=== PATIENT | male | born 1965 | race Caucasian/White ===

== ENCOUNTER 2018-02-25 13:41 | Inpatient (IN) | payer OTHER ==
[2018-02-25] MEDS ORDERED: SODIUM CHLORIDE 0.9% 500 ML 500 ML IV STA (14:31)
[2018-02-25] MEDS ORDERED: ALBUTEROL NEBULIZED 2.5 MG/3 ML INHALATION STA (14:31)
[2018-02-25] MEDS ORDERED: methylPREDNISolone SOD SUCCI 125 MG/2 ML VIAL IV STA (14:31)
[2018-02-25] MEDS ORDERED: IPRATROPIUM 0.5 MG/2.5 ML NEBU INHALATION STA (14:31)
--- NOTE | 2018-02-25 14:38 | ED ---
SOB HPI - General Chief Complaint: Shortness of Breath Stated Complaint: nausea, vomiting Time Seen by Provider: 02/25/18 14:25 Source: patient Mode of arrival: ambulatory Limitations: physical limitation - History of Present Illness Initial Comments: 52-year-old male patient with past medical history significant for end-stage COPD presents to the emergency department today with complaints of vomiting and shortness of breath. Patient states that he started to feel worse yesterday. Patient states he has vomited up amounts of phlegm multiple times over the last couple of days. States that he feels very short of breath. He does wear 3 L of oxygen at home, states that he feels like he needs to be increased. States he did do 2 breathing treatments today and doesn't seem to have helped. Patient denies any chest pain with this. Denies any abdominal pain with this. Denies any constipation or diarrhea. Last bowel movement was yesterday morning. Patient states he is now feeling hungry and is requesting food. He denies any swelling or weakness to his extremities. Denies any fevers or chills. Patient denies any recent rash, back pain, numbness, tingling, dizziness , weakness, hematuria, dysuria, urinary urgency, urinary frequency, headache, visual changes, or any other complaints. - Related Data Home Medications Medication Instructions Recorded Confirmed Acetaminophen Tab [Tylenol Tab] 650 mg PO Q4H 02/25/18 02/25/18 Albuterol Inhaler [Ventolin Hfa 1 - 2 puff INHALATION RT-Q4H PRN 02/25/18 Inhaler] Ibuprofen [Motrin] 600 mg PO Q6HR PRN 02/25/18 02/25/18 Ipratropium Nebulized [Atrovent 0.5 mg INHALATION RT-Q6H 02/25/18 02/25/18 Nebulized 0.2 MG/ML] Lisinopril 20 mg PO DAILY 02/25/18 02/25/18 cloNIDine HCL [Catapres] 0.1 mg PO Q4H PRN 02/25/18 02/25/18 traZODone HCL 50 mg PO HS 02/25/18 02/25/18 Allergies Allergy/AdvReac Type Severity Reaction Status Date / Time naloxone [From Narcan] Allergy Anaphylaxis Verified 02/25/18 16:29 Review of Systems ROS Statement: Those systems with pertinent positive or pertinent negative responses have been documented in the HPI. ROS Other: All systems not noted in ROS Statement are negative. Past Medical History Past Medical History: Cancer, COPD Additional Past Surgical History / Comment(s): LUNG SX WHEN A KID FOR CANCER Past Psychological History: No Psychological Hx Reported Smoking Status: Former smoker Past Alcohol Use History: None Reported Past Drug Use History: None Reported, Methamphetamine General Exam Limitations: physical limitation General appearance: alert, in no apparent distress, other (This well-developed, thin appearing adult male patient who appears her than stated age. Vital signs upon presentation are temperature 98.2F, pulse 85, respirations 24, blood pressure 154/82, pulse ox 91% on 3 L of oxygen via nasal cannula.) Eye exam: Present: normal appearance, PERRL, EOMI. Absent: scleral icterus, conjunctival injection, periorbital swelling ENT exam: Present: normal exam, normal oropharynx, mucous membranes moist, TM's normal bilaterally Respiratory exam: Present: accessory muscle use, decreased breath sounds, other (Tachypnea). Absent: normal lung sounds bilaterally, respiratory distress, wheezes, rales, rhonchi, stridor Cardiovascular Exam: Present: regular rate, normal rhythm, normal heart sounds. Absent: systolic murmur, diastolic murmur, rubs, gallop, clicks GI/Abdominal exam: Present: soft, tenderness (Tenderness right upper quadrant abdomen), guarding, normal bowel sounds. Absent: distended, rebound, rigid Neurological exam: Present: alert, oriented X3, CN II-XII intact Psychiatric exam: Present: normal affect, normal mood Skin exam: Present: warm, dry, intact, normal color. Absent: rash Course Vital Signs 02/25/18 02/25/18 02/25/18 13:55 15:03 15:20 Temperature 98.2 F Pulse Rate 85 85 85 Respiratory 16 Rate Blood Pressure 154/82 O2 Sat by Pulse 91 L Oximetry 02/25/18 16:01 Temperature Pulse Rate 85 Respiratory Rate Blood Pressure O2 Sat by Pulse Oximetry Medical Decision Making - Medical Decision Making 52-year-old male patient presents the emergency department today with complaints of shortness of breath or vomiting. Physical examination did reveal decreased breath sounds. Patient is 91% on 3 L of oxygen, appeared short of breath with accessory muscle use. Labs reviewed and did reveal mildly elevated potassium, elevated CO2. Patient did have elevated BNP but no signs of gross heart failure on x-ray. No extremity edema. Patient was given continuous breathing treatments and IV steroids. He does report symptom improvement however still satting 89-93% on 4 L of oxygen. We will admit for continued bronchodilators and IV steroids. Patient has a nonstaff physician so we will admit to Dr. Peraza. - Lab Data Result diagrams: 02/25/18 15:20 02/25/18 15:20 Lab Results 02/25/18 02/25/18 02/25/18 Range/Units 15:20 15:20 15:20 WBC 8.1 (3.8-10.6) k/uL RBC 5.34 (4.30-5.90) m/uL Hgb 16.8 (13.0-17.5) gm/dL Hct 52.4 (39.0-53.0) % MCV 98.0 (80.0-100.0) fL MCH 31.4 (25.0-35.0) pg MCHC 32.0 (31.0-37.0) g/dL RDW 13.4 (11.5-15.5) % Plt Count 264 (150-450) k/uL Neutrophils % 74 % Lymphocytes % 16 % Monocytes % 7 % Eosinophils % 1 % Basophils % 0 % Neutrophils # 6.0 (1.3-7.7) k/uL Lymphocytes # 1.3 (1.0-4.8) k/uL Monocytes # 0.5 (0-1.0) k/uL Eosinophils # 0.1 (0-0.7) k/uL Basophils # 0.0 (0-0.2) k/uL Hypochromasia Slight PT (9.0-12.0) sec INR (<1.2) APTT (22.0-30.0) sec Sodium 139 (137-145) mmol/L Potassium 5.8 H (3.5-5.1) mmol/L Chloride 93 L (98-107) mmol/L Carbon Dioxide 39 H (22-30) mmol/L Anion Gap 7 mmol/L BUN 29 H (9-20) mg/dL Creatinine 0.88 (0.66-1.25) mg/dL Est GFR (CKD-EPI)AfAm >90 (>60 ml/min/1.73 sqM) Est GFR (CKD-EPI)NonAf >90 (>60 ml/min/1.73 sqM) Glucose 80 (74-99) mg/dL Calcium 9.5 (8.4-10.2) mg/dL Magnesium 2.1 (1.6-2.3) mg/dL Total Bilirubin 0.8 (0.2-1.3) mg/dL AST 34 (17-59) U/L ALT 23 (21-72) U/L Alkaline Phosphatase 99 (38-126) U/L Total Creatine Kinase 77 (55-170) U/L CK-MB (CK-2) 5.0 H (0.0-2.4) ng/mL CK-MB (CK-2) Rel Index 6.5 Troponin I 0.018 (0.000-0.034) ng/mL NT-Pro-B Natriuret Pep pg/mL Total Protein 7.7 (6.3-8.2) g/dL Albumin 4.1 (3.5-5.0) g/dL Amylase 42 (30-110) U/L Lipase 20 L (23-300) U/L 02/25/18 02/25/18 Range/Units 15:20 15:20 WBC (3.8-10.6) k/uL RBC (4.30-5.90) m/uL Hgb (13.0-17.5) gm/dL Hct (39.0-53.0) % MCV (80.0-100.0) fL MCH (25.0-35.0) pg MCHC (31.0-37.0) g/dL RDW (11.5-15.5) % Plt Count (150-450) k/uL Neutrophils % % Lymphocytes % % Monocytes % % Eosinophils % % Basophils % % Neutrophils # (1.3-7.7) k/uL Lymphocytes # (1.0-4.8) k/uL Monocytes # (0-1.0) k/uL Eosinophils # (0-0.7) k/uL Basophils # (0-0.2) k/uL Hypochromasia PT 10.4 (9.0-12.0) sec INR 1.0 (<1.2) APTT 27.4 (22.0-30.0) sec Sodium (137-145) mmol/L Potassium (3.5-5.1) mmol/L Chloride (98-107) mmol/L Carbon Dioxide (22-30) mmol/L Anion Gap mmol/L BUN (9-20) mg/dL Creatinine (0.66-1.25) mg/dL Est GFR (CKD-EPI)AfAm (>60 ml/min/1.73 sqM) Est GFR (CKD-EPI)NonAf (>60 ml/min/1.73 sqM) Glucose (74-99) mg/dL Calcium (8.4-10.2) mg/dL Magnesium (1.6-2.3) mg/dL Total Bilirubin (0.2-1.3) mg/dL AST (17-59) U/L ALT (21-72) U/L Alkaline Phosphatase (38-126) U/L Total Creatine Kinase (55-170) U/L CK-MB (CK-2) (0.0-2.4) ng/mL CK-MB (CK-2) Rel Index Troponin I (0.000-0.034) ng/mL NT-Pro-B Natriuret Pep 3750 pg/mL Total Protein (6.3-8.2) g/dL Albumin (3.5-5.0) g/dL Amylase (30-110) U/L Lipase (23-300) U/L - EKG Data -: EKG Interpreted by [facility] EKG Comments: EKG obtained at 1437 shows sinus rhythm with PACs, right axis deviation, and incomplete right bundle branch block. Ventricular rate is 89, WA interval 164, QR latter day 106, QT 370, QTC 450. No evidence of ST elevation or depression. - Radiology Data Radiology results: report reviewed, image reviewed 3 views of the abdomen are obtained. There is no sign of intestinal obstruction or pneumoperitoneum. Fecal pattern is normal. There are no pathologic calcifications over the kidneys. No sign of a mass. There is apparent elevated left diaphragm. Impression by Dr. Moreno shows nonacute abdomen. Two-view x-ray of the chest is obtained. Heart appears enlarged. His elevated left diaphragm. There are surgical clips in the left side of the chest. Is no gross heart failure. There is coarsening of the lung markings. There is slight blunting of the right costophrenic angle. Impression by Dr. Moreno shows pulmonary fibrosis and atelectasis. Elevated left diaphragm could relate paralysis her previous surgery and pulmonary resection. Clinical correlation needed. No gross heart failure. Disposition Clinical Impression: COPD exacerbation Disposition: ADMITTED IP TO THIS [facility] Condition: Serious Referrals: Nonstaff,Physician [Primary Care Provider] - 1-2 days Decision to Admit Reason: Admit from EC Decision Date: 02/25/18 Decision Time: 17:09
[2018-02-25 15:43] LABS: Basophils % (A) 0 %; Eosinophils # (A) 0.1 k/uL (0-0.7); Eosinophils % (A) 1 %; HCT 52.4 % (39.0-53.0); HGB 16.8 gm/dL (13.0-17.5); Hypochromasia Slight; Lymphocytes # (A) 1.3 k/uL (1.0-4.8); Lymphocytes % (A) 16 %; MCH 31.4 pg (25.0-35.0); Mean Platelet Volume 7.1; Monocytes # (A) 0.5 k/uL (0-1.0); Monocytes % (A) 7 %; Neutrophils % (A) 74 %; Platelet Count 264 k/uL (150-450); RBC 5.34 m/uL (4.30-5.90); RDW 13.4 % (11.5-15.5); WBC 8.1 k/uL (3.8-10.6)
[2018-02-25 15:53] LABS: Partial Thromboplastin Time 27.4 sec (22.0-30.0); Prothrombin Time 10.4 sec (9.0-12.0)
[2018-02-25 15:54] LABS: ALT 23 U/L (21-72); AST 34 U/L (17-59); Albumin 4.1 g/dL (3.5-5.0); Alkaline Phosphatase 99 U/L (38-126); Amylase 42 U/L (30-110); Anion Gap 7 mmol/L; Blood Urea Nitrogen 29 mg/dL (9-20); Calcium 9.5 mg/dL (8.4-10.2); Carbon Dioxide 39 mmol/L (22-30); Chloride 93 mmol/L (98-107); Glucose 80 mg/dL (74-99); Lipase 20 U/L (23-300); Magnesium 2.1 mg/dL (1.6-2.3); Potassium 5.8 mmol/L (3.5-5.1); Sodium 139 mmol/L (137-145); Total Bilirubin 0.8 mg/dL (0.2-1.3); Total Protein 7.7 g/dL (6.3-8.2)
[2018-02-25 16:18] LABS: Troponin I 0.018 ng/mL (0.000-0.034)
--- NOTE | 2018-02-25 16:53 | XR ---
EXAMINATION TYPE: XR KUB DATE OF EXAM: 02/25/2018 COMPARISON: NONE HISTORY: Pain TECHNIQUE: 3 views supine FINDINGS: There is no sign of intestinal obstruction or pneumoperitoneum. Fecal pattern is normal. Th ere are no pathologic calcifications over the kidneys. There is no sign of a mass. There is apparent elevated left diaphragm. IMPRESSION: Nonacute abdomen.
--- NOTE | 2018-02-25 16:55 | XR ---
EXAMINATION TYPE: XR chest 2V DATE OF EXAM: 02/25/2018 COMPARISON: NONE HISTORY: Cough and congestion TECHNIQUE: Frontal and lateral views of the chest are obtained. FINDINGS: Heart appears enlarged. There is elevated left diaphragm. There are surgical clips in the left side of the chest. There is no gross heart failure. There is coarsening of the lung markings. Th ere is slight blunting of right costophrenic angle. IMPRESSION: Pulmonary fibrosis and atelectasis. Elevated left diaphragm could relate to paralysis or previous surgery and pulmonary resection. Clinical correlation needed. No gross heart failure.
[2018-02-25 17:42] LABS: Appearance,Urine Clear (Clear); Bilirubin,Urine Negative (Negative); Blood,Urine Negative (Negative); Color,Urine Yellow; Glucose,Urine (UA) Negative (Negative); Ketones,Urine Negative (Negative); Leukocyte Esterase,Urine Negative (Negative); Nitrite,Urine Negative (Negative); PH, Urine 5.5 (5.0-8.0); Protein,Urine Trace (Negative); Specific Gravity,Urine 1.017 (1.001-1.035); Urobilinogen,Urine <2.0 mg/dL (<2.0)
[2018-02-25] MEDS: ACETAMINOPHEN TAB 325 MG TAB PO SCH ×2 (18:09→22:41)
[2018-02-25] MEDS: methylPREDNISolone SOD SUCCI 125 MG/2 ML VIAL IV SCH (18:11)
[2018-02-25] MEDS: IPRATROPIUM-ALBUTEROL 3 ML NEB INHALATION SCH (20:15)
[2018-02-25] MEDS: traZODone HCL 50 MG TAB PO SCH (22:43)
[2018-02-25] MEDS: BENZONATATE 100 MG CAP PO SCH (22:43)
[2018-02-26] MEDS: DEXTROSE 5% IN WATER 1,000 ML IV SCH ×3 (00:21→19:48)
[2018-02-26] MEDS: methylPREDNISolone SOD SUCCI 125 MG/2 ML VIAL IV SCH ×4 (00:23→17:01)
[2018-02-26] MEDS: ACETAMINOPHEN TAB 325 MG TAB PO SCH (03:06)
[2018-02-26 07:24] LABS: Blood Urea Nitrogen 30 mg/dL (9-20); Calcium 9.2 mg/dL (8.4-10.2); Chloride 94 mmol/L (98-107); Glucose 218 mg/dL (74-99); Potassium 5.4 mmol/L (3.5-5.1); Sodium 138 mmol/L (137-145)
[2018-02-26 07:30] LABS: Anion Gap 6 mmol/L; Carbon Dioxide 38 mmol/L (22-30)
[2018-02-26] MEDS: IPRATROPIUM-ALBUTEROL 3 ML NEB INHALATION SCH ×4 (08:45→19:32)
[2018-02-26] MEDS: BENZONATATE 100 MG CAP PO SCH ×3 (09:02→21:10)
[2018-02-26] MEDS: LISINOPRIL 20 MG TAB PO SCH (09:02)
[2018-02-26] MEDS ORDERED: METHADONE 5 MG TAB PO SCH (11:00)
[2018-02-26] MEDS ORDERED: METHADONE 5 MG TAB PO ONE (12:03)
[2018-02-26] MEDS ORDERED: METHADONE 10 MG TAB PO ONE (12:15)
--- NOTE | 2018-02-26 13:34 | HP ---
HISTORY AND PHYSICAL CHIEF COMPLAINT: Difficulty breathing. HISTORY OF PRESENT ILLNESS: This is the first admission for this 52-year-old white male from [place]. He was brought to the emergency room with shortness of breath. He was treated, but did not improve and was admitted for inpatient care. REVIEW OF SYSTEMS: He has had no neurologic problems, difficulty with vision or hearing, hemoptysis, chest pain, heart disease, hypertension, orthopnea, PND, nausea, vomiting, hematemesis, melena, hematochezia, colitis, diverticulosis, diverticulitis, hemorrhoids, jaundice, hepatitis, cirrhosis, hematuria, frequency, urgency, renal failure, diabetes, etc. Past medical history, family history and personal and social histories reveal that he used an albuterol inhaler. Patient is also on Motrin 600 mg q.i.d., clonidine 0.1 q.4 hours, lisinopril 20 mg daily and trazodone 50 mg at bedtime. He is allergic NALOXONE. Laboratory studies reveal that his CBC is normal. Potassium was slightly high at 5.8. BUN is 29 with a creatinine of 0.88. Cardiac enzymes are normal. Urine was clear. PHYSICAL EXAM: Temperature is 97.9, blood pressure 157/89 with a respiratory rate of 20 and a pulse of 84. GENERAL: He appeared to be well developed, well nourished, in no acute distress. Skin color is normal. Skin is warm, dry. Lymph nodes not enlarged. Head, ears, eyes, nose, mouth, and throat were normal and neck veins not distended. Thyroid not enlarged. Chest demonstrated increased AP diameter with poor breath sounds throughout with expiratory wheezing and a prolonged expiratory phase. There is scattered rales and rhonchi. Cardiac exam demonstrates sinus tachycardia. Abdomen is soft, nontender without visceromegaly or masses. Extremities are normal. Neurologically, he is intact. He is admitted to the hospital with diagnoses: 1. Exacerbation of chronic obstructive pulmonary disease. 2. History of substance abuse. 3. History of hypertension. 4. Possible history of Hodgkin disease by history. PLAN: 1. Bed rest. 2. IV fluids. 3. IV and inhaled steroids. 4. Maintain his methadone. MMODL / IJN: [id number] /
--- NOTE | 2018-02-26 15:40 | PN ---
PROGRESS NOTE CHIEF COMPLAINT: Exacerbation COPD. HISTORY OF PRESENT ILLNESS: This gentleman is doing a little bit better. Breathing has improved and he has less bronchospasm. REVIEW OF SYSTEMS: He has had no chest pain, shortness of breath, cough, etc. PHYSICAL EXAMINATION: Breath sounds are improved. He still has wheezing on inspiration and expiration with scattered rales and rhonchi. Cardiac exam is normal. IMPRESSION: 1. Exacerbation of chronic obstructive pulmonary disease. 2. History of hypertension. 3. History of opiate abuse. 4. Possible Hodgkin's disease. PLAN: 1. Refill his methadone. 2. Continue on current treatment. MMODL / IJN: [id number] /
[2018-02-26] MEDS: traZODone HCL 50 MG TAB PO SCH (21:10)
[2018-02-27] MEDS: methylPREDNISolone SOD SUCCI 125 MG/2 ML VIAL IV SCH ×5 (00:20→23:19)
[2018-02-27] MEDS: IPRATROPIUM-ALBUTEROL 3 ML NEB INHALATION PRN (04:23)
[2018-02-27] MEDS: DEXTROSE 5% IN WATER 1,000 ML IV SCH (04:26)
[2018-02-27] MEDS: ACETAMINOPHEN TAB 325 MG TAB PO PRN ×2 (04:38→15:17)
[2018-02-27 07:14] LABS: Basophils % (A) 0 %; Eosinophils % (A) 1 %; HCT 50.6 % (39.0-53.0); HGB 15.4 gm/dL (13.0-17.5); Hypochromasia Moderate; Lymphocytes # (A) 0.5 k/uL (1.0-4.8); Lymphocytes % (A) 9 %; MCH 30.6 pg (25.0-35.0); MCHC 30.5 g/dL (31.0-37.0); MCV 100.5 fL (80.0-100.0); Monocytes # (A) 0.5 k/uL (0-1.0); Monocytes % (A) 9 %; Neutrophils # (A) 4.7 k/uL (1.3-7.7); Neutrophils % (A) 79 %; Platelet Count 276 k/uL (150-450); RBC 5.04 m/uL (4.30-5.90); RDW 13.2 % (11.5-15.5); WBC 5.9 k/uL (3.8-10.6)
[2018-02-27 07:24] LABS: ALT 23 U/L (21-72); AST 20 U/L (17-59); Albumin 3.4 g/dL (3.5-5.0); Alkaline Phosphatase 87 U/L (38-126); Anion Gap 3 mmol/L; Blood Urea Nitrogen 27 mg/dL (9-20); Calcium 9.2 mg/dL (8.4-10.2); Carbon Dioxide 39 mmol/L (22-30); Chloride 100 mmol/L (98-107); Glucose 146 mg/dL (74-99); Potassium 5.5 mmol/L (3.5-5.1); Sodium 142 mmol/L (137-145); Total Bilirubin 0.3 mg/dL (0.2-1.3); Total Protein 6.5 g/dL (6.3-8.2)
[2018-02-27] MEDS: LISINOPRIL 20 MG TAB PO SCH (07:40)
[2018-02-27] MEDS: BENZONATATE 100 MG CAP PO SCH ×3 (07:40→21:01)
[2018-02-27] MEDS: METHADONE 10 MG TAB PO SCH (07:40)
[2018-02-27] MEDS: IPRATROPIUM-ALBUTEROL 3 ML NEB INHALATION SCH ×4 (08:40→20:28)
[2018-02-27] MEDS: cloNIDine HCL 0.1 MG TAB PO PRN ×2 (15:17→22:06)
--- NOTE | 2018-02-27 19:44 | PN ---
PROGRESS NOTE DATE OF SERVICE: 02/27/2018. CHIEF COMPLAINT: COPD. HISTORY OF PRESENT ILLNESS: This gentleman still quite congested, quite wheezy. He is able to move about the room, becomes quickly short, but becomes quickly short of breath. PHYSICAL EXAM: He has continued inspiratory and expiratory wheezing with slightly prolonged expiratory phase with rales. Cardiac exam is normal. IMPRESSION: Exacerbation of chronic obstructive pulmonary disease. PLAN: Continue on current program. He is anxious to be discharged tomorrow and will try to send him home on a Medrol Dosepak and he will go back to [place]. MMODL / IJN: [id number] /
[2018-02-27] MEDS: traZODone HCL 50 MG TAB PO SCH (21:01)
[2018-02-27] MEDS ORDERED: LISINOPRIL 20 MG TAB PO STA (23:52)
[2018-02-28] MEDS: IPRATROPIUM-ALBUTEROL 3 ML NEB INHALATION PRN ×4 (00:38→23:37)
[2018-02-28] MEDS: DEXTROSE 5% IN WATER 1,000 ML IV SCH ×4 (01:26→21:26)
[2018-02-28] MEDS: IPRATROPIUM-ALBUTEROL 3 ML NEB INHALATION SCH ×4 (07:45→15:59)
[2018-02-28] MEDS: LISINOPRIL 20 MG TAB PO SCH (08:05)
[2018-02-28] MEDS: BENZONATATE 100 MG CAP PO SCH ×2 (08:05→21:18)
[2018-02-28] MEDS: METHADONE 10 MG TAB PO SCH (08:05)
[2018-02-28] MEDS: cloNIDine HCL 0.1 MG TAB PO PRN ×2 (08:05→15:38)
[2018-02-28] MEDS: methylPREDNISolone SOD SUCCI 125 MG/2 ML VIAL IV SCH ×3 (09:28→21:23)
[2018-02-28] MEDS ORDERED: busPIRone HCl 5 MG TAB PO STA (10:49)
--- NOTE | 2018-02-28 13:25 | PN ---
PROGRESS NOTE CHIEF COMPLAINT: Exacerbation of chronic obstructive pulmonary disease. HISTORY OF PRESENT ILLNESS: This gentleman is actually doing worse. He is more short of breath and more congested. He is not running a fever. PHYSICAL EXAM: Breath sounds were terrible. He has bilateral wheezes, rales and rhonchi with prolonged expiratory phase. He is coughing up a lot of thick creamy sputum. IMPRESSION: Exacerbation of chronic obstructive pulmonary disease with pneumonitis. PLAN: Continue current program and see if he can be discharged relatively soon. He is anxious to get out of the hospital, but he is not responding well. MMODL / IJN: [id number] /
[2018-02-28] MEDS ORDERED: LEVOFLOXACIN 500 MG TAB PO SCH (15:30)
[2018-02-28] MEDS ORDERED: methylPREDNISolone SOD SUCCI 125 MG/2 ML VIAL IV STA (15:37)
[2018-02-28 15:46] LABS: ABG Base Excess 18.5 mmol/L; ABG Oxygen Saturation 89.3 % (94-97); ABG PH 7.37 (7.35-7.45); ABG TCO2 46 mmol/L (19-24)
--- NOTE | 2018-02-28 15:50 | XR ---
EXAMINATION TYPE: XR chest 1V portable DATE OF EXAM: 02/28/2018 COMPARISON: 02/25/2018 HISTORY: Short of breath TECHNIQUE: Single frontal view of the chest is obtained. FINDINGS: There is no heart failure. There is blunting of costophrenic angles consistent with some p leural scarring. There is linear density at the left lung base and slight elevated left diaphragm. Th ere are surgical clips in the left lower lobe. There are clips at the mediastinum. IMPRESSION: Previous surgery. Pleural diaphragmatic scarring. No acute lung disease. No change. No h eart failure seen.
[2018-02-28] MEDS ORDERED: BUDESONIDE 1 MG/2 ML NEBU INHALATION STA (15:59)
[2018-02-28] MEDS ORDERED: FORMOTEROL FUMARATE 20 MCG/2 ML NEBU INHALATION STA (16:04)
[2018-02-28 16:15] LABS: ABG HCO3 44 mmol/L (21-25); ABG PCO2 76 mmHg (35-45); ABG PO2 55 mmHg (83-108)
[2018-02-28] MEDS ORDERED: ALPRAZolam 0.5 MG TAB PO PRN (16:29)
[2018-02-28] MEDS ORDERED: ALPRAZolam 0.5 MG TAB PO STA (16:39)
[2018-02-28 17:32] LABS: ABG Base Excess 17.3 mmol/L; ABG Oxygen Saturation 70.5 % (94-97); ABG PH 7.26 (7.35-7.45); ABG TCO2 47 mmol/L (19-24)
[2018-02-28 17:33] LABS: Glucose,Whole Blood 108 mg/dL (75-99)
[2018-02-28 17:35] LABS: ABG HCO3 44 mmol/L (21-25); ABG PCO2 99 mmHg (35-45); ABG PO2 41 mmHg (83-108)
[2018-02-28] MEDS ORDERED: ACETAMINOPHEN IV (For NPO) 1,000 MG in EMPTY BAG 1 BAG IVPB ONE (17:38)
[2018-02-28] MEDS ORDERED: PROPOFOL 10 MG/ML 20 ML VIAL IV ONE (17:45)
[2018-02-28] MEDS ORDERED: MIDAZOLAM 1 MG/ML 5 ML VIAL ONE (17:45)
[2018-02-28] MEDS: PROPOFOL 1,000 MG in EMPTY BAG 1 BAG IV SCH (17:45)
[2018-02-28] MEDS ORDERED: Potassium Replacement Protocol 1 EACH MISC MISCELLANE PRN (17:47)
[2018-02-28] MEDS ORDERED: Magnesium Replacement Protocol 1 EACH MISC MISCELLANE PRN (17:47)
[2018-02-28] MEDS ORDERED: Phosphorus Replacement Protoco 1 EACH MISC MISCELLANE PRN (17:47)
[2018-02-28 17:54] LABS: Anion Gap 9 mmol/L; Blood Urea Nitrogen 22 mg/dL (9-20); Calcium 9.7 mg/dL (8.4-10.2); Carbon Dioxide 37 mmol/L (22-30); Chloride 95 mmol/L (98-107); Glucose 128 mg/dL (74-99); Magnesium 1.8 mg/dL (1.6-2.3); Potassium 4.9 mmol/L (3.5-5.1); Sodium 141 mmol/L (137-145)
[2018-02-28] MEDS ORDERED: SODIUM CHLORIDE 0.9% 1,000 ML IV ONE (18:00)
[2018-02-28 18:05] LABS: HGB 17.3 gm/dL (13.0-17.5); Hypochromasia Moderate; MCH 30.5 pg (25.0-35.0); MCHC 30.4 g/dL (31.0-37.0); MCV 100.1 fL (80.0-100.0); Platelet Count 247 k/uL (150-450); RBC 5.68 m/uL (4.30-5.90); RDW 13.4 % (11.5-15.5); WBC 11.6 k/uL (3.8-10.6)
[2018-02-28 18:12] LABS: HCT 56.9 % (39.0-53.0)
--- NOTE | 2018-02-28 18:36 | XR ---
EXAMINATION TYPE: XR chest 1V portable DATE OF EXAM: 02/28/2018 COMPARISON: Today HISTORY: Check tube placement TECHNIQUE: Single frontal view of the chest is obtained. FINDINGS: There is endotracheal tube with the tip 2.5 cm from the noemi. Nasogastric tube is in goo d position in the stomach. There is left lower lobe surgery with some scarring and atelectasis. Heart is enlarged. There is no heart failure. There are chest leads. No pneumothorax. IMPRESSION: Heart and lungs unchanged compared to earlier exam today.
[2018-02-28 19:29] LABS: Band Neutrophils % 5 %; Lymphocytes # (M) 1.16 k/uL (1.0-4.8); Metamyelocytes # (M) 0.12 k/uL (0); Metamyelocytes % 1 %; Monocytes # (M) 1.97 k/uL (0-1.0); Myelocytes # (M) 0.46 k/uL (0); Myelocytes % 4 %; Neutrophils % (M) 65 %; Nucleated Red Blood Cells 0 /100 WBC (0-0); Total Cells Counted 200
[2018-02-28] MEDS: BUDESONIDE 1 MG/2 ML NEBU INHALATION SCH (19:30)
[2018-02-28] MEDS: FORMOTEROL FUMARATE 20 MCG/2 ML NEBU INHALATION SCH (19:30)
[2018-02-28 19:52] LABS: ABG Base Excess 15.7 mmol/L; ABG PCO2 66 mmHg (35-45); ABG PO2 >400 mmHg (83-108); ABG TCO2 43 mmol/L (19-24)
[2018-02-28 19:55] LABS: ABG HCO3 41 mmol/L (21-25)
[2018-02-28] MEDS ORDERED: ACETAMINOPHEN IV (For NPO) 1,000 MG in EMPTY BAG 1 BAG IVPB PRN (20:42)
[2018-02-28] MEDS: CHLORHEXIDINE GLUCONATE 15 ML CUP MUCOUS MEM SCH (21:21)
[2018-02-28] MEDS: traZODone HCL 50 MG TAB PO SCH (21:53)
[2018-02-28] MEDS: SODIUM CHLORIDE 0.9% 1,000 ML IV SCH (21:54)
[2018-02-28 21:55] LABS: Appearance,Urine Clear (Clear); Bilirubin,Urine Negative (Negative); Blood,Urine Small (Negative); Color,Urine Yellow; Glucose,Urine (UA) Negative (Negative); Hyaline Casts,Urine 83 /lpf (0-2); Ketones,Urine Negative (Negative); Leukocyte Esterase,Urine Negative (Negative); Mucus,Urine Rare /hpf; Nitrite,Urine Negative (Negative); PH, Urine 6.5 (5.0-8.0); Protein,Urine 2+ (Negative); RBC,Urine 2 /hpf (0-5); Specific Gravity,Urine 1.015 (1.001-1.035); Squamous Epithelial Cell,Urine <1 /hpf (0-4); Urobilinogen,Urine <2.0 mg/dL (<2.0)
[2018-02-28] MEDS ORDERED: VANCOMYCIN IV PER PHARMACY 1 EACH MISC MISCELLANE PRN (23:29)
[2018-02-28 23:58] LABS: Glucose,Whole Blood 140 mg/dL (75-99)
[2018-03-01] MEDS: VANCOMYCIN 1,250 MG in SODIUM CHLORIDE 0.9% 250 ML IVPB SCH ×3 (00:18→17:23)
[2018-03-01] MEDS: HEPARIN SODIUM,PORCINE 5,000 UNIT/ML 1 ML VIAL SQ SCH ×3 (00:18→17:23)
[2018-03-01] MEDS: methylPREDNISolone SOD SUCCI 125 MG/2 ML VIAL IV SCH ×4 (00:18→18:46)
[2018-03-01] MEDS: PIPERACILLIN-TAZOBACTAM 3.375 GM in SODIUM CHLORIDE 0.9% 100 ML IVPB SCH ×3 (00:18→17:22)
[2018-03-01] MEDS: INSULIN ASPART 100 UNIT/ML 1 ML 10 ML VIAL SQ SCH ×4 (00:18→19:27)
[2018-03-01] MEDS: PROPOFOL 1,000 MG in EMPTY BAG 1 BAG IV SCH ×4 (00:22→18:48)
[2018-03-01 00:25] LABS: Glucose,Whole Blood 185 mg/dL (75-99)
[2018-03-01] MEDS: IPRATROPIUM-ALBUTEROL 3 ML NEB INHALATION PRN ×2 (03:32→23:49)
[2018-03-01 05:26] LABS: ABG Oxygen Saturation 97.9 % (94-97); ABG PCO2 55 mmHg (35-45); ABG PH 7.48 (7.35-7.45); ABG PO2 84 mmHg (83-108); ABG TCO2 43 mmol/L (19-24)
[2018-03-01 05:28] LABS: ABG HCO3 41 mmol/L (21-25)
[2018-03-01 05:39] LABS: Glucose,Whole Blood 108 mg/dL (75-99)
[2018-03-01 05:52] LABS: HCT 47.8 % (39.0-53.0); HGB 14.4 gm/dL (13.0-17.5); Hypochromasia Slight; MCH 29.8 pg (25.0-35.0); MCHC 30.2 g/dL (31.0-37.0); MCV 98.9 fL (80.0-100.0); Mean Platelet Volume 6.9; Platelet Count 243 k/uL (150-450); RBC 4.84 m/uL (4.30-5.90); RDW 13.5 % (11.5-15.5); WBC 7.5 k/uL (3.8-10.6)
[2018-03-01 06:06] LABS: Anion Gap 4 mmol/L; Blood Urea Nitrogen 24 mg/dL (9-20); Calcium 9.2 mg/dL (8.4-10.2); Carbon Dioxide 38 mmol/L (22-30); Chloride 100 mmol/L (98-107); Glucose 113 mg/dL (74-99); Magnesium 1.9 mg/dL (1.6-2.3); Phosphorus 2.2 mg/dL (2.5-4.5); Potassium 4.4 mmol/L (3.5-5.1); Sodium 142 mmol/L (137-145)
[2018-03-01 06:19] LABS: Band Neutrophils % 31 %; Lymphocytes # (M) 1.13 k/uL (1.0-4.8); Metamyelocytes # (M) 0.08 k/uL (0); Metamyelocytes % 1 %; Monocytes # (M) 0.75 k/uL (0-1.0); Neutrophils % (M) 44 %; Nucleated Red Blood Cells 0 /100 WBC (0-0); Total Cells Counted 200; Toxic Granulation Present
[2018-03-01] MEDS ORDERED: Magnesium Replacement Protocol 1 EACH MISC MISCELLANE PRN (06:39)
--- NOTE | 2018-03-01 06:40 | CONS ---
CONSULTATION DATE OF SERVICE: 02/28/2018. REASON FOR CONSULTATION: Pneumonia. HISTORY OF PRESENT ILLNESS: The patient is a 52-year-old male with a past medical history significant for end-stage COPD presenting to the ER at [facility] on 02/25/2018 in the afternoon with chief complaints of increasing shortness of breath. His symptoms has been getting worse over the last 2-3 days and significant worse yesterday come to the hospital. The patient with increasing shortness of breath on minimal exertion and even at rest. He also had associated cough which is [id number] in intensity and bringing up some yellowish sputum but no hemoptysis. The patient also complained of some pain on the left side of the chest, especially taking deep breaths and coughing. With these symptoms, the patient has been evaluated by the ER physician. The patient did have initial chest x-ray, which shows pulmonary fibrosis and atelectasis elevated left hemidiaphragm could be related to of previous surgery. The patient did not have any fever since the patient has been admitted to the hospital. White count was normal. He was treated with steroids and bronchodilator therapy and no antibiotics. I was asked to see the patient today for further recommendation regarding antibiotic therapy. The patient did went into respiratory distress and has to be intubated and transferred out to the ICU. REVIEW OF SYSTEMS: Positive points have been mentioned in HPI. The other systems have been negative. MEDICAL HISTORY: End-stage COPD, pneumonia. History of lung cancer. PAST SURGICAL HISTORY: Left lung lobectomy for the cancer. SOCIAL HISTORY: Remote history of smoking. No drinking or drug use. FAMILY HISTORY: No pertinent findings noticed. ALLERGIES: MEDICATION: Medications include the patient is currently on: Solu-Medrol, Tylenol, DuoNeb, Xanax, Pulmicort, Catapres, heparin, NovoLog, Zestril, Protonix. EXAMINATION: Blood pressure 124/83, pulse of 84, temperature 98. He is 91% on 40% FiO2. General description is a middle-aged male lying in bed in no distress. No tachypnea or accessory muscles of respiration use. HEENT: No pallor or scleral icterus. Oral mucosal membranes are dry. No pharyngeal erythema or thrush. Neck trachea central. No thyromegaly. Lungs unlabored breathing. Coarse breath sounds at the bases, bilateral wheeze. Heart S1, S2. Regular rate and rhythm. ABDOMEN: Soft, no tenderness. No guarding or rigidity. EXTREMITIES: No edema of the feet. Skin examination: No rash or mass palpable. Neurologically, awake, alert, and oriented times three. Mood and affect normal. LABS: Hemoglobin is 17.8, white count 11.6, BUN of 22, creatinine 0.55. Lactic acid 2.6. No cultures done during this admission. DIAGNOSTIC IMPRESSION AND PLAN: Patient admitted to the hospital with increasing shortness of breath. He did have a cough productive of grayish yellowish sputum with evidence of left lower lobe infiltrate, likely representing chronic obstructive pulmonary disease, in a patient with secondary pneumonia in a patient who does have a history of end-stage chronic obstructive pulmonary disease, previous history of lung cancer status post resection, will need to cover for the resistant gram-positive as well as gram-negative pathogen. PLAN: 1. Blood cultures times two STAT. 2. Sputum for Gram stain culture and sensitivity. 3. We will start the patient on vancomycin pharmacy to dose target of 15 and Zosyn 3.375 q.8 hours. 4. We will follow up on clinical condition and culture to further adjust medication if needed. Thank you for this consultation. We will follow this patient along with you. MMODL / IJN: [id number] /
[2018-03-01] MEDS: MAGNESIUM SULFATE-D5W PMX 1 GM in DEXTROSE/WATER 1 100ML.BAG IVPB SCH ×2 (06:46→08:12)
--- NOTE | 2018-03-01 07:04 | XR ---
EXAMINATION TYPE: XR chest 1V portable DATE OF EXAM: 03/01/2018 CLINICAL HISTORY: Difficulty breathing progress study. TECHNIQUE: Single AP portable semiupright view of the chest is obtained. COMPARISON: Chest x-ray from one day earlier and older studies. FINDINGS: An endotracheal tube and orogastric tube are stable in appearance. Consider advancing orog astric tube with side-port is below diaphragm. Overlying sternal wires and mediastinal clips extendin g along left heart border are redemonstrated. There is persistent elevated left hemidiaphragm. There is persistent small bilateral pleural effusion s and/or pleural thickening with associated left basilar atelectasis and/or infiltrate. Upper lungs r emain clear without pneumothorax. Cardiac silhouette size is stable and mildly enlarged. Osseous stru ctures are intact. IMPRESSION: Overall stable findings, mild cardiomegaly and chronic parenchymal changes with small bi lateral pleural effusions and/or pleural thickening with associated left basilar atelectasis and/or i nfiltrate all redemonstrated.
[2018-03-01] MEDS: FORMOTEROL FUMARATE 20 MCG/2 ML NEBU INHALATION SCH ×2 (07:08→20:01)
[2018-03-01] MEDS: IPRATROPIUM-ALBUTEROL 3 ML NEB INHALATION SCH ×4 (07:08→20:01)
[2018-03-01] MEDS: BUDESONIDE 1 MG/2 ML NEBU INHALATION SCH ×2 (07:08→20:01)
[2018-03-01] MEDS: CHLORHEXIDINE GLUCONATE 15 ML CUP MUCOUS MEM SCH ×2 (10:04→20:02)
[2018-03-01] MEDS: LISINOPRIL 20 MG TAB PO SCH (10:04)
[2018-03-01] MEDS: METHADONE 10 MG TAB PO SCH (10:05)
[2018-03-01] MEDS: PANTOPRAZOLE 40 MG/10 ML VIAL IV SCH (10:05)
--- NOTE | 2018-03-01 10:30 | P.CNPUL ---
History of Present Illness Consult date: 03/01/18 Requesting physician: Jer Peraza Reason for consult: dyspnea, COPD, other Chief complaint: Acute exacerbation of COPD, EtOH withdrawal History of present illness: This is a 52-year-old white male patient with past medical history for advanced COPD, with chronic hypoxic respiratory failure, EtOH abuse, past history of narcotic and methamphetamine abuse, currently on methadone, former smoker, lung cancer with the left lobectomy in childhood, and the details are not available to us at this time, was brought to the emergency department on per EMS, from the [facility] with complaints of increasing shortness of breath, vomiting. Recent had multiple episodes of vomiting over the 2 days prior to admission. No fever or chills, no chest pain , no weakness, dizziness, no urinary symptoms, no headaches, no abdominal pain. Admission chest x-ray showed elevated left hemidiaphragm related to previous pulmonary resection, evidence of heart failure, was questioning of the lung markings, slight blunting of the right costophrenic angle. Abdominal x-ray was negative. CBC was within normal limits on admission, chemistry showed sodium of 139, potassium is 5.8, chloride 93, CO2 is 39, BUN was 29 and creatinine was 0.8, LFTs were within normal limits, proBNP was elevated at 3750, troponin was 0.018, lipase was 20, and amylase was 42, urinalysis was negative. Influenza was not detected. Patient was started on breathing treatments, empiric antibiotics, he was admitted to regular medical surgical floor. On 02/28/2018 epidural response was called to the patient's room with concerns of worsening shortness of breath, blood gas was obtained, and showed pO2 of greater than 400 , pCO2 of 66, and pH of 7.40. His was done on FiO2 of 100%. Patient was quite tachypneic, and respiratory distress. His pulse ox was 76% on nasal cannula at 6 L. Patient was placed on BiPAP support, but shortly after with the rapid response team was called back to the room, is a patient was intolerant of BiPAP , he was severely anxious, he was requesting to be intubated, apparently patient had been intubated before. repeat chest was obtained, showed no acute lung disease, no change, no heart failure. Follow-up chest x-ray same day showed similar findings. In view of severe respiratory distress related to acute hypoxemic respiratory failure patient was intubated and placed on mechanical ventilator. Morning was seen the patient in the intensive care unit , he is sedated, he is on mechanical ventilator, current vent settings are assist-control mode of 22 breaths per minute, tidal volume of 450, FiO2 40% and PEEP of 5, morning blood gases were reviewed, and showed pO2 of 84, pCO2 55, and pH is 7.48. This morning's chest x-ray was reviewed with Dr. Calderon, and showed overall stable findings, mild cardiomegaly and small bilateral pleural effusions, left basilar atelectasis. Maintenance IV fluid is 0.9 normal saline at a rate of 75 ML per hour, Diprivan is at 65 mics per kilo per minute. ID service is following, Gram stain of the sputum showed many gram-negative cocci bacilli, and rare gram-positive cocci. Final cultures in progress. Afebrile, hemodynamically stable. Plasma lactic acid was elevated at 3.5, this morning is down to 2.1, patient was given IV fluids. Antibiotic coverage with Levaquin and vancomycin. Review of Systems All systems: negative Constitutional: Denies chills, Denies fever Eyes: denies blurred vision, denies pain Ears, nose, mouth and throat: Denies headache, Denies sore throat Cardiovascular: Denies chest pain, Denies shortness of breath Respiratory: Reports cough with sputum, Reports dyspnea, Reports home oxygen, Denies cough Gastrointestinal: Reports vomiting, Denies abdominal pain, Denies diarrhea, Denies nausea Musculoskeletal: Denies myalgias Integumentary: Denies pruritus, Denies rash Neurological: Denies numbness, Denies weakness Psychiatric: Denies anxiety, Denies depression Endocrine: Denies fatigue, Denies weight change Past Medical History Past Medical History: Cancer, COPD History of Any Multi-Drug Resistant Organisms: None Reported Additional Past Surgical History / Comment(s): LUNG SX WHEN A KID FOR CANCER Past Anesthesia/Blood Transfusion Reactions: No Reported Reaction Past Psychological History: No Psychological Hx Reported Smoking Status: Former smoker Past Alcohol Use History: None Reported Additional Past Alcohol Use History / Comment(s): start smoking at the age 11, stop smoking on Feb 062017 Past Drug Use History: Methamphetamine Additional Drug Use History / Comment(s): Patient has been a [facility] for the past 8 days Medications and Allergies Home Medications Medication Instructions Recorded Confirmed Type Acetaminophen Tab [Tylenol Tab] 650 mg PO Q4H 02/25/18 02/25/18 History Albuterol Inhaler [Ventolin Hfa 1 - 2 puff INHALATION RT-Q4H PRN 02/25/18 History Inhaler] Ibuprofen [Motrin] 600 mg PO Q6HR PRN 02/25/18 02/25/18 History Ipratropium Nebulized [Atrovent 0.5 mg INHALATION RT-Q6H 02/25/18 02/25/18 History Nebulized 0.2 MG/ML] Lisinopril 20 mg PO DAILY 02/25/18 02/25/18 History cloNIDine HCL [Catapres] 0.1 mg PO Q4H PRN 02/25/18 02/25/18 History traZODone HCL 50 mg PO HS 02/25/18 02/25/18 History Allergies Allergy/AdvReac Type Severity Reaction Status Date / Time naloxone [From Narcan] Allergy Anaphylaxis Verified 02/25/18 16:29 Physical Exam Vitals: Vital Signs Temp Pulse Resp BP Pulse Ox 03/01/18 08:00 98.2 F 61 22 128/93 94 L 03/01/18 07:53 66 03/01/18 07:30 61 22 144/100 97 03/01/18 07:26 60 03/01/18 07:25 60 03/01/18 07:13 60 03/01/18 07:00 58 L 22 134/93 95 03/01/18 06:30 62 22 131/95 95 03/01/18 06:00 60 18 138/105 95 03/01/18 05:30 60 18 149/101 96 03/01/18 05:00 60 22 131/95 81 L 03/01/18 04:30 72 22 121/83 96 03/01/18 04:00 96.9 F L 62 23 127/85 95 03/01/18 03:47 62 03/01/18 03:40 71 03/01/18 03:30 63 22 117/89 96 03/01/18 03:00 60 22 121/91 96 03/01/18 02:30 61 22 121/85 95 03/01/18 02:00 61 18 127/92 94 L 03/01/18 01:30 69 22 122/87 93 L 03/01/18 01:00 64 22 121/83 93 L 03/01/18 00:30 66 22 121/85 93 L 03/01/18 00:10 65 22 131/90 93 L 03/01/18 00:00 98.1 F 62 22 141/95 95 02/28/18 23:55 71 02/28/18 23:40 80 02/28/18 23:30 83 22 120/85 91 L 02/28/18 23:00 84 22 124/83 89 L 02/28/18 22:30 81 22 120/58 91 L 02/28/18 22:00 85 22 124/81 93 L 02/28/18 21:30 82 22 131/89 95 02/28/18 21:00 82 22 132/91 99 02/28/18 20:30 74 22 106/77 99 02/28/18 20:04 78 02/28/18 20:00 97.6 F 80 22 101/73 100 02/28/18 19:57 79 02/28/18 19:50 73 02/28/18 19:30 80 22 91/65 98 02/28/18 19:00 78 22 115/86 100 02/28/18 18:30 90 26 H 126/97 97 02/28/18 18:00 102 H 17 133/93 98 02/28/18 17:40 130 H 29 H 76 L 02/28/18 16:23 123 H 02/28/18 16:02 100 02/28/18 16:00 91 L 02/28/18 15:55 56 L 02/28/18 14:35 56 L 02/28/18 14:26 52 L 02/28/18 11:18 96 02/28/18 11:11 88 Intake and Output 02/28/18 03/01/18 03/01/18 22:59 06:59 14:59 Intake Total 1400.00 494.88 130.12 Output Total 526 1015 95 Balance 874.00 -520.12 35.12 Intake: IV 300 450 75 Normal Saline 300 Sodium Chloride 0.9% 1, 450 75 000 ml @ 75 mls/hr IV . [id number] [facility] Rx#:[id number] Intake, IV Titration 1100.00 44.88 55.12 Amount Propofol 1,000 mg In 100.00 44.88 55.12 Empty Bag 1 bag @ Titrate IV .Q0M [facility] Rx#: [id number] Sodium Chloride 0.9% 1, 1000 000 ml @ 999 mls/hr IV . Q1H1M [facility] Rx#:[id number] Output: Urine 525 1015 95 Stool 1 Other: Voiding Method Indwelling Catheter Indwelling Catheter Weight 75 kg GENERAL EXAM: Sedated, 52-year-old white male, intubated on mechanical ventilator comfortable in no apparent distress. HEAD: Normocephalic/atraumatic. EYES: Normal reaction of pupils, equal size. Conjunctiva pink, sclera white. NOSE: Clear with pink turbinates. THROAT: No erythema or exudates. NECK: No masses, no JVD, no thyroid enlargement, no adenopathy. CHEST: No chest wall deformity. Symmetrical expansion. LUNGS: Equal air entry with a few sand expiratory wheezes CVS: Regular rate and rhythm, normal S1 and S2, no gallops, no murmurs, no rubs ABDOMEN: Soft, nontender. No hepatosplenomegaly, normal bowel sounds, no guarding or rigidity. EXTREMITIES: No clubbing, no edema, no cyanosis, 2+ pulses and upper and lower extremities. MUSCULOSKELETAL: Muscle strength and tone normal. SPINE: No scoliosis or deformity SKIN: No rashes CENTRAL NERVOUS SYSTEM: Sedated. No focal deficits, tone is normal in all 4 extremities. Results - Laboratory Findings CBC and BMP: 03/01/18 05:30 03/01/18 05:30 ABG ABG pH 7.48 (7.35-7.45) H 03/01/18 05:24 ABG pCO2 55 mmHg (35-45) H 03/01/18 05:24 ABG pO2 84 mmHg (83-108) 03/01/18 05:24 ABG O2 Saturation 97.9 % (94-97) H 03/01/18 05:24 PT/INR, D-dimer PT 10.4 sec (9.0-12.0) 02/25/18 15:20 INR 1.0 (<1.2) 02/25/18 15:20 Abnormal lab findings: Abnormal Labs 02/25/18 02/25/18 02/25/18 15:20 15:20 17:25 WBC Hct MCV MCHC Neutrophils # (Manual) Lymphocytes # Monocytes # (Manual) Metamyelocytes # (Man) Myelocytes # (Manual) ABG pH ABG pCO2 ABG pO2 ABG HCO3 ABG Total CO2 ABG O2 Saturation Potassium 5.8 H Chloride 93 L Carbon Dioxide 39 H BUN 29 H Creatinine Glucose POC Glucose (mg/dL) Plasma Lactic Acid Refugio Phosphorus CK-MB (CK-2) 5.0 H Albumin Lipase 20 L Urine Protein Trace H Urine Blood Hyaline Casts Urine Mucus 02/26/18 02/27/18 02/27/18 06:21 06:45 06:45 WBC Hct MCV 100.5 H MCHC 30.5 L Neutrophils # (Manual) Lymphocytes # 0.5 L Monocytes # (Manual) Metamyelocytes # (Man) Myelocytes # (Manual) ABG pH ABG pCO2 ABG pO2 ABG HCO3 ABG Total CO2 ABG O2 Saturation Potassium 5.4 H 5.5 H Chloride 94 L Carbon Dioxide 38 H 39 H BUN 30 H 27 H Creatinine Glucose 218 H 146 H POC Glucose (mg/dL) Plasma Lactic Acid Refugio Phosphorus CK-MB (CK-2) Albumin 3.4 L Lipase Urine Protein Urine Blood Hyaline Casts Urine Mucus 02/28/18 02/28/18 02/28/18 07:22 16:08 17:21 WBC Hct MCV MCHC Neutrophils # (Manual) Lymphocytes # Monocytes # (Manual) Metamyelocytes # (Man) Myelocytes # (Manual) ABG pH ABG pCO2 76 H* ABG pO2 55 L* ABG HCO3 44 H* ABG Total CO2 46 H ABG O2 Saturation 89.3 L Potassium Chloride Carbon Dioxide BUN Creatinine Glucose POC Glucose (mg/dL) 108 H Plasma Lactic Acid Refugio Phosphorus CK-MB (CK-2) Albumin Lipase Urine Protein 2+ H Urine Blood Small H Hyaline Casts 83 H Urine Mucus Rare H 02/28/18 02/28/18 02/28/18 17:25 17:25 17:30 WBC 11.6 H Hct 56.9 H MCV 100.1 H MCHC 30.4 L Neutrophils # (Manual) 8.10 H Lymphocytes # Monocytes # (Manual) 1.97 H Metamyelocytes # (Man) 0.12 H Myelocytes # (Manual) 0.46 H ABG pH 7.26 L ABG pCO2 99 H* ABG pO2 41 L* ABG HCO3 44 H* ABG Total CO2 47 H ABG O2 Saturation 70.5 L Potassium Chloride 95 L Carbon Dioxide 37 H BUN 22 H Creatinine 0.55 L Glucose 128 H POC Glucose (mg/dL) Plasma Lactic Acid Refugio Phosphorus CK-MB (CK-2) Albumin Lipase Urine Protein Urine Blood Hyaline Casts Urine Mucus 02/28/18 02/28/18 02/28/18 19:50 20:04 23:46 WBC Hct MCV MCHC Neutrophils # (Manual) Lymphocytes # Monocytes # (Manual) Metamyelocytes # (Man) Myelocytes # (Manual) ABG pH ABG pCO2 66 H ABG pO2 >400 H ABG HCO3 41 H* ABG Total CO2 43 H ABG O2 Saturation 100.0 H Potassium Chloride Carbon Dioxide BUN Creatinine Glucose POC Glucose (mg/dL) 140 H Plasma Lactic Acid Refugio 2.6 H* Phosphorus CK-MB (CK-2) Albumin Lipase Urine Protein Urine Blood Hyaline Casts Urine Mucus 02/28/18 03/01/18 03/01/18 23:51 00:14 05:24 WBC Hct MCV MCHC Neutrophils # (Manual) Lymphocytes # Monocytes # (Manual) Metamyelocytes # (Man) Myelocytes # (Manual) ABG pH 7.48 H ABG pCO2 55 H ABG pO2 ABG HCO3 41 H* ABG Total CO2 43 H ABG O2 Saturation 97.9 H Potassium Chloride Carbon Dioxide BUN Creatinine Glucose POC Glucose (mg/dL) 185 H Plasma Lactic Acid Refugio 3.5 H* Phosphorus CK-MB (CK-2) Albumin Lipase Urine Protein Urine Blood Hyaline Casts Urine Mucus 03/01/18 03/01/18 03/01/18 05:27 05:30 05:30 WBC Hct MCV MCHC 30.2 L Neutrophils # (Manual) Lymphocytes # Monocytes # (Manual) Metamyelocytes # (Man) 0.08 H Myelocytes # (Manual) ABG pH ABG pCO2 ABG pO2 ABG HCO3 ABG Total CO2 ABG O2 Saturation Potassium Chloride Carbon Dioxide 38 H BUN 24 H Creatinine 0.62 L Glucose 113 H POC Glucose (mg/dL) 108 H Plasma Lactic Acid Refugio Phosphorus 2.2 L CK-MB (CK-2) Albumin Lipase Urine Protein Urine Blood Hyaline Casts Urine Mucus 03/01/18 09:07 WBC Hct MCV MCHC Neutrophils # (Manual) Lymphocytes # Monocytes # (Manual) Metamyelocytes # (Man) Myelocytes # (Manual) ABG pH ABG pCO2 ABG pO2 ABG HCO3 ABG Total CO2 ABG O2 Saturation Potassium Chloride Carbon Dioxide BUN Creatinine Glucose POC Glucose (mg/dL) Plasma Lactic Acid Refugio 2.1 H* Phosphorus CK-MB (CK-2) Albumin Lipase Urine Protein Urine Blood Hyaline Casts Urine Mucus - Diagnostic Findings Chest x-ray: report reviewed, image reviewed Additional studies: All chest x-rays have been reviewed by Dr. Calderon, EKG has been reviewed, results of the abdominal x-ray reviewed Assessment and Plan Plan: Assessment: #1. Acute on chronic hypoxemic respiratory failure secondary to acute exacerbation of COPD, patient failed BiPAP, and required intubation and placement on mechanical ventilator on 02/28/2018 #2. Chronic hypercapnic respiratory failure related to advanced COPD with chronic hypoxemic respiratory failure patient is on home oxygen at 3 L per nasal cannula #3. Former smoker #4. EtOH abuse, narcotic abuse currently on methadone, methamphetamine abuse, [facility] #5. Several episodes of vomiting prior to admission, may be related to withdrawal symptoms #6. History of left lung cancer back in childhood, with history of pulmonary resection, details are not available to us at this time #7. Lactic acidosis, improving Plan: Continue IV steroids, antibiotics per ID service recommendations, cultures have been collected and are pending at this time, patient is hemodynamically stable, lactic acid is improving, patient was given some IV fluids, cannula with maintenance IV fluid at 75 ML per hour, continue with nebulized bronchodilators , we will add Pulmicort and Perforomist. Chest x-ray has been reviewed with Dr. Calderon, showed volume loss in the left lower lobe, likely related to previous history of pulmonary resection. No acute processes noted. I performed a history & physical examination of the patient and discussed their management with my nurse practitioner, Fabiana Gan. I reviewed the nurse practitioner's note and agree with the documented findings and plan of care. Lung sounds are positive for diffuse wheezes throughout the lung cerda. The findings and the impression was discussed with the patient. I attest to the documentation by the nurse practitioner. Time with Patient: Greater than 30
[2018-03-01 12:03] LABS: Glucose,Whole Blood 120 mg/dL (75-99)
[2018-03-01] MEDS: CLEVIDIPINE BUTYRATE 25 MG in EMPTY BAG 1 BAG IV SCH (12:30)
[2018-03-01] MEDS: LEVOFLOXACIN 500MG-D5W PMX 500 MG in DEXTROSE/WATER 1 100ML.BAG IVPB SCH (12:38)
[2018-03-01] MEDS: SODIUM CHLORIDE 0.9% 1,000 ML IV SCH ×2 (14:03→18:49)
[2018-03-01 18:47] LABS: Glucose,Whole Blood 117 mg/dL (75-99)
[2018-03-01 20:30] LABS: Hemoglobin A1C 6.5 % (4.0-6.0)
--- NOTE | 2018-03-01 21:10 | PN ---
PROGRESS NOTE CHIEF COMPLAINT: Acute respiratory failure. HISTORY OF PRESENT ILLNESS: This gentleman apparently got into difficulty yesterday when the A team was called. He was then transferred to the intensive care unit where he eventually wound up being intubated at his request. At the present time he is stable. Laboratory studies reveal that his BUN is up slightly at 24. The creatinine 0.6. Otherwise labs are normal. PHYSICAL EXAM: Vital signs are normal. Color is good. Hydration is good. Head, ears, eyes, nose, mouth, and throat are normal except for being intubated. Breath sounds are heard bilaterally. Cardiac exam is normal. Abdomen is soft. IMPRESSION: 1. Acute respiratory failure. 2. Exacerbation of chronic obstructive pulmonary disease. PLAN: Continue to follow with intensive Medicine, pulmonology and Infectious Disease. MMODL / IJN: [id number] /
[2018-03-01] MEDS: traZODone HCL 50 MG TAB PO SCH (21:19)
[2018-03-02 00:01] LABS: Glucose,Whole Blood 124 mg/dL (75-99)
[2018-03-02] MEDS: INSULIN ASPART 100 UNIT/ML 1 ML 10 ML VIAL SQ SCH ×5 (00:16→23:24)
[2018-03-02] MEDS: PIPERACILLIN-TAZOBACTAM 3.375 GM in SODIUM CHLORIDE 0.9% 100 ML IVPB SCH ×4 (00:21→23:20)
[2018-03-02] MEDS: HEPARIN SODIUM,PORCINE 5,000 UNIT/ML 1 ML VIAL SQ SCH ×4 (00:21→23:20)
[2018-03-02] MEDS: methylPREDNISolone SOD SUCCI 125 MG/2 ML VIAL IV SCH ×5 (00:21→23:20)
[2018-03-02] MEDS: VANCOMYCIN 1,250 MG in SODIUM CHLORIDE 0.9% 250 ML IVPB SCH (00:21)
--- NOTE | 2018-03-02 01:35 | PN ---
PROGRESS NOTE DATE OF SERVICE: 03/01/2018. REASON FOR FOLLOWUP VISIT: Pneumonia. INTERVAL HISTORY: The patient is currently afebrile. The patient is hemodynamically stable. Not on any pressor support. The patient remains to be intubated. The FiO2 is currently 40%. Tolerating his tube feeds. I put him on Nuedexta. PHYSICAL EXAMINATION: Blood pressure is 113/63 with pulse of 74, temperature 98%, Co2 is 24, 40% FiO2. GENERAL DESCRIPTION: A middle-aged male lying in bed in no distress. RESPIRATORY SYSTEM: Unlabored breathing with decreased breath sounds in the bases. No wheeze. HEART: S1, S2. Regular rate and rhythm. ABDOMEN: Soft, no tenderness. EXTREMITIES: No edema of the feet. LABS: Hemoglobin is 14.4, white count 7.51 with a BUN of 24, creatinine 0.62. Sputum culture is currently pending. DIAGNOSTIC IMPRESSION AND PLAN: Patient with acute respiratory failure which is likely multifactorial with possible component of pneumonia. Patient is currently covered with vancomycin and Zosyn. Will continue while watching his clinical course closely and adjusting antibiotic further. Monitor clinical response and culture. Continue supportive care. MMODL / IJN: [id number] /
[2018-03-02] MEDS: PROPOFOL 1,000 MG in EMPTY BAG 1 BAG IV SCH ×7 (01:54→23:29)
[2018-03-02] MEDS: CLEVIDIPINE BUTYRATE 25 MG in EMPTY BAG 1 BAG IV SCH (03:15)
[2018-03-02] MEDS: IPRATROPIUM-ALBUTEROL 3 ML NEB INHALATION PRN (03:29)
[2018-03-02 04:59] LABS: Basophils # (A) 0.1 k/uL (0-0.2); Basophils % (A) 1 %; Eosinophils # (A) 0.1 k/uL (0-0.7); Eosinophils % (A) 1 %; HCT 42.8 % (39.0-53.0); HGB 13.3 gm/dL (13.0-17.5); Hypochromasia Moderate; Lymphocytes # (A) 0.5 k/uL (1.0-4.8); Lymphocytes % (A) 7 %; MCH 30.8 pg (25.0-35.0); MCHC 31.1 g/dL (31.0-37.0); MCV 98.9 fL (80.0-100.0); Monocytes # (A) 0.4 k/uL (0-1.0); Monocytes % (A) 6 %; Neutrophils # (A) 5.7 k/uL (1.3-7.7); Neutrophils % (A) 84 %; Platelet Count 215 k/uL (150-450); RBC 4.33 m/uL (4.30-5.90); RDW 13.7 % (11.5-15.5); WBC 6.8 k/uL (3.8-10.6)
[2018-03-02 05:02] LABS: ABG Base Excess 12.1 mmol/L; ABG HCO3 37 mmol/L (21-25); ABG Oxygen Saturation 98.6 % (94-97); ABG PCO2 61 mmHg (35-45); ABG PH 7.39 (7.35-7.45); ABG PO2 104 mmHg (83-108); ABG TCO2 39 mmol/L (19-24)
[2018-03-02 06:13] LABS: Anion Gap 4 mmol/L; Blood Urea Nitrogen 36 mg/dL (9-20); Calcium 8.5 mg/dL (8.4-10.2); Carbon Dioxide 34 mmol/L (22-30); Chloride 102 mmol/L (98-107); Glucose 180 mg/dL (74-99); Magnesium 2.2 mg/dL (1.6-2.3); Potassium 4.6 mmol/L (3.5-5.1); Sodium 140 mmol/L (137-145)
[2018-03-02 06:35] LABS: Glucose,Whole Blood 146 mg/dL (75-99)
[2018-03-02] MEDS ORDERED: VANCOMYCIN TROUGH DUE 1 EACH MISC MISCELLANE ONE (07:00)
--- NOTE | 2018-03-02 07:20 | PCN ---
PROCEDURE NOTE ARTERIAL LINE PLACEMENT: Indications: Hemodynamic monitoring. A time-out was completed verifying correct patient, procedure, site, positioning, and implant(s) or special equipment if applicable. Jae's test was performed to ensure adequate perfusion. The patient's left wrist was prepped and draped in sterile fashion. 1% Lidocaine was used to anesthetize the area. An 18G Arrow arterial line was introduced into the radial artery. The catheter was threaded over the guide wire and the needle was removed with appropriate pulsatile blood return. Blood loss was minimal. The catheter was then sutured in place to the skin and a sterile dressing applied. Perfusion to the extremity distal to the point of catheter insertion was checked and found to be adequate. Blood return was obtained, line was flushed, line was sutured in place. The patient tolerated the procedure well and there were no complications. MMLENNIE / JACOBYN: [id number] /
[2018-03-02] MEDS: IPRATROPIUM-ALBUTEROL 3 ML NEB INHALATION SCH ×4 (07:38→19:18)
[2018-03-02] MEDS: FORMOTEROL FUMARATE 20 MCG/2 ML NEBU INHALATION SCH ×2 (07:38→19:18)
[2018-03-02] MEDS: BUDESONIDE 1 MG/2 ML NEBU INHALATION SCH ×2 (07:38→19:18)
--- NOTE | 2018-03-02 07:59 | XR ---
EXAMINATION TYPE: XR chest 1V portable DATE OF EXAM: 03/02/2018 COMPARISON: Prior chest x-ray 03/01/2018 HISTORY: Intubated TECHNIQUE: Single frontal view of the chest is obtained. FINDINGS: Endotracheal tube is overlying appropriate position. NG tube shows the distal tip near the level of the cavoatrial junction. Patient is rotated and there are overlying cardiac leads. Postop c hange noted in the left hemithorax, there is persistent volume loss and bandlike areas of increased a ttenuation may represent atelectasis or scar. No evident pneumothorax or pleural effusion. Heart size is enlarged and stable, may be accentuated by technique, rotation. IMPRESSION: Findings are similar to prior exam. NG tube shows the side port within the esophagus as noted on prior exam. Postop changes and cardiomegaly.
[2018-03-02] MEDS: LISINOPRIL 20 MG TAB PO SCH (09:35)
[2018-03-02] MEDS: CHLORHEXIDINE GLUCONATE 15 ML CUP MUCOUS MEM SCH ×2 (09:35→20:31)
[2018-03-02] MEDS: METHADONE 10 MG TAB PO SCH (09:36)
[2018-03-02] MEDS: PANTOPRAZOLE 40 MG/10 ML VIAL IV SCH (09:37)
[2018-03-02] MEDS: LEVOFLOXACIN 500MG-D5W PMX 500 MG in DEXTROSE/WATER 1 100ML.BAG IVPB SCH (09:37)
--- NOTE | 2018-03-02 09:45 | P.PN ---
Subjective Progress Note Date: 03/02/18 Principal diagnosis: Acute exacerbation of chronic obstructive pulmonary disease requiring intubation mechanical ventilatory support, EtOH withdrawal. This is a 52-year-old white male patient with past medical history for advanced COPD, with chronic hypoxic respiratory failure, EtOH abuse, past history of narcotic and methamphetamine abuse, currently on methadone, former smoker, lung cancer with the left lobectomy in childhood, and the details are not available to us at this time, was brought to the emergency department on per EMS, from the [facility] with complaints of increasing shortness of breath, vomiting. Recent had multiple episodes of vomiting over the 2 days prior to admission. No fever or chills, no chest pain , no weakness, dizziness, no urinary symptoms, no headaches, no abdominal pain. Admission chest x-ray showed elevated left hemidiaphragm related to previous pulmonary resection, evidence of heart failure, was questioning of the lung markings, slight blunting of the right costophrenic angle. Abdominal x-ray was negative. CBC was within normal limits on admission, chemistry showed sodium of 139, potassium is 5.8, chloride 93, CO2 is 39, BUN was 29 and creatinine was 0.8, LFTs were within normal limits, proBNP was elevated at 3750, troponin was 0.018, lipase was 20, and amylase was 42, urinalysis was negative. Influenza was not detected. Patient was started on breathing treatments, empiric antibiotics, he was admitted to regular medical surgical floor. On 02/28/2018 epidural response was called to the patient's room with concerns of worsening shortness of breath, blood gas was obtained, and showed pO2 of greater than 400 , pCO2 of 66, and pH of 7.40. His was done on FiO2 of 100%. Patient was quite tachypneic, and respiratory distress. His pulse ox was 76% on nasal cannula at 6 L. Patient was placed on BiPAP support, but shortly after with the rapid response team was called back to the room, is a patient was intolerant of BiPAP , he was severely anxious, he was requesting to be intubated, apparently patient had been intubated before. repeat chest was obtained, showed no acute lung disease, no change, no heart failure. Follow-up chest x-ray same day showed similar findings. In view of severe respiratory distress related to acute hypoxemic respiratory failure patient was intubated and placed on mechanical ventilator. Morning was seen the patient in the intensive care unit , he is sedated, he is on mechanical ventilator, current vent settings are assist-control mode of 22 breaths per minute, tidal volume of 450, FiO2 40% and PEEP of 5, morning blood gases were reviewed, and showed pO2 of 84, pCO2 55, and pH is 7.48. This morning's chest x-ray was reviewed with Dr. Calderon, and showed overall stable findings, mild cardiomegaly and small bilateral pleural effusions, left basilar atelectasis. Maintenance IV fluid is 0.9 normal saline at a rate of 75 ML per hour, Diprivan is at 65 mics per kilo per minute. ID service is following, Gram stain of the sputum showed many gram-negative cocci bacilli, and rare gram-positive cocci. Final cultures in progress. Afebrile, hemodynamically stable. Plasma lactic acid was elevated at 3.5, this morning is down to 2.1, patient was given IV fluids. Antibiotic coverage with Levaquin and vancomycin. The patient is seen again today 03/02/2018 in follow-up in the intensive care unit. He remains intubated on mechanical ventilator settings of assist control of 18, tidal volume 400, FiO2 40% and a PEEP of 5. Morning blood gases reveal a pO2 of 104, pCO2 of 61 and a pH of 7.39. His airway resistance is still high at 15.5. He is sedated on to prevent at 70 mcg/kg/m. Cleviprex at 1 mg per hour. 0.9 normal saline at 75 ML's per hour. He has Nam HP at 20 ML's per hour with a goal of 35. Microbiology is negative thus far. White count 6.8. Hemoglobin 13.3. Bicarb 34. Creatinine 0.63. He did have some issues with bradycardia sinus bradycardia in the 40s however currently in the 50s and did not require initiation of dopamine. He remains on antibiotics in form of vancomycin and Zosyn. Chest x-ray continues to show postop changes in the left hemithorax with persistent 5 loss and bandlike area of increased attenuation. Stable compared to previous. Objective - Vital Signs Vital signs: Vital Signs Temp 98.6 F 03/02/18 08:00 Pulse 54 L 03/02/18 08:30 Resp 18 03/02/18 08:30 BP 117/81 03/02/18 07:00 Pulse Ox 95 03/02/18 08:30 Intake & Output 03/01/18 03/02/18 03/02/18 18:59 06:59 18:59 Intake Total 1620.12 1591.05 Output Total 850 520 Balance 770.12 1071.05 Weight 75 kg 75.9 kg Intake: IV 840 1361 Normal Saline Pressure 15 36 Bag Piperacillin-Tazobactam 3 100 .375 gm In Sodium Chloride 0.9% 100 ml @ 25 mls/hr IVPB Q8HR [facility] Rx# :[id number] Sodium Chloride 0.9% 1, 825 975 000 ml @ 75 mls/hr IV . [id number] [facility] Rx#:[id number] Vancomycin 1,250 mg In 250 Sodium Chloride 0.9% 250 ml @ 125 mls/hr IVPB Q8H [facility] Rx#:[id number] Intake, IV Titration 780.12 230.05 Amount Clevidipine Butyrate 25 30.05 mg In Empty Bag 1 bag @ 1 MG/HR 2 mls/hr IV .Q24H [facility] Rx#:[id number] Levofloxacin 500Mg-D5w 100 Pmx 500 mg In Dextrose/ Water 1 100ml.bag @ 100 mls/hr IVPB Q24H [facility] Rx#: [id number] Piperacillin-Tazobactam 3 175 .375 gm In Sodium Chloride 0.9% 100 ml @ 25 mls/hr IVPB Q8HR [facility] Rx# :[id number] Propofol 1,000 mg In 255.12 200 Empty Bag 1 bag @ Titrate IV .Q0M [facility] Rx#: [id number] Vancomycin 1,250 mg In 250 Sodium Chloride 0.9% 250 ml @ 125 mls/hr IVPB Q8H [facility] Rx#:[id number] Output: Urine 850 520 Other: Voiding Method Indwelling Catheter Indwelling Catheter Indwelling Catheter ABP, PAP, CO, CI - Last Documented Arterial Blood Pressure 153/81 - Exam GENERAL EXAM: Sedated, 52-year-old white male, intubated on mechanical ventilator comfortable in no apparent distress. HEAD: Normocephalic/atraumatic. EYES: Normal reaction of pupils, equal size. Conjunctiva pink, sclera white. NOSE: Clear with pink turbinates. THROAT: No erythema or exudates. NECK: No masses, no JVD, no thyroid enlargement, no adenopathy. CHEST: No chest wall deformity. Symmetrical expansion. LUNGS: Equal air entry with a few end expiratory wheezes scattered rhonchi. CVS: Regular rate and rhythm, normal S1 and S2, no gallops, no murmurs, no rubs ABDOMEN: Soft, nontender. No hepatosplenomegaly, normal bowel sounds, no guarding or rigidity. EXTREMITIES: No clubbing, no edema, no cyanosis, 2+ pulses and upper and lower extremities. MUSCULOSKELETAL: Muscle strength and tone normal. SPINE: No scoliosis or deformity SKIN: No rashes CENTRAL NERVOUS SYSTEM: Sedated. Tone is normal in all 4 extremities. - Labs CBC & Chem 7: 03/02/18 04:45 03/02/18 05:50 Labs: Abnormal Lab Results - Last 24 Hours (Table) 03/01/18 03/01/18 03/01/18 Range/Units 05:30 09:07 11:50 Lymphocytes # (1.0-4.8) k/uL ABG pCO2 (35-45) mmHg ABG HCO3 (21-25) mmol/L ABG Total CO2 (19-24) mmol/L ABG O2 Saturation (94-97) % Carbon Dioxide (22-30) mmol/L BUN (9-20) mg/dL Creatinine (0.66-1.25) mg/dL Glucose (74-99) mg/dL POC Glucose (mg/dL) 120 H (75-99) mg/dL Hemoglobin A1c 6.5 H (4.0-6.0) % Plasma Lactic Acid Refugio 2.1 H* (0.7-2.0) mmol/L 03/01/18 03/01/18 03/02/18 Range/Units 18:34 23:49 04:45 Lymphocytes # 0.5 L (1.0-4.8) k/uL ABG pCO2 (35-45) mmHg ABG HCO3 (21-25) mmol/L ABG Total CO2 (19-24) mmol/L ABG O2 Saturation (94-97) % Carbon Dioxide (22-30) mmol/L BUN (9-20) mg/dL Creatinine (0.66-1.25) mg/dL Glucose (74-99) mg/dL POC Glucose (mg/dL) 117 H 124 H (75-99) mg/dL Hemoglobin A1c (4.0-6.0) % Plasma Lactic Acid Refugio (0.7-2.0) mmol/L 03/02/18 03/02/18 03/02/18 Range/Units 04:56 05:50 06:23 Lymphocytes # (1.0-4.8) k/uL ABG pCO2 61 H (35-45) mmHg ABG HCO3 37 H (21-25) mmol/L ABG Total CO2 39 H (19-24) mmol/L ABG O2 Saturation 98.6 H (94-97) % Carbon Dioxide 34 H (22-30) mmol/L BUN 36 H (9-20) mg/dL Creatinine 0.63 L (0.66-1.25) mg/dL Glucose 180 H (74-99) mg/dL POC Glucose (mg/dL) 146 H (75-99) mg/dL Hemoglobin A1c (4.0-6.0) % Plasma Lactic Acid Refugio (0.7-2.0) mmol/L Microbiology - Last 24 Hours (Table) 02/28/18 23:51 Blood Culture - Preliminary Blood No Growth after 24 hours 03/01/18 13:53 Gram Stain - Preliminary Sputum Sputum Culture - Preliminary Assessment and Plan Assessment: Assessment: #1. Acute on chronic hypoxemic respiratory failure secondary to acute exacerbation of COPD, patient failed BiPAP, and required intubation and placement on mechanical ventilator on 02/28/2018 #2. Chronic hypercapnic respiratory failure related to advanced COPD with chronic hypoxemic respiratory failure patient is on home oxygen at 3 L per nasal cannula #3. Former smoker #4. EtOH abuse, narcotic abuse currently on methadone, methamphetamine abuse, [facility] #5. Several episodes of vomiting prior to admission, may be related to withdrawal symptoms #6. History of left lung cancer back in childhood, with history of pulmonary resection, details are not available to us at this time #7. Lactic acidosis, improving Plan: The patient was seen and evaluated by Dr. Calderon. Chest x-ray, ABGs and labs were reviewed. We'll continue with the current treatment plan for now. He remains on DuoNeb inhalations every 4 hours, Pulmicort and Perforomist every 12 hours, IV Solu-Medrol. Antibiotics in the form of vancomycin and Zosyn. Cultures negative thus far. We will continue to follow and make further recommendations based on his clinical status. We'll continue daily interruption of sedation and weaning parameters. Critical care time 38 minutes. I, the cosigning physician, performed a history & physical examination of the patient. Lungs sounds with few scattered rhonchi, end expiratory wheeze bilaterally. Maintaining good O2 saturations in the 90s on 40% FiO2 on mechanical ventilator. I discussed the assessment and plan of care with my nurse practitioner, Jolie Lee. I attest to the above note as dictated by her. Time with Patient: Greater than 30
[2018-03-02] MEDS: SODIUM CHLORIDE 0.9% 1,000 ML IV SCH (11:43)
[2018-03-02] MEDS ORDERED: VANCOMYCIN 1,250 MG in SODIUM CHLORIDE 0.9% 250 ML IVPB SCH (12:00)
[2018-03-02 12:16] LABS: Glucose,Whole Blood 143 mg/dL (75-99)
[2018-03-02 18:11] LABS: Glucose,Whole Blood 144 mg/dL (75-99)
[2018-03-02] MEDS: traZODone HCL 50 MG TAB PO SCH (21:50)
[2018-03-02 23:34] LABS: Glucose,Whole Blood 162 mg/dL (75-99)
[2018-03-03] MEDS: IPRATROPIUM-ALBUTEROL 3 ML NEB INHALATION SCH ×6 (00:21→19:38)
[2018-03-03] MEDS: PROPOFOL 1,000 MG in EMPTY BAG 1 BAG IV SCH ×7 (01:20→22:24)
[2018-03-03 04:33] LABS: ABG Base Excess 1.2 mmol/L; ABG HCO3 27 mmol/L (21-25); ABG Oxygen Saturation 96.2 % (94-97); ABG PCO2 53 mmHg (35-45); ABG PH 7.32 (7.35-7.45); ABG PO2 85 mmHg (83-108); ABG TCO2 29 mmol/L (19-24)
[2018-03-03] MEDS: DOPamine DRIP 800 MG in DEXTROSE/WATER 1 500ML.BAG IV SCH ×2 (04:35→04:36)
[2018-03-03] MEDS: SODIUM CHLORIDE 0.9% 1,000 ML IV SCH ×2 (04:36→16:40)
[2018-03-03 05:09] LABS: Anion Gap 2 mmol/L; Blood Urea Nitrogen 43 mg/dL (9-20); Calcium 8.3 mg/dL (8.4-10.2); Carbon Dioxide 34 mmol/L (22-30); Chloride 104 mmol/L (98-107); Glucose 140 mg/dL (74-99); Magnesium 2.1 mg/dL (1.6-2.3); Phosphorus 4.3 mg/dL (2.5-4.5); Potassium 4.9 mmol/L (3.5-5.1); Sodium 140 mmol/L (137-145)
[2018-03-03 05:44] LABS: HGB 13.6 gm/dL (13.0-17.5); Hypochromasia Moderate; MCH 28.7 pg (25.0-35.0); MCV 99.2 fL (80.0-100.0); Platelet Count 279 k/uL (150-450); RBC 4.73 m/uL (4.30-5.90); RDW 13.9 % (11.5-15.5); WBC 12.2 k/uL (3.8-10.6)
[2018-03-03] MEDS: methylPREDNISolone SOD SUCCI 125 MG/2 ML VIAL IV SCH ×4 (05:54→23:39)
[2018-03-03] MEDS: INSULIN ASPART 100 UNIT/ML 1 ML 10 ML VIAL SQ SCH ×4 (05:57→23:38)
[2018-03-03 06:07] LABS: Glucose,Whole Blood 161 mg/dL (75-99)
--- NOTE | 2018-03-03 06:46 | XR ---
EXAMINATION TYPE: XR chest 1V portable DATE OF EXAM: 03/03/2018 CLINICAL HISTORY: Difficulty breathing progress study. TECHNIQUE: Single AP portable semiupright view of the chest is obtained. COMPARISON: Chest x-ray from one day earlier and older studies. FINDINGS: An endotracheal tube and orogastric tube are redemonstrated. Orogastric tube has been adva nced in the interval now coiled in stomach. Sternal wires and mediastinal clips extending along left heart border are redemonstrated. There is pe rsistent small to tiny right pleural effusion. Cardiac silhouette size is stable and mildly enlarged with persistent elevated left hemidiaphragm and small left pleural effusion with associated left basi lar atelectasis and/or infiltrate. Upper lungs remain clear without pneumothorax. Osseous structures are intact. IMPRESSION: Interval advancement of orogastric tube. There is persistent mild cardiomegaly with eleva esthela left hemidiaphragm and small left greater than right pleural effusions with associated left basil ar atelectasis and/or infiltrate all redemonstrated.
--- NOTE | 2018-03-03 07:01 | PN ---
PROGRESS NOTE DATE OF SERVICE: 03/02/2018 REASON FOR FOLLOWUP: Pneumonia. INTERVAL HISTORY: The patient is currently afebrile. He is hemodynamically stable. The patient remains to be intubated on the vent. Still has significant amount of purulent secretions of the ET per the RN. Has been tolerating his tube feeds. No diarrhea. PHYSICAL EXAMINATION: On examination, blood pressure 125/84, pulse of 58, temperature 98.5. He is 94% on 40% FiO2. General description is a middle-aged male lying in bed in no distress. RESPIRATORY SYSTEM: Unlabored breathing with decreased breath sounds at the bases. No wheeze. HEART: S1, S2. Regular rate and rhythm. ABDOMEN: Soft, no tenderness. LABS: BUN of 36, creatinine 0.63. Sputum currently showing Haemophilus influenzae. DIAGNOSTIC IMPRESSION AND PLAN: Patient with acute respiratory failure which is likely multifactorial, possible component of pneumonia. Sputum is currently showing Haemophilus influenzae. Patient's Zosyn will be continued, discontinue the vancomycin and await for sensitivity to finalize. Continue with supportive care. MMODL / IJN: [id number] /
[2018-03-03] MEDS: BUDESONIDE 1 MG/2 ML NEBU INHALATION SCH ×2 (07:30→19:38)
[2018-03-03] MEDS: FORMOTEROL FUMARATE 20 MCG/2 ML NEBU INHALATION SCH ×2 (07:30→19:38)
[2018-03-03] MEDS: PIPERACILLIN-TAZOBACTAM 3.375 GM in SODIUM CHLORIDE 0.9% 100 ML IVPB SCH ×3 (07:54→23:38)
[2018-03-03] MEDS: HEPARIN SODIUM,PORCINE 5,000 UNIT/ML 1 ML VIAL SQ SCH ×3 (07:54→23:38)
[2018-03-03] MEDS: LISINOPRIL 20 MG TAB PO SCH (07:55)
[2018-03-03] MEDS: METHADONE 10 MG TAB PO SCH (07:55)
[2018-03-03] MEDS: PANTOPRAZOLE 40 MG/10 ML VIAL IV SCH (08:04)
[2018-03-03] MEDS: CHLORHEXIDINE GLUCONATE 15 ML CUP MUCOUS MEM SCH ×2 (08:04→20:34)
[2018-03-03 08:10] LABS: Band Neutrophils % 4 %; Lymphocytes # (M) 1.83 k/uL (1.0-4.8); Metamyelocytes # (M) 0.37 k/uL (0); Metamyelocytes % 3 %; Monocytes # (M) 0.98 k/uL (0-1.0); Myelocytes # (M) 0.12 k/uL (0); Myelocytes % 1 %; Neutrophils % (M) 70 %; Nucleated Red Blood Cells 0 /100 WBC (0-0); Total Cells Counted 200
[2018-03-03 08:11] LABS: Toxic Granulation Present
--- NOTE | 2018-03-03 09:18 | P.PN ---
Subjective Progress Note Date: 03/03/18 Principal diagnosis: Acute exacerbation of chronic obstructive pulmonary disease requiring intubation, and mechanical ventilatory support, EtOH withdrawal This is a 52-year-old white male patient with past medical history for advanced COPD, with chronic hypoxic respiratory failure, EtOH abuse, past history of narcotic and methamphetamine abuse, currently on methadone, former smoker, lung cancer with the left lobectomy in childhood, and the details are not available to us at this time, was brought to the emergency department on 02/25/2018 per EMS, [facility] with complaints of increasing shortness of breath, vomiting. Recent had multiple episodes of vomiting over the 2 days prior to admission. No fever or chills, no chest pain, no weakness, dizziness, no urinary symptoms, no headaches, no abdominal pain. Admission chest x-ray showed elevated left hemidiaphragm related to previous pulmonary resection, evidence of heart failure, was questioning of the lung markings, slight blunting of the right costophrenic angle. Abdominal x-ray was negative. CBC was within normal limits on admission, chemistry showed sodium of 139, potassium is 5.8, chloride 93, CO2 is 39, BUN was 29 and creatinine was 0.8, LFTs were within normal limits, proBNP was elevated at 3750, troponin was 0.018 , lipase was 20, and amylase was 42, urinalysis was negative. Influenza was not detected. Patient was started on breathing treatments, empiric antibiotics , he was admitted to regular medical surgical floor. On 02/28/2018 epidural response was called to the patient's room with concerns of worsening shortness of breath, blood gas was obtained, and showed pO2 of greater than 400, pCO2 of 66, and pH of 7.40. His was done on FiO2 of 100%. Patient was quite tachypneic , and respiratory distress. His pulse ox was 76% on nasal cannula at 6 L. Patient was placed on BiPAP support, but shortly after with the rapid response team was called back to the room, is a patient was intolerant of BiPAP, he was severely anxious, he was requesting to be intubated, apparently patient had been intubated before. repeat chest was obtained, showed no acute lung disease, no change, no heart failure. Follow-up chest x-ray same day showed similar findings. In view of severe respiratory distress related to acute hypoxemic respiratory failure patient was intubated and placed on mechanical ventilator. Morning was seen the patient in the intensive care unit, he is sedated, he is on mechanical ventilator, current vent settings are assist-control mode of 22 breaths per minute, tidal volume of 450, FiO2 40% and PEEP of 5, morning blood gases were reviewed, and showed pO2 of 84, pCO2 55, and pH is 7.48. This morning's chest x-ray was reviewed with Dr. Calderon, and showed overall stable findings, mild cardiomegaly and small bilateral pleural effusions, left basilar atelectasis. Maintenance IV fluid is 0.9 normal saline at a rate of 75 ML per hour, Diprivan is at 65 mics per kilo per minute. ID service is following, Gram stain of the sputum showed many gram-negative cocci bacilli, and rare gram- positive cocci. Final cultures in progress. Afebrile, hemodynamically stable. Plasma lactic acid was elevated at 3.5, this morning is down to 2.1, patient was given IV fluids. Antibiotic coverage with Levaquin and vancomycin. The patient is seen again today 03/02/2018 in follow-up in the intensive care unit. He remains intubated on mechanical ventilator settings of assist control of 18, tidal volume 400, FiO2 40% and a PEEP of 5. Morning blood gases reveal a pO2 of 104, pCO2 of 61 and a pH of 7.39. His airway resistance is still high at 15.5. He is sedated on to prevent at 70 mcg/kg/m. Cleviprex at 1 mg per hour. 0.9 normal saline at 75 ML's per hour. He has Nam HP at 20 ML's per hour with a goal of 35. Microbiology is negative thus far. White count 6.8. Hemoglobin 13.3. Bicarb 34. Creatinine 0.63. He did have some issues with bradycardia sinus bradycardia in the 40s however currently in the 50s and did not require initiation of dopamine. He remains on antibiotics in form of vancomycin and Zosyn. Chest x-ray continues to show postop changes in the left hemithorax with persistent 5 loss and bandlike area of increased attenuation. Stable compared to previous. On 03/03/2018 patient seen in follow-up in the intensive care unit, he remains intubated, on mechanical ventilator, currently on assist-control mode with a rate of 18, tidal volume of 400, FiO2 40% and PEEP of 5. This morning his blood gases showed pO2 of 85, pCO2 53, and pH of 7.32. Maintenance IV fluids include 0.9 at a rate of 75 ML per hour, to prevent at 70 mics per kilo per minute. No other drips, nutritional support in the form of vital high protein at a rate of 35 with a goal of 35. Today's chest x-ray was reviewed by Dr. Calderon showed persistent mild cardiomegaly with elevated left hemidiaphragm and small left greater than right pleural effusions with associated left basilar atelectasis and/or infiltrate. Patient has been afebrile, hemodynamically stable. Airway pressure was 37, and plateau pressure was 19, calculated airway resistance was 15.5, which is 3 times the normal limit. Lung sounds positive for diffuse wheezes, and there is still copious amount of hernandez-colored thick secretions being suctioned from the endotracheal tube. Urine culture was positive for Haemophilus influenza culture was negative. Antibiotic coverage includes Levaquin and Zosyn. ID service is following, patient is on nebulized bronchodilators, and IV steroids. History patient had a sedation holiday, and became extremely agitated, had to be re-sedated. Early this morning patient was having some issues with bradycardia, currently sinus rhythm with a rate of 61 BPM, dopamine was ordered however patient did not require the drip after all. Objective - Vital Signs Vital signs: Vital Signs Temp 98.4 F 03/03/18 08:00 Pulse 56 L 03/03/18 08:12 Resp 18 03/03/18 08:00 BP 141/98 03/03/18 08:00 Pulse Ox 96 03/03/18 08:00 Intake & Output 03/02/18 03/03/18 03/03/18 18:59 06:59 18:59 Intake Total 2200.937 1903.308 392.043 Output Total 555 715 215 Balance 6618.785 7660.308 177.043 Weight 75.9 kg 79.6 kg Intake: IV 1383 961 181 Normal Saline Pressure 33 36 6 Bag Piperacillin-Tazobactam 3 275 25 25 .375 gm In Sodium Chloride 0.9% 100 ml @ 25 mls/hr IVPB Q8HR [facility] Rx# :[id number] Sodium Chloride 0.9% 1, 825 900 150 000 ml @ 75 mls/hr IV . [id number] [facility] Rx#:[id number] Vancomycin 1,250 mg In 250 Sodium Chloride 0.9% 250 ml @ 125 mls/hr IVPB Q8H [facility] Rx#:[id number] Intake, IV Titration 372.937 257.308 111.043 Amount Clevidipine Butyrate 25 14.500 3.8 mg In Empty Bag 1 bag @ 1 MG/HR 2 mls/hr IV .Q24H [facility] Rx#:[id number] Propofol 1,000 mg In 358.437 253.508 111.043 Empty Bag 1 bag @ Titrate IV .Q0M [facility] Rx#: [id number] Tube Feeding 355 595 70 Other 90 90 30 Output: Urine 555 715 215 Other: Voiding Method Indwelling Catheter Indwelling Catheter Indwelling Catheter ABP, PAP, CO, CI - Last Documented Arterial Blood Pressure 154/88 - Exam GENERAL EXAM: Sedated, 52-year-old white male, intubated on mechanical ventilator comfortable in no apparent distress. HEAD: Normocephalic/atraumatic. EYES: Normal reaction of pupils, equal size. Conjunctiva pink, sclera white. NOSE: Clear with pink turbinates. THROAT: No erythema or exudates. NECK: No masses, no JVD, no thyroid enlargement, no adenopathy. CHEST: No chest wall deformity. Symmetrical expansion. LUNGS: Equal air entry with a few end expiratory wheezes scattered rhonchi. CVS: Regular rate and rhythm, normal S1 and S2, no gallops, no murmurs, no rubs ABDOMEN: Soft, nontender. No hepatosplenomegaly, normal bowel sounds, no guarding or rigidity. EXTREMITIES: No clubbing, no edema, no cyanosis, 2+ pulses and upper and lower extremities. MUSCULOSKELETAL: Muscle strength and tone normal. SPINE: No scoliosis or deformity SKIN: No rashes CENTRAL NERVOUS SYSTEM: Sedated. Tone is normal in all 4 extremities. - Labs CBC & Chem 7: 03/03/18 04:38 03/03/18 04:38 Labs: Abnormal Lab Results - Last 24 Hours (Table) 03/02/18 03/02/18 03/02/18 Range/Units 12:04 17:59 23:23 WBC (3.8-10.6) k/uL MCHC (31.0-37.0) g/dL Neutrophils # (Manual) (1.3-7.7) k/uL Metamyelocytes # (Man) (0) k/uL Myelocytes # (Manual) (0) k/uL ABG pH (7.35-7.45) ABG pCO2 (35-45) mmHg ABG HCO3 (21-25) mmol/L ABG Total CO2 (19-24) mmol/L Carbon Dioxide (22-30) mmol/L BUN (9-20) mg/dL Glucose (74-99) mg/dL POC Glucose (mg/dL) 143 H 144 H 162 H (75-99) mg/dL Calcium (8.4-10.2) mg/dL 03/03/18 03/03/18 03/03/18 Range/Units 04:28 04:38 04:38 WBC 12.2 H (3.8-10.6) k/uL MCHC 29.0 L (31.0-37.0) g/dL Neutrophils # (Manual) 9.00 H (1.3-7.7) k/uL Metamyelocytes # (Man) 0.37 H (0) k/uL Myelocytes # (Manual) 0.12 H (0) k/uL ABG pH 7.32 L (7.35-7.45) ABG pCO2 53 H (35-45) mmHg ABG HCO3 27 H (21-25) mmol/L ABG Total CO2 29 H (19-24) mmol/L Carbon Dioxide 34 H (22-30) mmol/L BUN 43 H (9-20) mg/dL Glucose 140 H (74-99) mg/dL POC Glucose (mg/dL) (75-99) mg/dL Calcium 8.3 L (8.4-10.2) mg/dL 03/03/18 Range/Units 05:56 WBC (3.8-10.6) k/uL MCHC (31.0-37.0) g/dL Neutrophils # (Manual) (1.3-7.7) k/uL Metamyelocytes # (Man) (0) k/uL Myelocytes # (Manual) (0) k/uL ABG pH (7.35-7.45) ABG pCO2 (35-45) mmHg ABG HCO3 (21-25) mmol/L ABG Total CO2 (19-24) mmol/L Carbon Dioxide (22-30) mmol/L BUN (9-20) mg/dL Glucose (74-99) mg/dL POC Glucose (mg/dL) 161 H (75-99) mg/dL Calcium (8.4-10.2) mg/dL Microbiology - Last 24 Hours (Table) 02/28/18 23:51 Blood Culture - Preliminary Blood No Growth after 48 hours 02/28/18 15:44 Gram Stain - Final Sputum Sputum Culture - Final Haemophilus influenzae Assessment and Plan Plan: Assessment: #1. Acute on chronic hypoxemic respiratory failure secondary to acute exacerbation of COPD, and possible Haemophilus influenza tracheobronchitis or Haemophilus influenza pneumonia in the left lower lobe. Required intubation and placement on mechanical ventilator on 02/28/2018. #2. Chronic hypercapnic respiratory failure related to advanced COPD with chronic hypoxemic respiratory failure patient is on home oxygen at 3 L per nasal cannula #3. Former smoker #4. EtOH abuse, narcotic abuse currently on methadone, methamphetamine abuse, patient is from [facility] facility #5. Several episodes of vomiting prior to admission, may be related to withdrawal symptoms #6. History of left lung cancer back in childhood reportedly related to history of Hodgkin's lymphoma according to the mother, with history of pulmonary resection #7. Lactic acidosis, improving Plan: We'll give the patient sedation holiday today. Patient is calm and cooperative we'll proceed with continues breathing trials. Today's chest x-ray was reviewed by Dr. Calderon, the possibility of Haemophilus influenza pneumonia in the left lower lobe cannot completely be excluded, ID service is following, patient is on combination of Levaquin and Zosyn. Remains bronchospastic on today's exam, copious amounts of thick hernandez colored secretions. Blood gases were reviewed, chest x-ray was reviewed by Dr. Calderon, today's chest x-ray shows persistent cardiomegaly with elevated left hemidiaphragm and left greater than right pleural effusions with left basilar atelectasis and/or infiltrate. I performed a history & physical examination of the patient and discussed their management with my nurse practitioner, Fabiana Gan. I reviewed the nurse practitioner's note and agree with the documented findings and plan of care. Lung sounds are positive for diffuse wheezes throughout the lung cerda. The findings and the impression was discussed with the patient. I attest to the documentation by the nurse practitioner. Time with Patient: Greater than 30
[2018-03-03] MEDS: LEVOFLOXACIN 500MG-D5W PMX 500 MG in DEXTROSE/WATER 1 100ML.BAG IVPB SCH (10:04)
[2018-03-03 12:13] LABS: Glucose,Whole Blood 139 mg/dL (75-99)
[2018-03-03] MEDS: CLEVIDIPINE BUTYRATE 25 MG in EMPTY BAG 1 BAG IV SCH (13:36)
--- NOTE | 2018-03-03 17:37 | PN ---
PROGRESS NOTE DATE OF SERVICE: 03/02/2018. CHIEF COMPLAINT: Pneumonitis, COPD and respiratory failure. HISTORY OF PRESENT ILLNESS: This gentleman remains on a ventilator. At the present time, his vital signs are normal. EXAM: CHEST: Clear. Cardiac exam is normal. IMPRESSION: 1. Pneumonitis. 2. Respiratory failure. 3. Exacerbation of chronic obstructive pulmonary disease. PLAN: No change in program from my perspective. MMODL / IJN: [id number] /
--- NOTE | 2018-03-03 18:10 | PN ---
PROGRESS NOTE DATE OF SERVICE: 03/03/2018 CHIEF COMPLAINT: Respiratory failure, pneumonitis, COPD. HISTORY OF PRESENT ILLNESS: This gentleman's condition is fairly stable, but he is still on the ventilator. PHYSICAL EXAMINATION: Breath sounds are heard on both sides. His vital signs are normal. Cardiac exam is normal. IMPRESSION: 1. Respiratory failure. 2. Pneumonitis. 3. Exacerbation of chronic obstructive pulmonary disease. PLAN: Continue on ventilator support and follow with Pulmonology. MMODL / IJN: [id number] /
[2018-03-03 18:20] LABS: Glucose,Whole Blood 139 mg/dL (75-99)
[2018-03-03] MEDS: traZODone HCL 50 MG TAB PO SCH (20:35)
--- NOTE | 2018-03-03 22:27 | PN ---
PROGRESS NOTE DATE OF SERVICE: 03/03/2018 REASON FOR FOLLOWUP: Haemophilus influenzae pneumonia. INTERVAL HISTORY: The patient is currently afebrile. The patient remains intubated on the vent. He is hemodynamically stable, though, not requiring any pressor support. FiO2 is stable has tube feeds and no diarrhea. PHYSICAL EXAMINATION: Blood pressure 142/77 with a pulse of 61, temperature 98.3. He is 98% on 40% FiO2. General description is a middle-aged male lying in bed in no distress. RESPIRATORY SYSTEM: Unlabored breathing with decreased intensity of breath sounds. No wheeze. HEART: S1, S2. Regular rate and rhythm. ABDOMEN: Soft. No tenderness. EXTREMITIES: No edema of the feet. LABS: BUN of 43, creatinine 0.74. Hemoglobin is 13.6, white count 12.2. Sputum with Haemophilus influenzae. DIAGNOSTIC IMPRESSION AND PLAN: Patient with Haemophilus influenzae pneumonia in a patient with acute respiratory failure, currently on the vent. He did have an x-ray which is mostly showing mild cardiomegaly with elevated left hemidiaphragm with left basilar atelectasis. Patient is currently covered with Zosyn and Levaquin; to continue for now, watching his kidney function, while watching his clinical course closely. Continue with supportive care. MMODL / IJN: [id number] /
[2018-03-03 23:30] LABS: Glucose,Whole Blood 170 mg/dL (75-99)
[2018-03-04] MEDS: DOPamine DRIP 800 MG in DEXTROSE/WATER 1 500ML.BAG IV SCH (00:24)
[2018-03-04] MEDS: IPRATROPIUM-ALBUTEROL 3 ML NEB INHALATION SCH ×7 (00:37→23:20)
[2018-03-04] MEDS: PROPOFOL 1,000 MG in EMPTY BAG 1 BAG IV SCH ×7 (02:23→22:15)
[2018-03-04] MEDS: SODIUM CHLORIDE 0.9% 1,000 ML IV SCH ×2 (05:10→17:38)
[2018-03-04 05:17] LABS: ABG Base Excess 11.1 mmol/L; ABG HCO3 37 mmol/L (21-25); ABG Oxygen Saturation 95.5 % (94-97); ABG PCO2 70 mmHg (35-45); ABG PH 7.33 (7.35-7.45); ABG PO2 78 mmHg (83-108); ABG TCO2 39 mmol/L (19-24)
[2018-03-04 05:36] LABS: HCT 49.3 % (39.0-53.0); HGB 14.6 gm/dL (13.0-17.5); Hypochromasia Marked; MCH 29.7 pg (25.0-35.0); MCHC 29.7 g/dL (31.0-37.0); MCV 99.8 fL (80.0-100.0); Mean Platelet Volume 7.1; Platelet Count 203 k/uL (150-450); RBC 4.94 m/uL (4.30-5.90); RDW 13.8 % (11.5-15.5); WBC 15.1 k/uL (3.8-10.6)
[2018-03-04 05:47] LABS: Glucose,Whole Blood 185 mg/dL (75-99)
[2018-03-04 05:59] LABS: Anion Gap 1 mmol/L; Blood Urea Nitrogen 48 mg/dL (9-20); Calcium 8.3 mg/dL (8.4-10.2); Carbon Dioxide 34 mmol/L (22-30); Chloride 105 mmol/L (98-107); Glucose 212 mg/dL (74-99); Magnesium 2.1 mg/dL (1.6-2.3); Phosphorus 3.9 mg/dL (2.5-4.5); Potassium 5.3 mmol/L (3.5-5.1); Sodium 140 mmol/L (137-145)
[2018-03-04] MEDS: methylPREDNISolone SOD SUCCI 125 MG/2 ML VIAL IV SCH ×3 (06:09→17:37)
[2018-03-04] MEDS: INSULIN ASPART 100 UNIT/ML 1 ML 10 ML VIAL SQ SCH ×3 (06:09→17:37)
[2018-03-04 06:29] LABS: Band Neutrophils % 16 %; Lymphocytes # (M) 1.51 k/uL (1.0-4.8); Metamyelocytes # (M) 1.81 k/uL (0); Metamyelocytes % 12 %; Monocytes # (M) 0.15 k/uL (0-1.0); Myelocytes # (M) 0.76 k/uL (0); Myelocytes % 5 %; Neutrophils % (M) 56 %; Nucleated Red Blood Cells 0 /100 WBC (0-0); Total Cells Counted 200
[2018-03-04 06:30] LABS: Toxic Granulation Present
[2018-03-04] MEDS: CLEVIDIPINE BUTYRATE 25 MG in EMPTY BAG 1 BAG IV SCH ×3 (06:31→09:07)
--- NOTE | 2018-03-04 07:21 | XR ---
EXAMINATION TYPE: XR chest 1V portable DATE OF EXAM: 03/04/2018 COMPARISON: 03/03/2018 HISTORY: SOB, Follow Up FINDINGS: Indwelling tubes and catheters are unchanged. No change in bibasilar opacities. Stable appearance of the cardio-mediastinal structures at this time. Pleural effusion unchanged. IMPRESSION: 1. Stable portable chest. Clinical correlation and follow up until resolution is recommended.
[2018-03-04] MEDS: FORMOTEROL FUMARATE 20 MCG/2 ML NEBU INHALATION SCH ×2 (08:10→20:09)
[2018-03-04] MEDS: BUDESONIDE 1 MG/2 ML NEBU INHALATION SCH ×2 (08:10→19:59)
[2018-03-04] MEDS: HEPARIN SODIUM,PORCINE 5,000 UNIT/ML 1 ML VIAL SQ SCH ×2 (08:55→16:12)
[2018-03-04] MEDS: CHLORHEXIDINE GLUCONATE 15 ML CUP MUCOUS MEM SCH ×2 (08:56→22:14)
[2018-03-04] MEDS: LISINOPRIL 20 MG TAB PO SCH (08:56)
[2018-03-04] MEDS: METHADONE 10 MG TAB PO SCH (08:56)
[2018-03-04] MEDS: PIPERACILLIN-TAZOBACTAM 3.375 GM in SODIUM CHLORIDE 0.9% 100 ML IVPB SCH ×2 (08:56→16:12)
[2018-03-04] MEDS: PANTOPRAZOLE 40 MG/10 ML VIAL IV SCH (08:57)
[2018-03-04] MEDS: LEVOFLOXACIN 500MG-D5W PMX 500 MG in DEXTROSE/WATER 1 100ML.BAG IVPB SCH (09:00)
--- NOTE | 2018-03-04 09:58 | P.PN ---
Subjective Progress Note Date: 03/04/18 Principal diagnosis: Acute exacerbation of chronic obstructive pulmonary disease requiring intubation, and mechanical ventilatory support, EtOH withdrawal This is a 52-year-old white male patient with past medical history for advanced COPD, with chronic hypoxic respiratory failure, EtOH abuse, past history of narcotic and methamphetamine abuse, currently on methadone, former smoker, lung cancer with the left lobectomy in childhood, and the details are not available to us at this time, was brought to the emergency department on 02/25/2018 per EMS, from the [facility] with complaints of increasing shortness of breath, vomiting. Recent had multiple episodes of vomiting over the 2 days prior to admission. No fever or chills, no chest pain, no weakness, dizziness, no urinary symptoms, no headaches, no abdominal pain. Admission chest x-ray showed elevated left hemidiaphragm related to previous pulmonary resection, evidence of heart failure, was questioning of the lung markings, slight blunting of the right costophrenic angle. Abdominal x-ray was negative. CBC was within normal limits on admission, chemistry showed sodium of 139, potassium is 5.8, chloride 93, CO2 is 39, BUN was 29 and creatinine was 0.8, LFTs were within normal limits, proBNP was elevated at 3750, troponin was 0.018 , lipase was 20, and amylase was 42, urinalysis was negative. Influenza was not detected. Patient was started on breathing treatments, empiric antibiotics , he was admitted to regular medical surgical floor. On 02/28/2018 epidural response was called to the patient's room with concerns of worsening shortness of breath, blood gas was obtained, and showed pO2 of greater than 400, pCO2 of 66, and pH of 7.40. His was done on FiO2 of 100%. Patient was quite tachypneic , and respiratory distress. His pulse ox was 76% on nasal cannula at 6 L. Patient was placed on BiPAP support, but shortly after with the rapid response team was called back to the room, is a patient was intolerant of BiPAP, he was severely anxious, he was requesting to be intubated, apparently patient had been intubated before. repeat chest was obtained, showed no acute lung disease, no change, no heart failure. Follow-up chest x-ray same day showed similar findings. In view of severe respiratory distress related to acute hypoxemic respiratory failure patient was intubated and placed on mechanical ventilator. Morning was seen the patient in the intensive care unit, he is sedated, he is on mechanical ventilator, current vent settings are assist-control mode of 22 breaths per minute, tidal volume of 450, FiO2 40% and PEEP of 5, morning blood gases were reviewed, and showed pO2 of 84, pCO2 55, and pH is 7.48. This morning's chest x-ray was reviewed with Dr. Calderon, and showed overall stable findings, mild cardiomegaly and small bilateral pleural effusions, left basilar atelectasis. Maintenance IV fluid is 0.9 normal saline at a rate of 75 ML per hour, Diprivan is at 65 mics per kilo per minute. ID service is following, Gram stain of the sputum showed many gram-negative cocci bacilli, and rare gram- positive cocci. Final cultures in progress. Afebrile, hemodynamically stable. Plasma lactic acid was elevated at 3.5, this morning is down to 2.1, patient was given IV fluids. Antibiotic coverage with Levaquin and vancomycin. The patient is seen again today 03/02/2018 in follow-up in the intensive care unit. He remains intubated on mechanical ventilator settings of assist control of 18, tidal volume 400, FiO2 40% and a PEEP of 5. Morning blood gases reveal a pO2 of 104, pCO2 of 61 and a pH of 7.39. His airway resistance is still high at 15.5. He is sedated on to prevent at 70 mcg/kg/m. Cleviprex at 1 mg per hour. 0.9 normal saline at 75 ML's per hour. He has Nam HP at 20 ML's per hour with a goal of 35. Microbiology is negative thus far. White count 6.8. Hemoglobin 13.3. Bicarb 34. Creatinine 0.63. He did have some issues with bradycardia sinus bradycardia in the 40s however currently in the 50s and did not require initiation of dopamine. He remains on antibiotics in form of vancomycin and Zosyn. Chest x-ray continues to show postop changes in the left hemithorax with persistent 5 loss and bandlike area of increased attenuation. Stable compared to previous. On 03/03/2018 patient seen in follow-up in the intensive care unit, he remains intubated, on mechanical ventilator, currently on assist-control mode with a rate of 18, tidal volume of 400, FiO2 40% and PEEP of 5. This morning his blood gases showed pO2 of 85, pCO2 53, and pH of 7.32. Maintenance IV fluids include 0.9 at a rate of 75 ML per hour, to prevent at 70 mics per kilo per minute. No other drips, nutritional support in the form of vital high protein at a rate of 35 with a goal of 35. Today's chest x-ray was reviewed by Dr. Calderon showed persistent mild cardiomegaly with elevated left hemidiaphragm and small left greater than right pleural effusions with associated left basilar atelectasis and/or infiltrate. Patient has been afebrile, hemodynamically stable. Airway pressure was 37, and plateau pressure was 19, calculated airway resistance was 15.5, which is 3 times the normal limit. Lung sounds positive for diffuse wheezes, and there is still copious amount of hernandez-colored thick secretions being suctioned from the endotracheal tube. Urine culture was positive for Haemophilus influenza culture was negative. Antibiotic coverage includes Levaquin and Zosyn. ID service is following, patient is on nebulized bronchodilators, and IV steroids. History patient had a sedation holiday, and became extremely agitated, had to be re-sedated. Early this morning patient was having some issues with bradycardia, currently sinus rhythm with a rate of 61 BPM, dopamine was ordered however patient did not require the drip after all. On 03/04/2018 patient seen in follow-up in the intensive care unit. Patient is currently off, and patient is quite agitated, not following commands, tachypneic , using accessory muscles of breathing, we'll place the patient back on sedation , no spontaneous breathing trials. Lung sounds are less bronchospastic, some scattered rhonchi, patient still having copious secretions suctioned from his ET tube, thick hernandez colored. Repeat sputum culture was positive for Haemophilus influenza A. Antibiotic coverage clues Levaquin and Zosyn. Current vent settings are assist-control mode with a rate of 18, 400, 40% and PEEP of 5, this morning his blood gases showed pO2 of 78, pCO2 of 70, and pH of 7.33. IV fluids 0.9 normal saline at a rate of 75 ML per hour, Cleviprex currently at 8 mg per hour, Diprivan at 75 mics per kilo per minute, nutritional support with vital high protein tube feedings at a rate of 50 with goal of 50. Peak airway pressure is 40, and peak plateau pressure is 18. We'll continue with medical treatment for COPD, patient is not ready for spontaneous breathing trials, his labs have been reviewed, showed WBC of 15.1, hemoglobin of 14.6, sodium is 140, potassium is 5.3, CO2 is 34, B1 is 40 and creatinine 0.65. Objective - Vital Signs Vital signs: Vital Signs Temp 98.3 F 03/04/18 04:00 Pulse 68 03/04/18 08:31 Resp 18 03/04/18 07:00 BP 141/85 03/04/18 07:00 Pulse Ox 95 03/04/18 07:00 Intake & Output 03/03/18 03/04/18 03/04/18 18:59 06:59 18:59 Intake Total 2114.000 2133.003 251.267 Output Total 792 855 45 Balance 3739.664 5606.003 206.267 Weight 81.5 kg Intake: IV 1239 958 78 Normal Saline Pressure 39 33 3 Bag Piperacillin-Tazobactam 3 225 100 .375 gm In Sodium Chloride 0.9% 100 ml @ 25 mls/hr IVPB Q8HR [facility] Rx# :[id number] Sodium Chloride 0.9% 1, 975 825 75 000 ml @ 75 mls/hr IV . [id number] [facility] Rx#:[id number] Intake, IV Titration 400.000 385.003 123.267 Amount Clevidipine Butyrate 25 0.3 23.267 mg In Empty Bag 1 bag @ 1 MG/HR 2 mls/hr IV .Q24H [facility] Rx#:[id number] Levofloxacin 500Mg-D5w 100 Pmx 500 mg In Dextrose/ Water 1 100ml.bag @ 100 mls/hr IVPB Q24H [facility] Rx#: [id number] Propofol 1,000 mg In 300.000 384.703 100 Empty Bag 1 bag @ Titrate IV .Q0M [facility] Rx#: [id number] Tube Feeding 415 700 50 Other 60 90 Output: Urine 792 855 45 Other: Voiding Method Indwelling Catheter Indwelling Catheter ABP, PAP, CO, CI - Last Documented Arterial Blood Pressure 146/77 - Exam GENERAL EXAM: Sedated, 52-year-old white male, intubated on mechanical ventilator currently agitated, sedation is on hold not following command HEAD: Normocephalic/atraumatic. EYES: Normal reaction of pupils, equal size. Conjunctiva pink, sclera white. NOSE: Clear with pink turbinates. THROAT: No erythema or exudates. NECK: No masses, no JVD, no thyroid enlargement, no adenopathy. CHEST: No chest wall deformity. Symmetrical expansion. LUNGS: Equal air entry with a few end expiratory wheezes scattered rhonchi. CVS: Regular rate and rhythm, normal S1 and S2, no gallops, no murmurs, no rubs ABDOMEN: Soft, nontender. No hepatosplenomegaly, normal bowel sounds, no guarding or rigidity. EXTREMITIES: No clubbing, no edema, no cyanosis, 2+ pulses and upper and lower extremities. MUSCULOSKELETAL: Muscle strength and tone normal. SPINE: No scoliosis or deformity SKIN: No rashes CENTRAL NERVOUS SYSTEM: Sedated. Tone is normal in all 4 extremities. - Labs CBC & Chem 7: 03/04/18 05:03 03/04/18 05:03 Labs: Abnormal Lab Results - Last 24 Hours (Table) 03/03/18 03/03/18 03/03/18 Range/Units 12:00 18:09 23:19 WBC (3.8-10.6) k/uL MCHC (31.0-37.0) g/dL Neutrophils # (Manual) (1.3-7.7) k/uL Metamyelocytes # (Man) (0) k/uL Myelocytes # (Manual) (0) k/uL ABG pH (7.35-7.45) ABG pCO2 (35-45) mmHg ABG pO2 (83-108) mmHg ABG HCO3 (21-25) mmol/L ABG Total CO2 (19-24) mmol/L Potassium (3.5-5.1) mmol/L Carbon Dioxide (22-30) mmol/L BUN (9-20) mg/dL Creatinine (0.66-1.25) mg/dL Glucose (74-99) mg/dL POC Glucose (mg/dL) 139 H 139 H 170 H (75-99) mg/dL Calcium (8.4-10.2) mg/dL 03/04/18 03/04/18 03/04/18 Range/Units 05:03 05:03 05:12 WBC 15.1 H (3.8-10.6) k/uL MCHC 29.7 L (31.0-37.0) g/dL Neutrophils # (Manual) 10.80 H (1.3-7.7) k/uL Metamyelocytes # (Man) 1.81 H (0) k/uL Myelocytes # (Manual) 0.76 H (0) k/uL ABG pH 7.33 L (7.35-7.45) ABG pCO2 70 H (35-45) mmHg ABG pO2 78 L (83-108) mmHg ABG HCO3 37 H (21-25) mmol/L ABG Total CO2 39 H (19-24) mmol/L Potassium 5.3 H (3.5-5.1) mmol/L Carbon Dioxide 34 H (22-30) mmol/L BUN 48 H (9-20) mg/dL Creatinine 0.65 L (0.66-1.25) mg/dL Glucose 212 H (74-99) mg/dL POC Glucose (mg/dL) (75-99) mg/dL Calcium 8.3 L (8.4-10.2) mg/dL 03/04/18 Range/Units 05:36 WBC (3.8-10.6) k/uL MCHC (31.0-37.0) g/dL Neutrophils # (Manual) (1.3-7.7) k/uL Metamyelocytes # (Man) (0) k/uL Myelocytes # (Manual) (0) k/uL ABG pH (7.35-7.45) ABG pCO2 (35-45) mmHg ABG pO2 (83-108) mmHg ABG HCO3 (21-25) mmol/L ABG Total CO2 (19-24) mmol/L Potassium (3.5-5.1) mmol/L Carbon Dioxide (22-30) mmol/L BUN (9-20) mg/dL Creatinine (0.66-1.25) mg/dL Glucose (74-99) mg/dL POC Glucose (mg/dL) 185 H (75-99) mg/dL Calcium (8.4-10.2) mg/dL Microbiology - Last 24 Hours (Table) 02/28/18 23:51 Blood Culture - Preliminary Blood No Growth after 72 hours 03/01/18 13:53 Gram Stain - Final Sputum Sputum Culture - Final Haemophilus influenzae Assessment and Plan Plan: Assessment: #1. Acute on chronic hypoxemic respiratory failure secondary to acute exacerbation of COPD, and possible Haemophilus influenza tracheobronchitis or Haemophilus influenza pneumonia in the left lower lobe. Required intubation and placement on mechanical ventilator on 02/28/2018. #2. Chronic hypercapnic respiratory failure related to advanced COPD with chronic hypoxemic respiratory failure patient is on home oxygen at 3 L per nasal cannula #3. Former smoker #4. EtOH abuse, narcotic abuse currently on methadone, methamphetamine abuse, patient is from [facility] facility #5. Several episodes of vomiting prior to admission, may be related to withdrawal symptoms #6. History of left lung cancer back in childhood reportedly related to history of Hodgkin's lymphoma according to the mother, with history of pulmonary resection #7. Lactic acidosis, improving Plan: Today's chest x-ray has been reviewed by Dr. Calderon, and showed stable chest, no change in bibasilar opacities. Continue with IV steroids, current antibiotic coverage, nebulized bronchodilators. Patient was unable to tolerate sedation holiday, became quite agitated, had to be placed back on sedation, not ready for spontaneous breathing trials. Continue nutritional support, tinea ventilator support at current vent settings. Daily chest x-rays and labs, continue to follow. I performed a history & physical examination of the patient and discussed their management with my nurse practitioner, Fabiana Gan. I reviewed the nurse practitioner's note and agree with the documented findings and plan of care. Lung sounds are positive for diffuse wheezes throughout the lung cerda. The findings and the impression was discussed with the patient. I attest to the documentation by the nurse practitioner. Time with Patient: Greater than 30
[2018-03-04 11:51] LABS: Glucose,Whole Blood 155 mg/dL (75-99)
[2018-03-04 16:17] LABS: Glucose,Whole Blood 166 mg/dL (75-99)
[2018-03-04 17:47] LABS: Glucose,Whole Blood 143 mg/dL (75-99)
--- NOTE | 2018-03-04 18:50 | PN ---
PROGRESS NOTE DATE OF SERVICE: 03/04/2018 CHIEF COMPLAINT: Respiratory failure. HISTORY OF PRESENT ILLNESS: This gentleman continues to require ventilator support. An effort was being made to reduce his sedation, but he became very agitated. PHYSICAL EXAMINATION: Vital signs are normal. Breath sounds are heard bilaterally and the balance of the exam is unremarkable. IMPRESSION: 1. Acute respiratory failure. 2. Exacerbation of chronic obstructive pulmonary disease. 3. Pneumonitis. PLAN: Continue to follow with Pulmonology. There is talk that he may require a trach if he continues to require ventilation. MMODL / IJN: [id number] /
--- NOTE | 2018-03-04 21:59 | PN ---
PROGRESS NOTE DATE OF SERVICE: 03/04/2018. REASON FOR FOLLOWUP: Haemophilus influenzae pneumonia. INTERVAL HISTORY: The patient is currently afebrile. He is hemodynamically stable, not requiring any pressor support. FiO2 remains stable. However, the patient did not tolerate his breathing trials per the RN. Tolerating his tube feed. No diarrhea. PHYSICAL EXAMINATION: Blood pressure 137/94, pulse of 62, temperature 98. He is 95% on 40% FiO2. General description is a middle-aged male lying in bed in no distress. RESPIRATORY SYSTEM: Unlabored breathing with decreased intensity of breath sounds. No wheeze. HEART: S1, S2. Regular rate and rhythm. ABDOMEN: Soft. No tenderness. EXTREMITIES: No edema of the feet. LABS: Hemoglobin 14.6, white count 15.1, BUN of 48, creatinine 0.65. DIAGNOSTIC IMPRESSION AND PLAN: Patient with Haemophilus influenzae pneumonia in a patient who did have acute respiratory failure which is likely multifactorial. The patient is currently covered with Zosyn and Levaquin. That will continue for now while waiting for his condition to stabilize. Continue with supportive care. MMODL / IJN: [id number] /
[2018-03-04] MEDS: traZODone HCL 50 MG TAB PO SCH (22:14)
[2018-03-05] MEDS: methylPREDNISolone SOD SUCCI 125 MG/2 ML VIAL IV SCH ×5 (00:01→23:55)
[2018-03-05] MEDS: INSULIN ASPART 100 UNIT/ML 1 ML 10 ML VIAL SQ SCH ×5 (00:01→23:56)
[2018-03-05] MEDS: PIPERACILLIN-TAZOBACTAM 3.375 GM in SODIUM CHLORIDE 0.9% 100 ML IVPB SCH ×2 (00:03→07:15)
[2018-03-05 00:06] LABS: Glucose,Whole Blood 140 mg/dL (75-99)
[2018-03-05] MEDS: PROPOFOL 1,000 MG in EMPTY BAG 1 BAG IV SCH ×6 (00:16→20:37)
[2018-03-05] MEDS: IPRATROPIUM-ALBUTEROL 3 ML NEB INHALATION SCH ×6 (03:20→23:19)
[2018-03-05] MEDS: DOPamine DRIP 800 MG in DEXTROSE/WATER 1 500ML.BAG IV SCH (04:25)
[2018-03-05 05:42] LABS: Anion Gap 4 mmol/L; Blood Urea Nitrogen 50 mg/dL (9-20); Calcium 8.2 mg/dL (8.4-10.2); Carbon Dioxide 33 mmol/L (22-30); Chloride 104 mmol/L (98-107); Glucose 215 mg/dL (74-99); Magnesium 2.1 mg/dL (1.6-2.3); Phosphorus 3.5 mg/dL (2.5-4.5); Potassium 5.4 mmol/L (3.5-5.1); Sodium 141 mmol/L (137-145)
[2018-03-05 05:44] LABS: ABG Base Excess 11.1 mmol/L; ABG HCO3 37 mmol/L (21-25); ABG Oxygen Saturation 93.9 % (94-97); ABG PCO2 66 mmHg (35-45); ABG PH 7.35 (7.35-7.45); ABG PO2 71 mmHg (83-108); ABG TCO2 39 mmol/L (19-24)
[2018-03-05 05:46] LABS: HGB 14.5 gm/dL (13.0-17.5); Hypochromasia Moderate; MCH 30.5 pg (25.0-35.0); MCHC 30.8 g/dL (31.0-37.0); MCV 99.3 fL (80.0-100.0); Mean Platelet Volume 7.3; Platelet Count 184 k/uL (150-450); RBC 4.73 m/uL (4.30-5.90); RDW 13.9 % (11.5-15.5); WBC 15.9 k/uL (3.8-10.6)
[2018-03-05 06:06] LABS: Glucose,Whole Blood 178 mg/dL (75-99)
[2018-03-05 06:22] LABS: Glucose,Whole Blood 174 mg/dL (75-99)
[2018-03-05 07:16] LABS: Band Neutrophils % 13 %; Lymphocytes # (M) 2.07 k/uL (1.0-4.8); Metamyelocytes % 5 %; Monocytes # (M) 0.16 k/uL (0-1.0); Myelocytes # (M) 0.48 k/uL (0); Myelocytes % 3 %; Neutrophils % (M) 66 %; Nucleated Red Blood Cells 0 /100 WBC (0-0); Total Cells Counted 200
[2018-03-05 07:18] LABS: Large Platelets Present
[2018-03-05 07:19] LABS: Anisocytosis (M) Present; Poikilocytosis (M) Present
[2018-03-05] MEDS: FORMOTEROL FUMARATE 20 MCG/2 ML NEBU INHALATION SCH ×2 (07:41→19:31)
[2018-03-05] MEDS: BUDESONIDE 1 MG/2 ML NEBU INHALATION SCH ×2 (07:41→19:31)
[2018-03-05] MEDS: METHADONE 10 MG TAB PO SCH (09:02)
[2018-03-05] MEDS: CHLORHEXIDINE GLUCONATE 15 ML CUP MUCOUS MEM SCH ×2 (09:04→20:38)
[2018-03-05] MEDS: HEPARIN SODIUM,PORCINE 5,000 UNIT/ML 1 ML VIAL SQ SCH ×4 (09:04→23:41)
[2018-03-05] MEDS: LISINOPRIL 20 MG TAB PO SCH (09:04)
[2018-03-05] MEDS: SODIUM CHLORIDE 0.9% 1,000 ML IV SCH ×2 (09:14→15:49)
[2018-03-05] MEDS: PANTOPRAZOLE 40 MG/10 ML VIAL IV SCH (09:14)
--- NOTE | 2018-03-05 09:37 | P.PN ---
Subjective Progress Note Date: 03/05/18 Principal diagnosis: Acute exacerbation of chronic obstructive pulmonary disease requiring intubation, and mechanical ventilatory support, EtOH withdrawal This is a 52-year-old white male patient with past medical history for advanced COPD, with chronic hypoxic respiratory failure, EtOH abuse, past history of narcotic and methamphetamine abuse, currently on methadone, former smoker, lung cancer with the left lobectomy in childhood, and the details are not available to us at this time, was brought to the emergency department on 02/25/2018 per EMS, from the [facility] with complaints of increasing shortness of breath, vomiting. Recent had multiple episodes of vomiting over the 2 days prior to admission. No fever or chills, no chest pain, no weakness, dizziness, no urinary symptoms, no headaches, no abdominal pain. Admission chest x-ray showed elevated left hemidiaphragm related to previous pulmonary resection, evidence of heart failure, was questioning of the lung markings, slight blunting of the right costophrenic angle. Abdominal x-ray was negative. CBC was within normal limits on admission, chemistry showed sodium of 139, potassium is 5.8, chloride 93, CO2 is 39, BUN was 29 and creatinine was 0.8, LFTs were within normal limits, proBNP was elevated at 3750, troponin was 0.018 , lipase was 20, and amylase was 42, urinalysis was negative. Influenza was not detected. Patient was started on breathing treatments, empiric antibiotics , he was admitted to regular medical surgical floor. On 02/28/2018 epidural response was called to the patient's room with concerns of worsening shortness of breath, blood gas was obtained, and showed pO2 of greater than 400, pCO2 of 66, and pH of 7.40. His was done on FiO2 of 100%. Patient was quite tachypneic , and respiratory distress. His pulse ox was 76% on nasal cannula at 6 L. Patient was placed on BiPAP support, but shortly after with the rapid response team was called back to the room, is a patient was intolerant of BiPAP, he was severely anxious, he was requesting to be intubated, apparently patient had been intubated before. repeat chest was obtained, showed no acute lung disease, no change, no heart failure. Follow-up chest x-ray same day showed similar findings. In view of severe respiratory distress related to acute hypoxemic respiratory failure patient was intubated and placed on mechanical ventilator. Morning was seen the patient in the intensive care unit, he is sedated, he is on mechanical ventilator, current vent settings are assist-control mode of 22 breaths per minute, tidal volume of 450, FiO2 40% and PEEP of 5, morning blood gases were reviewed, and showed pO2 of 84, pCO2 55, and pH is 7.48. This morning's chest x-ray was reviewed with Dr. Calderon, and showed overall stable findings, mild cardiomegaly and small bilateral pleural effusions, left basilar atelectasis. Maintenance IV fluid is 0.9 normal saline at a rate of 75 ML per hour, Diprivan is at 65 mics per kilo per minute. ID service is following, Gram stain of the sputum showed many gram-negative cocci bacilli, and rare gram- positive cocci. Final cultures in progress. Afebrile, hemodynamically stable. Plasma lactic acid was elevated at 3.5, this morning is down to 2.1, patient was given IV fluids. Antibiotic coverage with Levaquin and vancomycin. The patient is seen again today 03/02/2018 in follow-up in the intensive care unit. He remains intubated on mechanical ventilator settings of assist control of 18, tidal volume 400, FiO2 40% and a PEEP of 5. Morning blood gases reveal a pO2 of 104, pCO2 of 61 and a pH of 7.39. His airway resistance is still high at 15.5. He is sedated on to prevent at 70 mcg/kg/m. Cleviprex at 1 mg per hour. 0.9 normal saline at 75 ML's per hour. He has Nam HP at 20 ML's per hour with a goal of 35. Microbiology is negative thus far. White count 6.8. Hemoglobin 13.3. Bicarb 34. Creatinine 0.63. He did have some issues with bradycardia sinus bradycardia in the 40s however currently in the 50s and did not require initiation of dopamine. He remains on antibiotics in form of vancomycin and Zosyn. Chest x-ray continues to show postop changes in the left hemithorax with persistent 5 loss and bandlike area of increased attenuation. Stable compared to previous. On 03/03/2018 patient seen in follow-up in the intensive care unit, he remains intubated, on mechanical ventilator, currently on assist-control mode with a rate of 18, tidal volume of 400, FiO2 40% and PEEP of 5. This morning his blood gases showed pO2 of 85, pCO2 53, and pH of 7.32. Maintenance IV fluids include 0.9 at a rate of 75 ML per hour, to prevent at 70 mics per kilo per minute. No other drips, nutritional support in the form of vital high protein at a rate of 35 with a goal of 35. Today's chest x-ray was reviewed by Dr. Calderon showed persistent mild cardiomegaly with elevated left hemidiaphragm and small left greater than right pleural effusions with associated left basilar atelectasis and/or infiltrate. Patient has been afebrile, hemodynamically stable. Airway pressure was 37, and plateau pressure was 19, calculated airway resistance was 15.5, which is 3 times the normal limit. Lung sounds positive for diffuse wheezes, and there is still copious amount of hernandez-colored thick secretions being suctioned from the endotracheal tube. Urine culture was positive for Haemophilus influenza culture was negative. Antibiotic coverage includes Levaquin and Zosyn. ID service is following, patient is on nebulized bronchodilators, and IV steroids. History patient had a sedation holiday, and became extremely agitated, had to be re-sedated. Early this morning patient was having some issues with bradycardia, currently sinus rhythm with a rate of 61 BPM, dopamine was ordered however patient did not require the drip after all. On 03/04/2018 patient seen in follow-up in the intensive care unit. Patient is currently off, and patient is quite agitated, not following commands, tachypneic , using accessory muscles of breathing, we'll place the patient back on sedation , no spontaneous breathing trials. Lung sounds are less bronchospastic, some scattered rhonchi, patient still having copious secretions suctioned from his ET tube, thick hernandez colored. Repeat sputum culture was positive for Haemophilus influenza A. Antibiotic coverage clues Levaquin and Zosyn. Current vent settings are assist-control mode with a rate of 18, 400, 40% and PEEP of 5, this morning his blood gases showed pO2 of 78, pCO2 of 70, and pH of 7.33. IV fluids 0.9 normal saline at a rate of 75 ML per hour, Cleviprex currently at 8 mg per hour, Diprivan at 75 mics per kilo per minute, nutritional support with vital high protein tube feedings at a rate of 50 with goal of 50. Peak airway pressure is 40, and peak plateau pressure is 18. We'll continue with medical treatment for COPD, patient is not ready for spontaneous breathing trials, his labs have been reviewed, showed WBC of 15.1, hemoglobin of 14.6, sodium is 140, potassium is 5.3, CO2 is 34, B1 is 40 and creatinine 0.65. On 03/05/2018 patient seen in follow-up in the intensive care unit, remains intubated, on mechanical ventilator, current vent settings are assist-control mode with a rate of 18, tidal vital 400, FiO2 40% and PEEP of 5, this morning's blood gases showed pO2 of 70, pCO2 of 66, and pH of 7.35. This shows a chronic hypercapnic respiratory failure, these satisfactory blood gases, today's chest x -ray has been reviewed with Dr. Guzmán, and showed stable portable chest, no change in bibasilar opacities. No fever or chills, hemodynamically patient is stable, current IV fluids appointment normal saline at a rate of 75 ML per hour , Diprivan and is at 75 mics per kilo per minute, nutritional support in the form of vital high protein at 50 with a goal of 50. Patient's calculated airway resistance was 15, slightly improved. Current antibiotic coverage with Levaquin and Zosyn, and sputum cultures are positive for Haemophilus influenzae ID service is following. Lung sounds are positive for only a few scattered wheezes, improved from previous exams. Labs have been reviewed. WBC is 15.9, hemoglobin is 14.5, sodium is 141, potassium is 5.4, chloride is 104, CO2 is 33 , B1 is 15 creatinine 0.61. History patient had another sedation holiday, became extremely agitated, tachypneic, tachycardic, and was placed back on assist control and was sedation. Objective - Vital Signs Vital signs: Vital Signs Temp 98.8 F 03/04/18 16:00 Pulse 72 03/05/18 08:02 Resp 19 03/05/18 07:00 BP 116/71 03/05/18 04:30 Pulse Ox 94 L 03/05/18 07:00 Intake & Output 03/04/18 03/05/18 03/05/18 18:59 06:59 18:59 Intake Total 2786.265 1740.704 178 Output Total 745 830 75 Balance 2041.265 910.704 103 Weight 84.8 kg Intake: IV 1311 958 78 Levofloxacin 500Mg-D5w 100 Pmx 500 mg In Dextrose/ Water 1 100ml.bag @ 100 mls/hr IVPB Q24H [facility] Rx#: [id number] Normal Saline Pressure 36 33 3 Bag Piperacillin-Tazobactam 3 200 100 .375 gm In Sodium Chloride 0.9% 100 ml @ 25 mls/hr IVPB Q8HR [facility] Rx# :[id number] Sodium Chloride 0.9% 1, 975 825 75 000 ml @ 75 mls/hr IV . [id number] [facility] Rx#:[id number] Intake, IV Titration 440.265 262.704 100 Amount Clevidipine Butyrate 25 31.000 mg In Empty Bag 1 bag @ 1 MG/HR 2 mls/hr IV .Q24H [facility] Rx#:[id number] Propofol 1,000 mg In 409.265 262.704 100 Empty Bag 1 bag @ Titrate IV .Q0M [facility] Rx#: [id number] Tube Feeding 940 400 Other 95 120 Output: Urine 745 830 75 Other: Voiding Method Indwelling Catheter Indwelling Catheter ABP, PAP, CO, CI - Last Documented Arterial Blood Pressure 131/67 - Exam GENERAL EXAM: Sedated, 52-year-old white male, intubated on mechanical ventilator currently agitated, sedation is on hold not following command HEAD: Normocephalic/atraumatic. EYES: Normal reaction of pupils, equal size. Conjunctiva pink, sclera white. NOSE: Clear with pink turbinates. THROAT: No erythema or exudates. NECK: No masses, no JVD, no thyroid enlargement, no adenopathy. CHEST: No chest wall deformity. Symmetrical expansion. LUNGS: Equal air entry with a few end expiratory wheezes scattered rhonchi. CVS: Regular rate and rhythm, normal S1 and S2, no gallops, no murmurs, no rubs ABDOMEN: Soft, nontender. No hepatosplenomegaly, normal bowel sounds, no guarding or rigidity. EXTREMITIES: No clubbing, no edema, no cyanosis, 2+ pulses and upper and lower extremities. MUSCULOSKELETAL: Muscle strength and tone normal. SPINE: No scoliosis or deformity SKIN: No rashes CENTRAL NERVOUS SYSTEM: Sedated. Tone is normal in all 4 extremities. - Labs CBC & Chem 7: 03/05/18 04:45 03/05/18 04:45 Labs: Abnormal Lab Results - Last 24 Hours (Table) 03/04/18 03/04/18 03/04/18 Range/Units 11:40 16:06 17:36 WBC (3.8-10.6) k/uL MCHC (31.0-37.0) g/dL Neutrophils # (Manual) (1.3-7.7) k/uL Metamyelocytes # (Man) (0) k/uL Myelocytes # (Manual) (0) k/uL ABG pCO2 (35-45) mmHg ABG pO2 (83-108) mmHg ABG HCO3 (21-25) mmol/L ABG Total CO2 (19-24) mmol/L ABG O2 Saturation (94-97) % Potassium (3.5-5.1) mmol/L Carbon Dioxide (22-30) mmol/L BUN (9-20) mg/dL Creatinine (0.66-1.25) mg/dL Glucose (74-99) mg/dL POC Glucose (mg/dL) 155 H 166 H 143 H (75-99) mg/dL Calcium (8.4-10.2) mg/dL 03/04/18 03/05/18 03/05/18 Range/Units 23:54 04:45 04:45 WBC 15.9 H (3.8-10.6) k/uL MCHC 30.8 L (31.0-37.0) g/dL Neutrophils # (Manual) 12.50 H (1.3-7.7) k/uL Metamyelocytes # (Man) 0.80 H (0) k/uL Myelocytes # (Manual) 0.48 H (0) k/uL ABG pCO2 (35-45) mmHg ABG pO2 (83-108) mmHg ABG HCO3 (21-25) mmol/L ABG Total CO2 (19-24) mmol/L ABG O2 Saturation (94-97) % Potassium 5.4 H (3.5-5.1) mmol/L Carbon Dioxide 33 H (22-30) mmol/L BUN 50 H (9-20) mg/dL Creatinine 0.61 L (0.66-1.25) mg/dL Glucose 215 H (74-99) mg/dL POC Glucose (mg/dL) 140 H (75-99) mg/dL Calcium 8.2 L (8.4-10.2) mg/dL 03/05/18 03/05/18 03/05/18 Range/Units 05:20 05:55 06:11 WBC (3.8-10.6) k/uL MCHC (31.0-37.0) g/dL Neutrophils # (Manual) (1.3-7.7) k/uL Metamyelocytes # (Man) (0) k/uL Myelocytes # (Manual) (0) k/uL ABG pCO2 66 H (35-45) mmHg ABG pO2 71 L (83-108) mmHg ABG HCO3 37 H (21-25) mmol/L ABG Total CO2 39 H (19-24) mmol/L ABG O2 Saturation 93.9 L (94-97) % Potassium (3.5-5.1) mmol/L Carbon Dioxide (22-30) mmol/L BUN (9-20) mg/dL Creatinine (0.66-1.25) mg/dL Glucose (74-99) mg/dL POC Glucose (mg/dL) 178 H 174 H (75-99) mg/dL Calcium (8.4-10.2) mg/dL Microbiology - Last 24 Hours (Table) 02/28/18 23:51 Blood Culture - Preliminary Blood No Growth after 96 hours Assessment and Plan Plan: Assessment: #1. Acute on chronic hypoxemic respiratory failure secondary to acute exacerbation of COPD, and possible Haemophilus influenza tracheobronchitis or Haemophilus influenza pneumonia in the left lower lobe. Required intubation and placement on mechanical ventilator on 02/28/2018. #2. Chronic hypercapnic respiratory failure related to advanced COPD with chronic hypoxemic respiratory failure patient is on home oxygen at 3 L per nasal cannula #3. Former smoker #4. EtOH abuse, narcotic abuse currently on methadone, methamphetamine abuse, [facility]5. Several episodes of vomiting prior to admission, may be related to withdrawal symptoms #6. History of left lung cancer back in childhood reportedly related to history of Hodgkin's lymphoma according to the mother, with history of pulmonary resection #7. Lactic acidosis, improving Plan: Today's chest x-ray has been reviewed by Dr. Calderon, shows stable findings, stable appearance of bibasilar infiltrates, patient is afebrile, hemodynamically stable, current antibiotic coverage with Levaquin and Zosyn, sputum culture positive for Haemophilus influenza, we will discontinue the Zosyn continue with the Levaquin. We'll attempt another sedation holiday, patient has not been tolerating sedation holidays very well. There is a possibility patient may need tracheostomy and PEG tube placement. We will put in a consult for interventional radiology for PICC line placement today. Continue nutritional support, continue bronchodilators, IV steroids, and Pulmicort, Perforomist, continue to follow. Critical Care time is over 30 minutes I performed a history & physical examination of the patient and discussed their management with my nurse practitioner, Fabiana Gan. I reviewed the nurse practitioner's note and agree with the documented findings and plan of care. Lung sounds are positive for diffuse wheezes throughout the lung cerda. The findings and the impression was discussed with the patient. I attest to the documentation by the nurse practitioner. Time with Patient: Greater than 30
--- NOTE | 2018-03-05 09:51 | XR ---
EXAMINATION TYPE: XR chest 1V portable DATE OF EXAM: 03/05/2018 COMPARISON: 03/04/2018 INDICATION: Tube placement difficulty breathing TECHNIQUE: Single frontal view of the chest is obtained. FINDINGS: The heart size is enlarged. Surgical sutures are evident. There is elevation of the left diaphragm. The pulmonary vasculature is normal. There is increased opacification adjacent to the left diaphragm. Endotracheal tube is present with the tip above the noemi. Nasogastric tube transverses the thorax w ith tip in left upper quadrant of the abdomen. IMPRESSION: 1. Postsurgical changes with elevation left diaphragm. Some adjacent atelectasis and/or infiltrate ma y be present. 2. Lines and catheters discussed above.
[2018-03-05] MEDS: LEVOFLOXACIN 500MG-D5W PMX 500 MG in DEXTROSE/WATER 1 100ML.BAG IVPB SCH (10:43)
[2018-03-05] MEDS ORDERED: LIDOCAINE 2% (PF) 20 MG/ML 2 ML AMP SQ ONE (10:59)
--- NOTE | 2018-03-05 11:39 | XR ---
EXAMINATION TYPE: XR chest 1V portable DATE OF EXAM: 03/05/2018 COMPARISON: Prior chest x-ray same dated earlier time HISTORY: Status post PICC line placement TECHNIQUE: frontal view of the chest is obtained on 2 images. FINDINGS: There is been interval placement of a left-sided PICC line, distal tip is overlying the valencia perior vena cava. No pneumothorax or significant interval change. The entire left hemithorax not incl uded on exam. IMPRESSION: No evident complication status post PICC line placement.
[2018-03-05 11:41] LABS: Glucose,Whole Blood 100 mg/dL (75-99)
[2018-03-05 18:06] LABS: Glucose,Whole Blood 128 mg/dL (75-99)
[2018-03-05] MEDS: traZODone HCL 50 MG TAB PO SCH (20:38)
[2018-03-05] MEDS: cloNIDine HCL 0.1 MG TAB PO PRN (20:51)
--- NOTE | 2018-03-05 22:48 | PN ---
PROGRESS NOTE DATE OF SERVICE: 03/05/2018. REASON FOR FOLLOWUP: Haemophilus influenzae pneumoniae. INTERVAL HISTORY: The patient is currently afebrile. He is hemodynamically stable. He remains to be intubated on the vent. Unfortunately, not doing well with weaning parameters. Tolerating his tube feeds. No diarrhea. PHYSICAL EXAMINATION: Blood pressure 123/62 with a pulse of 80, temperature of 98. He is 95% on 40% FiO2. GENERAL DESCRIPTION: A middle-aged male lying in bed in no distress. RESPIRATORY SYSTEM: Unlabored breathing. Clear to auscultation anteriorly. HEART: S1, S2. Regular rate and rhythm. ABDOMEN: Soft, no tenderness. EXTREMITIES: No edema of the feet. LABS: Hemoglobin 14.5, white count 15.9, BUN of 15, creatinine 0.61. DIAGNOSTIC IMPRESSION/PLAN: Patient with acute respiratory failure which is likely multifactorial. Patient did have a component of Haemophilus influenza pneumoniae. Zosyn has been discontinued. He is currently on Levaquin to continue for now to finish extended course of therapy. Continue supportive care. MMODL / IJN: [id number] /
[2018-03-05 23:56] LABS: Glucose,Whole Blood 172 mg/dL (75-99)
[2018-03-06] MEDS: PROPOFOL 1,000 MG in EMPTY BAG 1 BAG IV SCH ×7 (00:05→23:49)
[2018-03-06] MEDS: IPRATROPIUM-ALBUTEROL 3 ML NEB INHALATION SCH ×6 (03:29→23:16)
[2018-03-06 05:25] LABS: ABG Base Excess 13.6 mmol/L; ABG HCO3 38 mmol/L (21-25); ABG Oxygen Saturation 95.5 % (94-97); ABG PCO2 62 mmHg (35-45); ABG PO2 74 mmHg (83-108); ABG TCO2 40 mmol/L (19-24)
[2018-03-06 05:50] LABS: HCT 45.5 % (39.0-53.0); HGB 14.2 gm/dL (13.0-17.5); Hypochromasia Slight; MCH 30.5 pg (25.0-35.0); MCHC 31.1 g/dL (31.0-37.0); MCV 97.9 fL (80.0-100.0); Mean Platelet Volume 7.5; Platelet Count 197 k/uL (150-450); RBC 4.65 m/uL (4.30-5.90); WBC 15.5 k/uL (3.8-10.6)
[2018-03-06 06:06] LABS: Glucose,Whole Blood 143 mg/dL (75-99)
[2018-03-06] MEDS: DOPamine DRIP 800 MG in DEXTROSE/WATER 1 500ML.BAG IV SCH (06:06)
[2018-03-06] MEDS: INSULIN ASPART 100 UNIT/ML 1 ML 10 ML VIAL SQ SCH ×4 (06:14→23:45)
[2018-03-06] MEDS: methylPREDNISolone SOD SUCCI 125 MG/2 ML VIAL IV SCH ×4 (06:14→23:26)
[2018-03-06 06:40] LABS: Potassium 5.4 mmol/L (3.5-5.1)
[2018-03-06 06:41] LABS: Anion Gap -2 mmol/L; Blood Urea Nitrogen 48 mg/dL (9-20); Calcium 8.4 mg/dL (8.4-10.2); Carbon Dioxide 39 mmol/L (22-30); Chloride 103 mmol/L (98-107); Glucose 164 mg/dL (74-99); Magnesium 2.2 mg/dL (1.6-2.3); Phosphorus 3.9 mg/dL (2.5-4.5); Sodium 140 mmol/L (137-145)
[2018-03-06] MEDS: BUDESONIDE 1 MG/2 ML NEBU INHALATION SCH ×2 (07:29→19:01)
[2018-03-06] MEDS: FORMOTEROL FUMARATE 20 MCG/2 ML NEBU INHALATION SCH ×2 (07:29→19:01)
[2018-03-06] MEDS: LISINOPRIL 20 MG TAB PO SCH (09:13)
[2018-03-06] MEDS: METHADONE 10 MG TAB PO SCH (09:13)
[2018-03-06] MEDS: CHLORHEXIDINE GLUCONATE 15 ML CUP MUCOUS MEM SCH ×2 (09:13→21:28)
[2018-03-06] MEDS: PANTOPRAZOLE 40 MG/10 ML VIAL IV SCH (09:13)
[2018-03-06] MEDS: HEPARIN SODIUM,PORCINE 5,000 UNIT/ML 1 ML VIAL SQ SCH ×3 (09:13→23:26)
[2018-03-06] MEDS: LEVOFLOXACIN 500MG-D5W PMX 500 MG in DEXTROSE/WATER 1 100ML.BAG IVPB SCH (10:29)
--- NOTE | 2018-03-06 10:37 | PN ---
PROGRESS NOTE This is a 52-year-old male with a history of acute on chronic hypoxemic respiratory failure secondary to chronic obstructive pulmonary disease exacerbation complicated by H influenzae tracheobronchitis or pneumonia left lower lobe. The patient remains on the ventilator. The patient was intubated on 02/28/2018. His settings include the volume assist-control mode rate of 18, tidal volume 400, FiO2 of 40%, PEEP of 5. Blood gases show a PaO2 of 74, a PaCO2 of 62, and pH 7.4. The patient is receiving saline IV at 75 mL an hour, Diprivan at 75 mcg/kg per minute, and Vital high-protein with a goal of 22 mL an hour running currently at that goal rate. His peak to plateau airways difference is 12 cm of water. His calculated airways resistance is 10.3 cm water per L per 2nd. That is about twice normal. His sputum was positive for H influenzae. He is on appropriate antibiotics. In addition, he has a history of chronic hypercapnic respiratory failure secondary to advanced COPD with need for home oxygen therapy, previous heavy tobacco use, alcohol abuse and narcotic abuse currently on methadone. Several episodes of vomiting requiring admission, probably related to withdrawal and history of left lung cancer, which turned out to be Hodgkin's lymphoma. The patient had a left lower lobe resection. The patient also came in with a lactic acidosis, which is improved. Currently stable on the ventilator. We have given him sedation holidays the last couple days. He becomes very agitated. He needs to be re-sedated. He may be headed towards a tracheostomy. Currently, temperature 98.8, heart rate 66, respiratory rate 15, blood pressure 168/80, saturations are mid 90s. Appears in no acute distress. Currently sedated. He has got an orally placed endotracheal tube and NG tube. PHYSICAL EXAMINATION: HEENT: Grossly unremarkable. Mucous membranes are moist. NECK: Supple. Full range of motion. No adenopathy, thyromegaly or neck vein distention. Cardiovascular examination reveals regular rhythm and rate. Heart rate in mid 70s. S1, S2 normal. No murmur. LUNGS: Some coarse inspiratory and expiratory rhonchi. Some expiratory wheezes are appreciated. Breath sounds equal bilaterally. ABDOMEN: Soft. Bowel sounds are heard. Extremities are intact. No cyanosis, clubbing, or edema. Skin without rash. Neurologic examination could not be properly assessed. LAB DATA: Minus a blood gas which is already been mentioned includes a white count of 15.5 with a normal hemoglobin, hematocrit and platelet count. Sodium 140, potassium 5.4, chloride is 103, CO2 of 39. BUN and creatinine were 48 and 0.61. Microbiologic studies were positive for sputum showing Haemophilus influenzae, both on the and on the . Medications are reviewed. ASSESSMENT: 1. Acute on chronic hypoxemic respiratory failure secondary to chronic obstructive pulmonary disease exacerbation, complicated by Haemophilus influenzae tracheobronchitis and bronchopneumonia left lower lobe. 2. Respiratory failure requiring intubation and mechanical ventilation beginning on February 28, 2018, with failure to wean. 3. Chronic hypercapnic respiratory failure secondary to advanced chronic obstructive pulmonary disease. 4. Chronic oxygen therapy. 5. Previous heavy tobacco use. 6. History of alcohol abuse. 7. History of narcotic abuse and methamphetamine abuse, currently on methadone. 8. History of Hodgkin lymphoma involving the left lung with previous resection. 9. Lactic acidosis, improved. PLAN: We will again give the patient a sedation holiday. We will see how he does. Hopefully he had a does well and we can start moving toward weaning and extubation. He has a significant decline in his airways resistance. Previously on admission, the airways resistance was 18.5 cm water per L per second. About half of that, now at 10.3 cm water per L per second. This is suggestive that his bronchospasm is significantly improved with bronchodilators and steroids. The patient will continue with nourishment. He is on good antibiotics. Medications are reviewed. Labs are reviewed. Critical care time 30 minutes. MMRAYRAYL / JACOBYN: [id number] /
--- NOTE | 2018-03-06 10:46 | XR ---
EXAMINATION TYPE: XR chest 1V portable DATE OF EXAM: 03/06/2018 COMPARISON: 03/05/2018 INDICATION: Tube placement TECHNIQUE: Single frontal view of the chest is obtained. FINDINGS: The heart size is enlarged. Adjacent surgical suture remains present.. The pulmonary vasculature is normal. Left lower lobe infiltrate and/or effusion may be present, stable. Endotracheal tube tip remains above the noemi. Nasogastric tube transverses the thorax. Tip is in t he left upper quadrant curled back on itself. There is elevation left diaphragm. PICC line on the lef t has its tip in the proximal right atrium. IMPRESSION: 1. Lines and catheters discussed above. 2. Elevation left diaphragm. Small left pleural effusion is not excluded.
[2018-03-06] MEDS: cloNIDine HCL 0.1 MG TAB PO PRN (11:47)
[2018-03-06] MEDS: SODIUM CHLORIDE 0.9% 1,000 ML IV SCH ×2 (12:03→23:32)
[2018-03-06 12:10] LABS: Glucose,Whole Blood 141 mg/dL (75-99)
[2018-03-06] MEDS: CLEVIDIPINE BUTYRATE 25 MG in EMPTY BAG 1 BAG IV SCH ×2 (13:12→23:25)
--- NOTE | 2018-03-06 15:01 | PN ---
PROGRESS NOTE DATE OF SERVICE: 03/05/2018 CHIEF COMPLAINT: Respiratory failure, pneumonitis and COPD. HISTORY OF PRESENT ILLNESS: There has been little change in this gentleman's status. He continues on a ventilator. When efforts were made not to wean him, he became very agitated. PHYSICAL EXAM: Vital signs are normal. Hydration is good. Breath sounds are heard on both sides. Cardiac exam is normal. IMPRESSION: 1. Respiratory failure. 2. Chronic obstructive pulmonary disease. PLAN: Continue to follow with pulmonology. MMODL / IJN: [id number] /
--- NOTE | 2018-03-06 16:13 | PN ---
PROGRESS NOTE DATE OF SERVICE: 03/06/2018. CHIEF COMPLAINT: Pneumonitis, respiratory failure, COPD and ventilator dependency. HISTORY OF PRESENT ILLNESS: The patient continues on the ventilator and there has been no significant change. PHYSICAL EXAM: Clinically he is stable. VITAL SIGNS: Normal. Breath sounds are heard on both sides. The cardiac exam is normal. Abdomen is soft. IMPRESSION: 1. Pneumonitis. 2. Respiratory failure. 3. Chronic obstructive pulmonary disease. PLAN: Continue to follow with intensive medicine. MMODL / IJN: [id number] /
[2018-03-06 17:56] LABS: Glucose,Whole Blood 140 mg/dL (75-99)
[2018-03-06] MEDS: traZODone HCL 50 MG TAB PO SCH (21:28)
[2018-03-06 23:48] LABS: Glucose,Whole Blood 190 mg/dL (75-99)
[2018-03-07 00:13] LABS: Glucose,Whole Blood 163 mg/dL (75-99)
[2018-03-07] MEDS: IPRATROPIUM-ALBUTEROL 3 ML NEB INHALATION SCH ×5 (03:00→19:29)
[2018-03-07] MEDS: PROPOFOL 1,000 MG in EMPTY BAG 1 BAG IV SCH ×2 (03:25→07:07)
[2018-03-07] MEDS: DOPamine DRIP 800 MG in DEXTROSE/WATER 1 500ML.BAG IV SCH (04:03)
[2018-03-07 05:21] LABS: ABG Base Excess 13.2 mmol/L; ABG HCO3 38 mmol/L (21-25); ABG PCO2 60 mmHg (35-45); ABG PH 7.41 (7.35-7.45); ABG PO2 80 mmHg (83-108); ABG TCO2 40 mmol/L (19-24)
[2018-03-07] MEDS: methylPREDNISolone SOD SUCCI 125 MG/2 ML VIAL IV SCH ×3 (05:29→18:44)
[2018-03-07] MEDS: INSULIN ASPART 100 UNIT/ML 1 ML 10 ML VIAL SQ SCH ×3 (05:30→18:42)
[2018-03-07 05:33] LABS: Glucose,Whole Blood 151 mg/dL (75-99)
[2018-03-07 05:49] LABS: HCT 43.9 % (39.0-53.0); HGB 13.9 gm/dL (13.0-17.5); MCH 30.5 pg (25.0-35.0); MCHC 31.8 g/dL (31.0-37.0); Mean Platelet Volume 7.4; Platelet Count 176 k/uL (150-450); RBC 4.58 m/uL (4.30-5.90); RDW 13.8 % (11.5-15.5); WBC 10.9 k/uL (3.8-10.6)
[2018-03-07 06:02] LABS: Anion Gap 0 mmol/L; Blood Urea Nitrogen 46 mg/dL (9-20); Calcium 8.4 mg/dL (8.4-10.2); Carbon Dioxide 37 mmol/L (22-30); Chloride 101 mmol/L (98-107); Glucose 167 mg/dL (74-99); Magnesium 2.3 mg/dL (1.6-2.3); Phosphorus 4.1 mg/dL (2.5-4.5); Potassium 5.1 mmol/L (3.5-5.1); Sodium 138 mmol/L (137-145)
[2018-03-07 06:18] LABS: Glucose,Whole Blood 187 mg/dL (75-99)
[2018-03-07] MEDS: BUDESONIDE 1 MG/2 ML NEBU INHALATION SCH ×2 (07:12→19:29)
[2018-03-07] MEDS: FORMOTEROL FUMARATE 20 MCG/2 ML NEBU INHALATION SCH ×2 (07:13→19:29)
[2018-03-07] MEDS: CHLORHEXIDINE GLUCONATE 15 ML CUP MUCOUS MEM SCH (08:00)
[2018-03-07] MEDS: PANTOPRAZOLE 40 MG/10 ML VIAL IV SCH (08:00)
[2018-03-07] MEDS: LISINOPRIL 20 MG TAB PO SCH (08:01)
[2018-03-07] MEDS: METHADONE 10 MG TAB PO SCH (08:01)
[2018-03-07] MEDS: HEPARIN SODIUM,PORCINE 5,000 UNIT/ML 1 ML VIAL SQ SCH ×2 (08:01→16:12)
--- NOTE | 2018-03-07 09:00 | XR ---
EXAMINATION TYPE: XR chest 1V portable DATE OF EXAM: 03/07/2018 COMPARISON: 03/06/2018 HISTORY: SOB, Follow Up FINDINGS: Indwelling tubes and catheters are unchanged. No change in bibasilar opacities. Stable appearance of the cardio-mediastinal structures at this time. Pleural effusion unchanged. IMPRESSION: 1. Stable portable chest. Clinical correlation and follow up until resolution is recommended.
[2018-03-07] MEDS: LEVOFLOXACIN 500MG-D5W PMX 500 MG in DEXTROSE/WATER 1 100ML.BAG IVPB SCH (09:08)
[2018-03-07 12:07] LABS: Glucose,Whole Blood 123 mg/dL (75-99)
--- NOTE | 2018-03-07 12:36 | PN ---
PROGRESS NOTE This is a 52-year-old male with acute on chronic hypoxemic respiratory failure. He was found to have H influenzae tracheobronchitis or bronchopneumonia left lower lobe. The patient remains on the mechanical ventilator. He is on the volume assist-control mode rate of 18, tidal volume 400, FiO2 of 40%, PEEP of 5. His blood gases show a PO2 of 80, pCO2 of 60 and a pH which is 7.41. The propofol is currently off. He is getting a daily interruption of sedation. The patient's saline IV is 0.9 at 75 mL an hour. He is getting Cleviprex at 2 mg an hour and Vital high-protein at 22 with a goal of 22 mL an hour. Sputum samples are positive for H influenzae x2. Chest x-ray is stable. It shows some consolidation and/or infiltrate in the left lower lobe. His peak airway pressure is down. His peak to plateau difference is much improved. Current vital signs are reviewed. Temperature is 98.8, heart rate 68, respiratory rate 22, blood pressure 147/95, mean 112, saturations are 96% on 40% FiO2 and 5 of PEEP. Appears in no acute distress. A bit agitated. Weaning parameters were excellent by the way. HEENT examination is grossly unremarkable. There is an orally placed endotracheal tube and NG tube. Neck is supple. Cardiovascular examination reveals regular rhythm rate. S1, S2 normal. Heart rate 68. Lungs reveal a few scattered rhonchi. No wheezes or crackles. Abdomen is soft. Bowel sounds are heard. Extremities are intact. No cyanosis, clubbing, or edema. Skin without rash. Neurologic examination is difficult to assess given the fact that the patient is sedated. Microbiology shows the H influenzae x2 on the and 28 of February. It is in the sputum. LABS: Reviewed. White count 10.9, hemoglobin 13.9, hematocrit 43.9, and platelet count 176,000. Sodium and potassium normal. Chloride 101, CO2 of 37. His BUN and creatinine were 46 and 0.52. Medications are reviewed. They are appropriate. ASSESSMENT: 1. Acute on chronic hypoxemic respiratory failure secondary to chronic obstructive pulmonary disease exacerbation complicated by Haemophilus influenzae tracheobronchitis and/or bronchopneumonia, left lower lobe. 2. Respiratory failure requiring intubation and mechanical ventilation beginning on February 28, 2018, with failure to wean. 3. Chronic hypercapnic respiratory failure secondary to advanced chronic obstructive pulmonary disease. 4. Chronic oxygen therapy for chronic hypoxemia. 5. Previous heavy tobacco use. 6. History of alcohol abuse. 7. History of narcotic abuse and methamphetamine abuse, currently on methadone. 8. History of Hodgkin's lymphoma involving the left lung with previous resection. 9. Lactic acidosis, resolved. PLAN: 03/07/2018. The patient will again be given a sedation holiday. We will put the patient on PSV 5, CPAP of 5, get some weaning parameters and check a cuff leak. If everything seems okay, we will attempt to extubate the patient. Additional suggestions and recommendations are made. He is on appropriate antibiotics. Medications have been reviewed. Labs are reviewed. X-ray stable. We will continue to follow. Prognosis is guarded. Critical care time is 33 minutes. JESSIE / KAL: [id number] /
[2018-03-07] MEDS: SODIUM CHLORIDE 0.9% 1,000 ML IV SCH (16:09)
[2018-03-07] MEDS: CLEVIDIPINE BUTYRATE 25 MG in EMPTY BAG 1 BAG IV SCH ×2 (16:09→20:32)
--- NOTE | 2018-03-07 16:32 | PN ---
PROGRESS NOTE CHIEF COMPLAINT: Respiratory failure, pneumonitis. HISTORY OF PRESENT ILLNESS: Three has been no significant change in this gentleman's status at this time. PHYSICAL EXAM: Breath sounds are heard on both sides and the cardiac exam is normal. Blood pressure is normal. IMPRESSION: 1. Respiratory failure. 2. Chronic obstructive pulmonary disease. 3. Pneumonitis. PLAN: Continue following with pulmonology. MMLENNIE / JACOBYN: [id number] /
[2018-03-07 18:03] LABS: Glucose,Whole Blood 114 mg/dL (75-99)
[2018-03-07] MEDS: traZODone HCL 50 MG TAB PO SCH (20:33)
[2018-03-08 00:09] LABS: Glucose,Whole Blood 116 mg/dL (75-99)
[2018-03-08] MEDS: IPRATROPIUM-ALBUTEROL 3 ML NEB INHALATION SCH ×7 (00:32→23:32)
[2018-03-08] MEDS: INSULIN ASPART 100 UNIT/ML 1 ML 10 ML VIAL SQ SCH ×5 (00:38→21:26)
[2018-03-08] MEDS: methylPREDNISolone SOD SUCCI 125 MG/2 ML VIAL IV SCH ×4 (01:05→17:09)
[2018-03-08] MEDS: HEPARIN SODIUM,PORCINE 5,000 UNIT/ML 1 ML VIAL SQ SCH ×3 (01:05→15:07)
[2018-03-08] MEDS: SODIUM CHLORIDE 0.9% 1,000 ML IV SCH ×2 (01:07→15:14)
[2018-03-08] MEDS: DOPamine DRIP 800 MG in DEXTROSE/WATER 1 500ML.BAG IV SCH (05:01)
[2018-03-08] MEDS: CLEVIDIPINE BUTYRATE 25 MG in EMPTY BAG 1 BAG IV SCH ×3 (05:18→17:07)
[2018-03-08 05:20] LABS: Glucose,Whole Blood 137 mg/dL (75-99)
[2018-03-08 05:35] LABS: HCT 50.8 % (39.0-53.0); HGB 16.1 gm/dL (13.0-17.5); MCH 29.6 pg (25.0-35.0); MCHC 31.8 g/dL (31.0-37.0); MCV 93.3 fL (80.0-100.0); Mean Platelet Volume 7.3; Platelet Count 205 k/uL (150-450); RBC 5.44 m/uL (4.30-5.90); RDW 13.9 % (11.5-15.5); WBC 12.3 k/uL (3.8-10.6)
[2018-03-08 06:22] LABS: Anion Gap 5 mmol/L; Blood Urea Nitrogen 37 mg/dL (9-20); Calcium 8.8 mg/dL (8.4-10.2); Carbon Dioxide 35 mmol/L (22-30); Chloride 99 mmol/L (98-107); Glucose 140 mg/dL (74-99); Magnesium 2.3 mg/dL (1.6-2.3); Phosphorus 3.5 mg/dL (2.5-4.5); Potassium 4.8 mmol/L (3.5-5.1); Sodium 139 mmol/L (137-145)
[2018-03-08] MEDS: BUDESONIDE 1 MG/2 ML NEBU INHALATION SCH ×2 (06:59→19:38)
[2018-03-08] MEDS: FORMOTEROL FUMARATE 20 MCG/2 ML NEBU INHALATION SCH ×2 (06:59→19:38)
--- NOTE | 2018-03-08 07:17 | XR ---
EXAMINATION TYPE: XR chest 1V portable DATE OF EXAM: 03/08/2018 COMPARISON: 03/07/2018 HISTORY: ARDS. Shortness of breath. Follow-up exam. TECHNIQUE: Single frontal view of the chest is obtained. FINDINGS: There remains elevation of the left hemidiaphragm and postoperative changes of the chest. Enteric and endotracheal tubes have been removed in the interim. Scattered linear right-sided opaciti es are favored to represent atelectasis. Healed right lateral midlung rib fracture is identified. Reji cified granulomas of the hilum are better visualized on the prior exam. Airspace disease at the left costophrenic angle is also favored to represent atelectasis. Cardia mediastinal silhouette is partial ly obscured but appears upper limits of normal. Left-sided PICC is unchanged. No new consolidation or pneumothorax. IMPRESSION: Trace right pleural effusion and linear scattered opacities favored to represent bilater al subsegmental atelectasis with persistent left hemidiaphragm elevation, postsurgical change of the chest and unchanged positioning of the left PICC.
[2018-03-08] MEDS: LISINOPRIL 20 MG TAB PO SCH (09:52)
[2018-03-08] MEDS: LEVOFLOXACIN 500MG-D5W PMX 500 MG in DEXTROSE/WATER 1 100ML.BAG IVPB SCH (09:53)
[2018-03-08] MEDS: PANTOPRAZOLE 40 MG/10 ML VIAL IV SCH (09:53)
[2018-03-08] MEDS: METHADONE 10 MG TAB PO SCH (09:53)
[2018-03-08] MEDS: cloNIDine HCL 0.1 MG TAB PO SCH (11:29)
[2018-03-08 11:58] LABS: Glucose,Whole Blood 131 mg/dL (75-99)
--- NOTE | 2018-03-08 13:12 | P.PN ---
Subjective Progress Note Date: 03/08/18 Principal diagnosis: Acute on chronic hypoxic respiratory failure secondary to COPD exacerbation and Haemophilus influenza pneumonia involving the left lower lobe. This is a 52-year-old white male patient with past medical history for advanced COPD, with chronic hypoxic respiratory failure, EtOH abuse, past history of narcotic and methamphetamine abuse, currently on methadone, former smoker, lung cancer with the left lobectomy in childhood, and the details are not available to us at this time, was brought to the emergency department on 02/25/2018 per EMS, from the [facility] facility with complaints of increasing shortness of breath, vomiting. Recent had multiple episodes of vomiting over the 2 days prior to admission. No fever or chills, no chest pain, no weakness, dizziness, no urinary symptoms, no headaches, no abdominal pain. Admission chest x-ray showed elevated left hemidiaphragm related to previous pulmonary resection, evidence of heart failure, was questioning of the lung markings, slight blunting of the right costophrenic angle. Abdominal x-ray was negative. CBC was within normal limits on admission, chemistry showed sodium of 139, potassium is 5.8, chloride 93, CO2 is 39, BUN was 29 and creatinine was 0.8, LFTs were within normal limits, proBNP was elevated at 3750, troponin was 0.018 , lipase was 20, and amylase was 42, urinalysis was negative. Influenza was not detected. Patient was started on breathing treatments, empiric antibiotics , he was admitted to regular medical surgical floor. On 02/28/2018 epidural response was called to the patient's room with concerns of worsening shortness of breath, blood gas was obtained, and showed pO2 of greater than 400, pCO2 of 66, and pH of 7.40. His was done on FiO2 of 100%. Patient was quite tachypneic , and respiratory distress. His pulse ox was 76% on nasal cannula at 6 L. Patient was placed on BiPAP support, but shortly after with the rapid response team was called back to the room, is a patient was intolerant of BiPAP, he was severely anxious, he was requesting to be intubated, apparently patient had been intubated before. repeat chest was obtained, showed no acute lung disease, no change, no heart failure. Follow-up chest x-ray same day showed similar findings. In view of severe respiratory distress related to acute hypoxemic respiratory failure patient was intubated and placed on mechanical ventilator. Morning was seen the patient in the intensive care unit, he is sedated, he is on mechanical ventilator, current vent settings are assist-control mode of 22 breaths per minute, tidal volume of 450, FiO2 40% and PEEP of 5, morning blood gases were reviewed, and showed pO2 of 84, pCO2 55, and pH is 7.48. This morning's chest x-ray was reviewed with Dr. Calderon, and showed overall stable findings, mild cardiomegaly and small bilateral pleural effusions, left basilar atelectasis. Maintenance IV fluid is 0.9 normal saline at a rate of 75 ML per hour, Diprivan is at 65 mics per kilo per minute. ID service is following, Gram stain of the sputum showed many gram-negative cocci bacilli, and rare gram- positive cocci. Final cultures in progress. Afebrile, hemodynamically stable. Plasma lactic acid was elevated at 3.5, this morning is down to 2.1, patient was given IV fluids. Antibiotic coverage with Levaquin and vancomycin. The patient is seen again today 03/02/2018 in follow-up in the intensive care unit. He remains intubated on mechanical ventilator settings of assist control of 18, tidal volume 400, FiO2 40% and a PEEP of 5. Morning blood gases reveal a pO2 of 104, pCO2 of 61 and a pH of 7.39. His airway resistance is still high at 15.5. He is sedated on to prevent at 70 mcg/kg/m. Cleviprex at 1 mg per hour. 0.9 normal saline at 75 ML's per hour. He has Nam HP at 20 ML's per hour with a goal of 35. Microbiology is negative thus far. White count 6.8. Hemoglobin 13.3. Bicarb 34. Creatinine 0.63. He did have some issues with bradycardia sinus bradycardia in the 40s however currently in the 50s and did not require initiation of dopamine. He remains on antibiotics in form of vancomycin and Zosyn. Chest x-ray continues to show postop changes in the left hemithorax with persistent 5 loss and bandlike area of increased attenuation. Stable compared to previous. On 03/03/2018 patient seen in follow-up in the intensive care unit, he remains intubated, on mechanical ventilator, currently on assist-control mode with a rate of 18, tidal volume of 400, FiO2 40% and PEEP of 5. This morning his blood gases showed pO2 of 85, pCO2 53, and pH of 7.32. Maintenance IV fluids include 0.9 at a rate of 75 ML per hour, to prevent at 70 mics per kilo per minute. No other drips, nutritional support in the form of vital high protein at a rate of 35 with a goal of 35. Today's chest x-ray was reviewed by Dr. Calderon showed persistent mild cardiomegaly with elevated left hemidiaphragm and small left greater than right pleural effusions with associated left basilar atelectasis and/or infiltrate. Patient has been afebrile, hemodynamically stable. Airway pressure was 37, and plateau pressure was 19, calculated airway resistance was 15.5, which is 3 times the normal limit. Lung sounds positive for diffuse wheezes, and there is still copious amount of hernandez-colored thick secretions being suctioned from the endotracheal tube. Urine culture was positive for Haemophilus influenza culture was negative. Antibiotic coverage includes Levaquin and Zosyn. ID service is following, patient is on nebulized bronchodilators, and IV steroids. History patient had a sedation holiday, and became extremely agitated, had to be re-sedated. Early this morning patient was having some issues with bradycardia, currently sinus rhythm with a rate of 61 BPM, dopamine was ordered however patient did not require the drip after all. On 03/04/2018 patient seen in follow-up in the intensive care unit. Patient is currently off, and patient is quite agitated, not following commands, tachypneic , using accessory muscles of breathing, we'll place the patient back on sedation , no spontaneous breathing trials. Lung sounds are less bronchospastic, some scattered rhonchi, patient still having copious secretions suctioned from his ET tube, thick hernandez colored. Repeat sputum culture was positive for Haemophilus influenza A. Antibiotic coverage clues Levaquin and Zosyn. Current vent settings are assist-control mode with a rate of 18, 400, 40% and PEEP of 5, this morning his blood gases showed pO2 of 78, pCO2 of 70, and pH of 7.33. IV fluids 0.9 normal saline at a rate of 75 ML per hour, Cleviprex currently at 8 mg per hour, Diprivan at 75 mics per kilo per minute, nutritional support with vital high protein tube feedings at a rate of 50 with goal of 50. Peak airway pressure is 40, and peak plateau pressure is 18. We'll continue with medical treatment for COPD, patient is not ready for spontaneous breathing trials, his labs have been reviewed, showed WBC of 15.1, hemoglobin of 14.6, sodium is 140, potassium is 5.3, CO2 is 34, B1 is 40 and creatinine 0.65. On 03/05/2018 patient seen in follow-up in the intensive care unit, remains intubated, on mechanical ventilator, current vent settings are assist-control mode with a rate of 18, tidal vital 400, FiO2 40% and PEEP of 5, this morning's blood gases showed pO2 of 70, pCO2 of 66, and pH of 7.35. This shows a chronic hypercapnic respiratory failure, these satisfactory blood gases, today's chest x -ray has been reviewed with Dr. Guzmán, and showed stable portable chest, no change in bibasilar opacities. No fever or chills, hemodynamically patient is stable, current IV fluids appointment normal saline at a rate of 75 ML per hour , Diprivan and is at 75 mics per kilo per minute, nutritional support in the form of vital high protein at 50 with a goal of 50. Patient's calculated airway resistance was 15, slightly improved. Current antibiotic coverage with Levaquin and Zosyn, and sputum cultures are positive for Haemophilus influenzae ID service is following. Lung sounds are positive for only a few scattered wheezes, improved from previous exams. Labs have been reviewed. WBC is 15.9, hemoglobin is 14.5, sodium is 141, potassium is 5.4, chloride is 104, CO2 is 33 , B1 is 15 creatinine 0.61. History patient had another sedation holiday, became extremely agitated, tachypneic, tachycardic, and was placed back on assist control and was sedation. Patient was reevaluated today on 03/08/2018, remains in the ICU, on nasal cannula, tolerated extubation well. Presently asymptomatic, no cough no wheezing, no shortness of breath. Patient was actually extubated yesterday. And he seems to be tolerating the extubation well. His labs were reviewed including normal basic metabolic profile, normal CBC. Chest x-ray was reviewed , there is a trace of right pleural effusion, and there is bilateral subsegmental atelectasis with a left hemidiaphragm elevation/chronic. Objective - Vital Signs Vital signs: Vital Signs Temp 99.1 F 03/08/18 12:00 Pulse 96 03/08/18 12:00 Resp 15 03/08/18 12:00 BP 135/82 03/08/18 12:00 Pulse Ox 94 L 03/08/18 12:00 Intake & Output 03/07/18 03/08/18 03/08/18 18:59 06:59 18:59 Intake Total 1182.394 976.3 772.567 Output Total 2230 3286 1375 Balance -1047.606 -2309.7 -602.433 Weight 84.4 kg 84.4 kg Intake: IV 1003 900 475 Levofloxacin 500Mg-D5w 100 100 Pmx 500 mg In Dextrose/ Water 1 100ml.bag @ 100 mls/hr IVPB Q24H BILLIE Rx#: [id number] Normal Saline Pressure 3 Bag Sodium Chloride 0.9% 1, 900 900 375 000 ml @ 75 mls/hr IV . [id number] BILLIE Rx#:[id number] Intake, IV Titration 85.394 76.3 57.567 Amount Clevidipine Butyrate 25 31.333 76.3 57.567 mg In Empty Bag 1 bag @ 1 MG/HR 2 mls/hr IV .Q24H BILLIE Rx#:[id number] Propofol 1,000 mg In 54.061 0 Empty Bag 1 bag @ Titrate IV .Q0M BILLIE Rx#: [id number] Oral 240 Tube Feeding 44 Other 50 Output: Urine 2230 3285 1375 Stool 1 Other: Voiding Method Indwelling Catheter Indwelling Catheter Indwelling Catheter # Voids 3 # Bowel Movements 1 1 1 ABP, PAP, CO, CI - Last Documented Arterial Blood Pressure 155/76 - Exam GENERAL EXAM: Sedated, 52-year-old white male, on nasal cannula, in no distress. HEAD: Normocephalic/atraumatic. EYES: Normal reaction of pupils, equal size. Conjunctiva pink, sclera white. NOSE: Clear with pink turbinates. THROAT: No erythema or exudates. NECK: No masses, no JVD, no thyroid enlargement, no adenopathy. CHEST: No chest wall deformity. Symmetrical expansion. LUNGS: Equal air entry with a few end expiratory wheezes scattered rhonchi. CVS: Regular rate and rhythm, normal S1 and S2, no gallops, no murmurs, no rubs ABDOMEN: Soft, nontender. No hepatosplenomegaly, normal bowel sounds, no guarding or rigidity. EXTREMITIES: No clubbing, no edema, no cyanosis, 2+ pulses and upper and lower extremities. MUSCULOSKELETAL: Muscle strength and tone normal. SPINE: No scoliosis or deformity SKIN: No rashes CENTRAL NERVOUS SYSTEM: Alert and oriented 3, no gross focal deficits. - Labs CBC & Chem 7: 03/08/18 05:15 03/08/18 05:15 Labs: Abnormal Lab Results - Last 24 Hours (Table) 03/07/18 03/07/18 03/08/18 Range/Units 17:52 23:57 05:09 WBC (3.8-10.6) k/uL Carbon Dioxide (22-30) mmol/L BUN (9-20) mg/dL Creatinine (0.66-1.25) mg/dL Glucose (74-99) mg/dL POC Glucose (mg/dL) 114 H 116 H 137 H (75-99) mg/dL 03/08/18 03/08/18 03/08/18 Range/Units 05:15 05:15 11:47 WBC 12.3 H (3.8-10.6) k/uL Carbon Dioxide 35 H (22-30) mmol/L BUN 37 H (9-20) mg/dL Creatinine 0.52 L (0.66-1.25) mg/dL Glucose 140 H (74-99) mg/dL POC Glucose (mg/dL) 131 H (75-99) mg/dL Assessment and Plan Assessment: #1. Acute on chronic hypoxemic respiratory failure secondary to acute exacerbation of COPD, and possible Haemophilus influenza tracheobronchitis or Haemophilus influenza pneumonia in the left lower lobe. Required intubation and placement on mechanical ventilator on 02/28/2018. Patient was extubated on , and so far seems to be tolerating the extubation well. #2. Chronic hypercapnic respiratory failure related to advanced COPD with chronic hypoxemic respiratory failure patient is on home oxygen at 3 L per nasal cannula #3. Former smoker #4. EtOH abuse, narcotic abuse currently on methadone, methamphetamine abuse, [facility]. Several episodes of vomiting prior to admission, may be related to withdrawal symptoms #6. History of left lung cancer back in childhood reportedly related to history of Hodgkin's lymphoma according to the mother, with history of pulmonary resection #7. Lactic acidosis, resolved. #8 history of Hodgkin's lymphoma Recommendation: Continue present course of bronchodilators, antibiotics, steroids, continue to monitor in the ICU for the next 24 hours, may consider transfer to a regular medical floor in the next 24 hours. All his meds bronchodilators, all his pain meds were reviewed and address. Long-term prognosis remains definitely poor and guarded. Not quite ready for discharge planning. We'll continue to follow Time with Patient: Less than 30
[2018-03-08] MEDS ORDERED: amLODIPine 5 MG TAB PO PRN (14:57)
[2018-03-08] MEDS ORDERED: amLODIPine 5 MG TAB PO STA (14:57)
[2018-03-08] MEDS: cloNIDine HCL 0.1 MG TAB PO PRN ×2 (17:14→21:24)
[2018-03-08 17:16] LABS: Glucose,Whole Blood 123 mg/dL (75-99)
[2018-03-08 20:55] LABS: Glucose,Whole Blood 155 mg/dL (75-99)
[2018-03-08] MEDS: traZODone HCL 50 MG TAB PO SCH (21:24)
[2018-03-09] MEDS: methylPREDNISolone SOD SUCCI 125 MG/2 ML VIAL IV SCH ×4 (00:20→18:10)
[2018-03-09] MEDS: HEPARIN SODIUM,PORCINE 5,000 UNIT/ML 1 ML VIAL SQ SCH ×3 (00:20→15:28)
[2018-03-09] MEDS: IPRATROPIUM-ALBUTEROL 3 ML NEB INHALATION SCH ×6 (03:39→22:57)
[2018-03-09 04:45] LABS: HCT 45.5 % (39.0-53.0); HGB 14.8 gm/dL (13.0-17.5); MCH 30.4 pg (25.0-35.0); MCHC 32.5 g/dL (31.0-37.0); MCV 93.4 fL (80.0-100.0); Mean Platelet Volume 7.8; Platelet Count 169 k/uL (150-450); RBC 4.87 m/uL (4.30-5.90); RDW 14.1 % (11.5-15.5); WBC 8.9 k/uL (3.8-10.6)
[2018-03-09 05:12] LABS: Anion Gap 3 mmol/L; Blood Urea Nitrogen 32 mg/dL (9-20); Calcium 7.8 mg/dL (8.4-10.2); Carbon Dioxide 32 mmol/L (22-30); Chloride 102 mmol/L (98-107); Glucose 142 mg/dL (74-99); Magnesium 1.9 mg/dL (1.6-2.3); Phosphorus 3.6 mg/dL (2.5-4.5); Potassium 4.4 mmol/L (3.5-5.1); Sodium 137 mmol/L (137-145)
[2018-03-09] MEDS ORDERED: Magnesium Replacement Protocol 1 EACH MISC MISCELLANE PRN (05:21)
[2018-03-09 06:15] LABS: Glucose,Whole Blood 150 mg/dL (75-99)
[2018-03-09] MEDS: MAGNESIUM SULFATE-D5W PMX 1 GM in DEXTROSE/WATER 1 100ML.BAG IVPB SCH ×2 (06:30→08:42)
[2018-03-09] MEDS: CLEVIDIPINE BUTYRATE 25 MG in EMPTY BAG 1 BAG IV SCH (06:31)
[2018-03-09] MEDS: SODIUM CHLORIDE 0.9% 1,000 ML IV SCH ×2 (06:32→15:28)
[2018-03-09] MEDS: INSULIN ASPART 100 UNIT/ML 1 ML 10 ML VIAL SQ SCH ×4 (06:41→20:52)
--- NOTE | 2018-03-09 07:07 | XR ---
EXAMINATION TYPE: XR chest 1V portable DATE OF EXAM: 03/09/2018 COMPARISON: 03/08/2018 HISTORY: Shortness of breath TECHNIQUE: Single frontal view of the chest is obtained. FINDINGS: There remains elevation of the left hemidiaphragm and postoperative changes of the chest. Scattered linear right-sided opacities are favored to represent atelectasis. Healed right lateral mi dlung rib fracture is identified. Airspace disease at the left costophrenic angle is also favored to represent atelectasis. Cardia med iastinal silhouette is partially obscured but appears upper limits of normal. Left-sided PICC is unch anged. No new consolidation or pneumothorax. IMPRESSION: 1. Bilateral consolidation and pleural effusion with elevated left hemidiaphragm. Underlying mild debra ous congestion not excluded.
[2018-03-09] MEDS: BUDESONIDE 1 MG/2 ML NEBU INHALATION SCH ×2 (07:25→20:14)
[2018-03-09] MEDS: FORMOTEROL FUMARATE 20 MCG/2 ML NEBU INHALATION SCH ×2 (07:25→20:14)
[2018-03-09] MEDS: cloNIDine HCL 0.1 MG TAB PO SCH ×2 (08:43→20:52)
[2018-03-09] MEDS: CEFDINIR 300 MG CAP PO SCH ×2 (08:43→20:51)
[2018-03-09] MEDS: PANTOPRAZOLE 40 MG/10 ML VIAL IV SCH (08:43)
[2018-03-09] MEDS: LISINOPRIL 20 MG TAB PO SCH (08:44)
[2018-03-09] MEDS: METHADONE 10 MG TAB PO SCH (08:44)
[2018-03-09] MEDS ORDERED: amLODIPine 5 MG TAB PO SCH (09:00)
[2018-03-09 12:22] LABS: Glucose,Whole Blood 162 mg/dL (75-99)
--- NOTE | 2018-03-09 12:48 | P.PN ---
Subjective Progress Note Date: 03/09/18 Principal diagnosis: Acute on chronic hypoxic respiratory failure secondary to COPD exacerbation and Haemophilus influenza pneumonia involving the left lower lobe. This is a 52-year-old white male patient with past medical history for advanced COPD, with chronic hypoxic respiratory failure, EtOH abuse, past history of narcotic and methamphetamine abuse, currently on methadone, former smoker, lung cancer with the left lobectomy in childhood, and the details are not available to us at this time, was brought to the emergency department on 02/25/2018 per EMS, from the [facility] facility with complaints of increasing shortness of breath, vomiting. Recent had multiple episodes of vomiting over the 2 days prior to admission. No fever or chills, no chest pain, no weakness, dizziness, no urinary symptoms, no headaches, no abdominal pain. Admission chest x-ray showed elevated left hemidiaphragm related to previous pulmonary resection, evidence of heart failure, was questioning of the lung markings, slight blunting of the right costophrenic angle. Abdominal x-ray was negative. CBC was within normal limits on admission, chemistry showed sodium of 139, potassium is 5.8, chloride 93, CO2 is 39, BUN was 29 and creatinine was 0.8, LFTs were within normal limits, proBNP was elevated at 3750, troponin was 0.018 , lipase was 20, and amylase was 42, urinalysis was negative. Influenza was not detected. Patient was started on breathing treatments, empiric antibiotics , he was admitted to regular medical surgical floor. On 02/28/2018 epidural response was called to the patient's room with concerns of worsening shortness of breath, blood gas was obtained, and showed pO2 of greater than 400, pCO2 of 66, and pH of 7.40. His was done on FiO2 of 100%. Patient was quite tachypneic , and respiratory distress. His pulse ox was 76% on nasal cannula at 6 L. Patient was placed on BiPAP support, but shortly after with the rapid response team was called back to the room, is a patient was intolerant of BiPAP, he was severely anxious, he was requesting to be intubated, apparently patient had been intubated before. repeat chest was obtained, showed no acute lung disease, no change, no heart failure. Follow-up chest x-ray same day showed similar findings. In view of severe respiratory distress related to acute hypoxemic respiratory failure patient was intubated and placed on mechanical ventilator. Morning was seen the patient in the intensive care unit, he is sedated, he is on mechanical ventilator, current vent settings are assist-control mode of 22 breaths per minute, tidal volume of 450, FiO2 40% and PEEP of 5, morning blood gases were reviewed, and showed pO2 of 84, pCO2 55, and pH is 7.48. This morning's chest x-ray was reviewed with Dr. Calderon, and showed overall stable findings, mild cardiomegaly and small bilateral pleural effusions, left basilar atelectasis. Maintenance IV fluid is 0.9 normal saline at a rate of 75 ML per hour, Diprivan is at 65 mics per kilo per minute. ID service is following, Gram stain of the sputum showed many gram-negative cocci bacilli, and rare gram- positive cocci. Final cultures in progress. Afebrile, hemodynamically stable. Plasma lactic acid was elevated at 3.5, this morning is down to 2.1, patient was given IV fluids. Antibiotic coverage with Levaquin and vancomycin. The patient is seen again today 03/02/2018 in follow-up in the intensive care unit. He remains intubated on mechanical ventilator settings of assist control of 18, tidal volume 400, FiO2 40% and a PEEP of 5. Morning blood gases reveal a pO2 of 104, pCO2 of 61 and a pH of 7.39. His airway resistance is still high at 15.5. He is sedated on to prevent at 70 mcg/kg/m. Cleviprex at 1 mg per hour. 0.9 normal saline at 75 ML's per hour. He has Nam HP at 20 ML's per hour with a goal of 35. Microbiology is negative thus far. White count 6.8. Hemoglobin 13.3. Bicarb 34. Creatinine 0.63. He did have some issues with bradycardia sinus bradycardia in the 40s however currently in the 50s and did not require initiation of dopamine. He remains on antibiotics in form of vancomycin and Zosyn. Chest x-ray continues to show postop changes in the left hemithorax with persistent 5 loss and bandlike area of increased attenuation. Stable compared to previous. On 03/03/2018 patient seen in follow-up in the intensive care unit, he remains intubated, on mechanical ventilator, currently on assist-control mode with a rate of 18, tidal volume of 400, FiO2 40% and PEEP of 5. This morning his blood gases showed pO2 of 85, pCO2 53, and pH of 7.32. Maintenance IV fluids include 0.9 at a rate of 75 ML per hour, to prevent at 70 mics per kilo per minute. No other drips, nutritional support in the form of vital high protein at a rate of 35 with a goal of 35. Today's chest x-ray was reviewed by Dr. Calderon showed persistent mild cardiomegaly with elevated left hemidiaphragm and small left greater than right pleural effusions with associated left basilar atelectasis and/or infiltrate. Patient has been afebrile, hemodynamically stable. Airway pressure was 37, and plateau pressure was 19, calculated airway resistance was 15.5, which is 3 times the normal limit. Lung sounds positive for diffuse wheezes, and there is still copious amount of hernandez-colored thick secretions being suctioned from the endotracheal tube. Urine culture was positive for Haemophilus influenza culture was negative. Antibiotic coverage includes Levaquin and Zosyn. ID service is following, patient is on nebulized bronchodilators, and IV steroids. History patient had a sedation holiday, and became extremely agitated, had to be re-sedated. Early this morning patient was having some issues with bradycardia, currently sinus rhythm with a rate of 61 BPM, dopamine was ordered however patient did not require the drip after all. On 03/04/2018 patient seen in follow-up in the intensive care unit. Patient is currently off, and patient is quite agitated, not following commands, tachypneic , using accessory muscles of breathing, we'll place the patient back on sedation , no spontaneous breathing trials. Lung sounds are less bronchospastic, some scattered rhonchi, patient still having copious secretions suctioned from his ET tube, thick hernandez colored. Repeat sputum culture was positive for Haemophilus influenza A. Antibiotic coverage clues Levaquin and Zosyn. Current vent settings are assist-control mode with a rate of 18, 400, 40% and PEEP of 5, this morning his blood gases showed pO2 of 78, pCO2 of 70, and pH of 7.33. IV fluids 0.9 normal saline at a rate of 75 ML per hour, Cleviprex currently at 8 mg per hour, Diprivan at 75 mics per kilo per minute, nutritional support with vital high protein tube feedings at a rate of 50 with goal of 50. Peak airway pressure is 40, and peak plateau pressure is 18. We'll continue with medical treatment for COPD, patient is not ready for spontaneous breathing trials, his labs have been reviewed, showed WBC of 15.1, hemoglobin of 14.6, sodium is 140, potassium is 5.3, CO2 is 34, B1 is 40 and creatinine 0.65. On 03/05/2018 patient seen in follow-up in the intensive care unit, remains intubated, on mechanical ventilator, current vent settings are assist-control mode with a rate of 18, tidal vital 400, FiO2 40% and PEEP of 5, this morning's blood gases showed pO2 of 70, pCO2 of 66, and pH of 7.35. This shows a chronic hypercapnic respiratory failure, these satisfactory blood gases, today's chest x -ray has been reviewed with Dr. Guzmán, and showed stable portable chest, no change in bibasilar opacities. No fever or chills, hemodynamically patient is stable, current IV fluids appointment normal saline at a rate of 75 ML per hour , Diprivan and is at 75 mics per kilo per minute, nutritional support in the form of vital high protein at 50 with a goal of 50. Patient's calculated airway resistance was 15, slightly improved. Current antibiotic coverage with Levaquin and Zosyn, and sputum cultures are positive for Haemophilus influenzae ID service is following. Lung sounds are positive for only a few scattered wheezes, improved from previous exams. Labs have been reviewed. WBC is 15.9, hemoglobin is 14.5, sodium is 141, potassium is 5.4, chloride is 104, CO2 is 33 , B1 is 15 creatinine 0.61. History patient had another sedation holiday, became extremely agitated, tachypneic, tachycardic, and was placed back on assist control and was sedation. Patient was reevaluated today on 03/08/2018, remains in the ICU, on nasal cannula, tolerated extubation well. Presently asymptomatic, no cough no wheezing, no shortness of breath. Patient was actually extubated yesterday. And he seems to be tolerating the extubation well. His labs were reviewed including normal basic metabolic profile, normal CBC. Chest x-ray was reviewed , there is a trace of right pleural effusion, and there is bilateral subsegmental atelectasis with a left hemidiaphragm elevation/chronic. Patient was reevaluated today on 03/09/2018 remains in the ICU, breathing much better, feeling much better, however he is complaining about the fact that he is not being cleaned up, by the nursing staff, but found out that the patient actually refused to be bathed this morning. Patient denies any cough, no wheezing, no fever, no chills, no hemoptysis, no nausea, no vomiting, no abdominal pain, no melena, no hematemesis. Labs including CBC and basic metabolic profile were noted to be normal. Objective - Vital Signs Vital signs: Vital Signs Temp 97.9 F 03/09/18 12:00 Pulse 92 03/09/18 12:00 Resp 13 03/09/18 12:00 BP 133/93 03/09/18 12:00 Pulse Ox 97 03/09/18 12:00 Intake & Output 03/08/18 03/09/18 03/09/18 18:59 06:59 18:59 Intake Total 4846.680 7266.234 984.934 Output Total 1999 1580 1150 Balance -126.534 -548.766 -165.066 Weight 84.4 kg 84 kg Intake: IV 925 900 450 Levofloxacin 500Mg-D5w 100 Pmx 500 mg In Dextrose/ Water 1 100ml.bag @ 100 mls/hr IVPB Q24H [facility]ILLIE Rx#: [id number] Sodium Chloride 0.9% 1, 825 900 450 000 ml @ 75 mls/hr IV . [id number] BILLIE Rx#:[id number] Intake, IV Titration 108.466 11.234 234.934 Amount Clevidipine Butyrate 25 108.466 11.234 34.934 mg In Empty Bag 1 bag @ 1 MG/HR 2 mls/hr IV .Q24H [facility]ILL[facility] Rx#:[id number] Magnesium Sulfate-D5w Pmx 200 1 gm In Dextrose/Water 1 100ml.bag @ 100 mls/hr IVPB Q1H [facility] Rx#: [id number] Oral 840 120 300 Output: Urine 1999 1580 1150 Other: Voiding Method Indwelling Catheter Indwelling Catheter Indwelling Catheter # Bowel Movements 1 1 ABP, PAP, CO, CI - Last Documented Arterial Blood Pressure 155/76 - Exam GENERAL EXAM: Sedated, 52-year-old white male, on nasal cannula, in no distress. HEAD: Normocephalic/atraumatic. EYES: Normal reaction of pupils, equal size. Conjunctiva pink, sclera white. NOSE: Clear with pink turbinates. THROAT: No erythema or exudates. NECK: No masses, no JVD, no thyroid enlargement, no adenopathy. CHEST: No chest wall deformity. Symmetrical expansion. LUNGS: Equal air entry with diminished breath sounds at the left base, no crackles or rhonchi or wheezes. CVS: Regular rate and rhythm, normal S1 and S2, no gallops, no murmurs, no rubs ABDOMEN: Soft, nontender. No hepatosplenomegaly, normal bowel sounds, no guarding or rigidity. EXTREMITIES: No clubbing, no edema, no cyanosis, 2+ pulses and upper and lower extremities. MUSCULOSKELETAL: Muscle strength and tone normal. SPINE: No scoliosis or deformity SKIN: No rashes CENTRAL NERVOUS SYSTEM: Alert and oriented 3, no gross focal deficits. - Labs CBC & Chem 7: 03/09/18 03:55 03/09/18 03:55 Labs: Abnormal Lab Results - Last 24 Hours (Table) 03/08/18 03/08/18 03/09/18 Range/Units 17:04 20:42 03:55 Carbon Dioxide 32 H (22-30) mmol/L BUN 32 H (9-20) mg/dL Creatinine 0.49 L (0.66-1.25) mg/dL Glucose 142 H (74-99) mg/dL POC Glucose (mg/dL) 123 H 155 H (75-99) mg/dL Calcium 7.8 L (8.4-10.2) mg/dL 03/09/18 03/09/18 Range/Units 06:03 12:10 Carbon Dioxide (22-30) mmol/L BUN (9-20) mg/dL Creatinine (0.66-1.25) mg/dL Glucose (74-99) mg/dL POC Glucose (mg/dL) 150 H 162 H (75-99) mg/dL Calcium (8.4-10.2) mg/dL Assessment and Plan Assessment: #1. Acute on chronic hypoxemic respiratory failure secondary to acute exacerbation of COPD, and possible Haemophilus influenza tracheobronchitis or Haemophilus influenza pneumonia in the left lower lobe. Required intubation and placement on mechanical ventilator on 02/28/2018. Patient was extubated on , and so far seems to be tolerating the extubation well. #2. Chronic hypercapnic respiratory failure related to advanced COPD with chronic hypoxemic respiratory failure patient is on home oxygen at 3 L per nasal cannula #3. Former smoker #4. EtOH abuse, narcotic abuse currently on methadone, methamphetamine abuse, patient is from [facility] facility #5. Several episodes of vomiting prior to admission, may be related to withdrawal symptoms #6. History of left lung cancer back in childhood reportedly related to history of Hodgkin's lymphoma according to the mother, with history of pulmonary resection #7. Lactic acidosis, resolved. #8 history of Hodgkin's lymphoma Recommendation: Continue present course of bronchodilators, antibiotics, steroids, we'll arrange for the patient be transferred to a regular medical floor today, in the meantime we will continue to address all the complex issues as noted above some of them have already resolved. Eventually the patient will be be transferred to [facility]. He is requesting to be transferred to [place] near his family. That will be addressed by the case picker and protective services social worker hopefully in the next couple of days. Time with Patient: Less than 30
[2018-03-09] MEDS: ALPRAZolam 0.25 MG TAB PO PRN (15:28)
--- NOTE | 2018-03-09 16:14 | PN ---
PROGRESS NOTE DATE OF SERVICE: 03/08/2018. CHIEF COMPLAINT: Respiratory failure and COPD. HISTORY OF PRESENT ILLNESS: This gentleman continues to improve. PHYSICAL EXAM: Breath sounds are quite clear. Cardiac exam is normal. Abdomen is soft, nontender. IMPRESSION: 1. Respiratory failure. 2. Chronic obstructive pulmonary disease. PLAN: No change in program. MMODL / IJN: [id number] /
--- NOTE | 2018-03-09 16:58 | PN ---
PROGRESS NOTE DATE OF SERVICE: 03/09/2018 CHIEF COMPLAINT: Respiratory failure and COPD. HISTORY OF PRESENT ILLNESS: This gentleman is doing better. He has been extubated and is awake, alert, oriented. He has some blotchy areas that look like ecchymoses on the left wrist and hand which might be related to radial artery catheter. He also has some areas on the prepatellar areas and on the feet. Other than that, he is doing well. PHYSICAL EXAM: Breath sounds are heard well in both sides. Cardiac exam is normal and vital signs are normal. IMPRESSION: 1. Respiratory failure. 2. Chronic obstructive pulmonary disease. 3. Pneumonitis. 4. Areas that could suggest some mild ischemia in the lower extremities and left hand. PLAN: Continue to follow and he is definitely improving and will be moved to a med/surg bed when available. JESSIE / KAL: [id number] /
[2018-03-09 17:16] LABS: Glucose,Whole Blood 124 mg/dL (75-99)
--- NOTE | 2018-03-09 20:32 | PN ---
PROGRESS NOTE DATE OF SERVICE: 03/08/2018. REASON FOR FOLLOW UP: Haemophilus influenzae pneumonia. INTERVAL HISTORY: The patient is afebrile. The patient was extubated yesterday. Has been breathing comfortably on nasal cannula oxygen. Denies having any chest pain. Did have some cough. Not bringing up any sputum. No nausea, no vomiting. No abdominal pain. No diarrhea. PHYSICAL EXAMINATION: Blood pressure 141/92 with a pulse of 101, temperature 98.3. He is 92% on 4 L nasal cannula. General description is a middle-aged male lying in bed in no distress. Respiratory system: Unlabored breathing. Decreased breath sounds in the bases. No wheeze. Heart S1, S2. Regular rate and rhythm. Abdomen soft, no tenderness. LABS: Hemoglobin 15.1, white count 12.3, BUN of 37, creatinine 0.52. DIAGNOSTIC IMPRESSION AND PLAN: Patient Haemophilus influenzae pneumonia. The patient received about 3 days of antibiotic in view of the patient underlying respiratory failure and will give a short course of oral Ceftin and watch his clinical course closely. Continue supportive care. MMODL / IJN: [id number] /
[2018-03-09] MEDS: amLODIPine 5 MG TAB PO SCH (20:51)
[2018-03-09 21:00] LABS: Glucose,Whole Blood 191 mg/dL (75-99)
[2018-03-09] MEDS: traZODone HCL 50 MG TAB PO SCH (22:18)
[2018-03-10] MEDS: methylPREDNISolone SOD SUCCI 125 MG/2 ML VIAL IV SCH ×3 (00:31→11:59)
[2018-03-10] MEDS: HEPARIN SODIUM,PORCINE 5,000 UNIT/ML 1 ML VIAL SQ SCH ×4 (00:32→23:14)
[2018-03-10] MEDS: IPRATROPIUM-ALBUTEROL 3 ML NEB INHALATION SCH ×6 (03:09→23:07)
--- NOTE | 2018-03-10 05:05 | PN ---
PROGRESS NOTE DATE OF SERVICE: 03/09/2018 REASON FOR FOLLOWUP: Haemophilus influenzae pneumonia. INTERVAL HISTORY: The patient is currently afebrile. He has been breathing comfortably. Denies having any chest pain or shortness of breath. Occasional cough. No abdominal pain. No diarrhea. PHYSICAL EXAMINATION: On examination, blood pressure 145/86, pulse of 79, temperature . General description is a middle-aged male lying in bed in no distress. RESPIRATORY SYSTEM: Unlabored breathing with decreased breath sounds in the bases. No wheeze. HEART: S1, S2. Regular rate and rhythm. ABDOMEN: Soft, no tenderness. LABS: Hemoglobin is 14.8, white count 8.9, BUN of 32, creatinine 0.49. DIAGNOSTIC IMPRESSION AND PLAN: Patient with Haemophilus influenzae pneumonia in a patient who did have acute respiratory failure vent dependent. He has been successfully extubated. Patient will continue on Ceftin for another few days. Continue supportive care. MMODL / IJN: [id number] /
[2018-03-10] MEDS: SODIUM CHLORIDE 0.9% 1,000 ML IV SCH ×2 (06:21→21:52)
[2018-03-10] MEDS: BUDESONIDE 1 MG/2 ML NEBU INHALATION SCH ×2 (07:15→19:20)
[2018-03-10] MEDS: FORMOTEROL FUMARATE 20 MCG/2 ML NEBU INHALATION SCH ×2 (07:15→19:32)
[2018-03-10 07:38] LABS: Glucose,Whole Blood 151 mg/dL (75-99)
[2018-03-10] MEDS: METHADONE 10 MG TAB PO SCH (07:49)
[2018-03-10] MEDS: CEFDINIR 300 MG CAP PO SCH ×2 (07:50→21:48)
[2018-03-10] MEDS: ALPRAZolam 0.25 MG TAB PO PRN (07:50)
[2018-03-10] MEDS: INSULIN ASPART 100 UNIT/ML 1 ML 10 ML VIAL SQ SCH ×4 (07:56→21:49)
[2018-03-10] MEDS: PANTOPRAZOLE 40 MG TABLET PO SCH (07:56)
[2018-03-10] MEDS: amLODIPine 5 MG TAB PO SCH ×2 (07:58→21:48)
[2018-03-10] MEDS: LISINOPRIL 20 MG TAB PO SCH (07:59)
[2018-03-10] MEDS: cloNIDine HCL 0.1 MG TAB PO SCH ×2 (07:59→21:48)
--- NOTE | 2018-03-10 08:27 | XR ---
EXAMINATION TYPE: XR chest 1V portable DATE OF EXAM: 03/10/2018 Comparison: 03/09/2018 Clinical History: 52 year-old male shortness of breath, ARDS Findings: Left PICC tip is in the right atrium. Continued elevation of the left hemidiaphragm with surgical sta ple line at the left base, possible underlying left effusion, and patchy left basilar opacity. There is a band of opacity suggesting underlying atelectasis. Small right pleural effusion is suggested. Wh ile the left hemidiaphragm remains elevated, it is less so as compared to 03/09/2018. Impression: Surgical changes along the left midlung with markedly elevated left hemidiaphragm, slightly less elev ated compared to 03/09/2018. Underlying effusion or atelectasis/consolidation difficult to exclude on t he left. A small effusion remains on the right.
[2018-03-10 11:13] LABS: MCH 28.8 pg (25.0-35.0); MCHC 30.4 g/dL (31.0-37.0); MCV 94.8 fL (80.0-100.0); Mean Platelet Volume 7.1; Platelet Count 192 k/uL (150-450); RBC 4.85 m/uL (4.30-5.90); RDW 13.8 % (11.5-15.5)
[2018-03-10 11:33] LABS: Anion Gap 4 mmol/L; Blood Urea Nitrogen 34 mg/dL (9-20); Calcium 8.4 mg/dL (8.4-10.2); Carbon Dioxide 30 mmol/L (22-30); Chloride 103 mmol/L (98-107); Glucose 195 mg/dL (74-99); Magnesium 2.1 mg/dL (1.6-2.3); Phosphorus 3.7 mg/dL (2.5-4.5); Potassium 4.9 mmol/L (3.5-5.1); Sodium 137 mmol/L (137-145)
[2018-03-10 12:01] LABS: Glucose,Whole Blood 179 mg/dL (75-99)
--- NOTE | 2018-03-10 12:53 | P.PN ---
Subjective Progress Note Date: 03/10/18 Principal diagnosis: Acute exacerbation of chronic obstructive pulmonary disease requiring intubation, and mechanical ventilatory support, EtOH withdrawal This is a 52-year-old white male patient with past medical history for advanced COPD, with chronic hypoxic respiratory failure, EtOH abuse, past history of narcotic and methamphetamine abuse, currently on methadone, former smoker, lung cancer with the left lobectomy in childhood, and the details are not available to us at this time, was brought to the emergency department on 02/25/2018 per EMS, from the [facility] with complaints of increasing shortness of breath, vomiting. Recent had multiple episodes of vomiting over the 2 days prior to admission. No fever or chills, no chest pain, no weakness, dizziness, no urinary symptoms, no headaches, no abdominal pain. Admission chest x-ray showed elevated left hemidiaphragm related to previous pulmonary resection, evidence of heart failure, was questioning of the lung markings, slight blunting of the right costophrenic angle. Abdominal x-ray was negative. CBC was within normal limits on admission, chemistry showed sodium of 139, potassium is 5.8, chloride 93, CO2 is 39, BUN was 29 and creatinine was 0.8, LFTs were within normal limits, proBNP was elevated at 3750, troponin was 0.018 , lipase was 20, and amylase was 42, urinalysis was negative. Influenza was not detected. Patient was started on breathing treatments, empiric antibiotics , he was admitted to regular medical surgical floor. On 02/28/2018 epidural response was called to the patient's room with concerns of worsening shortness of breath, blood gas was obtained, and showed pO2 of greater than 400, pCO2 of 66, and pH of 7.40. His was done on FiO2 of 100%. Patient was quite tachypneic , and respiratory distress. His pulse ox was 76% on nasal cannula at 6 L. Patient was placed on BiPAP support, but shortly after with the rapid response team was called back to the room, is a patient was intolerant of BiPAP, he was severely anxious, he was requesting to be intubated, apparently patient had been intubated before. repeat chest was obtained, showed no acute lung disease, no change, no heart failure. Follow-up chest x-ray same day showed similar findings. In view of severe respiratory distress related to acute hypoxemic respiratory failure patient was intubated and placed on mechanical ventilator. Morning was seen the patient in the intensive care unit, he is sedated, he is on mechanical ventilator, current vent settings are assist-control mode of 22 breaths per minute, tidal volume of 450, FiO2 40% and PEEP of 5, morning blood gases were reviewed, and showed pO2 of 84, pCO2 55, and pH is 7.48. This morning's chest x-ray was reviewed with Dr. Calderon, and showed overall stable findings, mild cardiomegaly and small bilateral pleural effusions, left basilar atelectasis. Maintenance IV fluid is 0.9 normal saline at a rate of 75 ML per hour, Diprivan is at 65 mics per kilo per minute. ID service is following, Gram stain of the sputum showed many gram-negative cocci bacilli, and rare gram- positive cocci. Final cultures in progress. Afebrile, hemodynamically stable. Plasma lactic acid was elevated at 3.5, this morning is down to 2.1, patient was given IV fluids. Antibiotic coverage with Levaquin and vancomycin. The patient is seen again today 03/02/2018 in follow-up in the intensive care unit. He remains intubated on mechanical ventilator settings of assist control of 18, tidal volume 400, FiO2 40% and a PEEP of 5. Morning blood gases reveal a pO2 of 104, pCO2 of 61 and a pH of 7.39. His airway resistance is still high at 15.5. He is sedated on to prevent at 70 mcg/kg/m. Cleviprex at 1 mg per hour. 0.9 normal saline at 75 ML's per hour. He has Nam HP at 20 ML's per hour with a goal of 35. Microbiology is negative thus far. White count 6.8. Hemoglobin 13.3. Bicarb 34. Creatinine 0.63. He did have some issues with bradycardia sinus bradycardia in the 40s however currently in the 50s and did not require initiation of dopamine. He remains on antibiotics in form of vancomycin and Zosyn. Chest x-ray continues to show postop changes in the left hemithorax with persistent 5 loss and bandlike area of increased attenuation. Stable compared to previous. On 03/03/2018 patient seen in follow-up in the intensive care unit, he remains intubated, on mechanical ventilator, currently on assist-control mode with a rate of 18, tidal volume of 400, FiO2 40% and PEEP of 5. This morning his blood gases showed pO2 of 85, pCO2 53, and pH of 7.32. Maintenance IV fluids include 0.9 at a rate of 75 ML per hour, to prevent at 70 mics per kilo per minute. No other drips, nutritional support in the form of vital high protein at a rate of 35 with a goal of 35. Today's chest x-ray was reviewed by Dr. Calderon showed persistent mild cardiomegaly with elevated left hemidiaphragm and small left greater than right pleural effusions with associated left basilar atelectasis and/or infiltrate. Patient has been afebrile, hemodynamically stable. Airway pressure was 37, and plateau pressure was 19, calculated airway resistance was 15.5, which is 3 times the normal limit. Lung sounds positive for diffuse wheezes, and there is still copious amount of hernandez-colored thick secretions being suctioned from the endotracheal tube. Urine culture was positive for Haemophilus influenza culture was negative. Antibiotic coverage includes Levaquin and Zosyn. ID service is following, patient is on nebulized bronchodilators, and IV steroids. History patient had a sedation holiday, and became extremely agitated, had to be re-sedated. Early this morning patient was having some issues with bradycardia, currently sinus rhythm with a rate of 61 BPM, dopamine was ordered however patient did not require the drip after all. On 03/04/2018 patient seen in follow-up in the intensive care unit. Patient is currently off, and patient is quite agitated, not following commands, tachypneic , using accessory muscles of breathing, we'll place the patient back on sedation , no spontaneous breathing trials. Lung sounds are less bronchospastic, some scattered rhonchi, patient still having copious secretions suctioned from his ET tube, thick hernandez colored. Repeat sputum culture was positive for Haemophilus influenza A. Antibiotic coverage clues Levaquin and Zosyn. Current vent settings are assist-control mode with a rate of 18, 400, 40% and PEEP of 5, this morning his blood gases showed pO2 of 78, pCO2 of 70, and pH of 7.33. IV fluids 0.9 normal saline at a rate of 75 ML per hour, Cleviprex currently at 8 mg per hour, Diprivan at 75 mics per kilo per minute, nutritional support with vital high protein tube feedings at a rate of 50 with goal of 50. Peak airway pressure is 40, and peak plateau pressure is 18. We'll continue with medical treatment for COPD, patient is not ready for spontaneous breathing trials, his labs have been reviewed, showed WBC of 15.1, hemoglobin of 14.6, sodium is 140, potassium is 5.3, CO2 is 34, B1 is 40 and creatinine 0.65. On 03/05/2018 patient seen in follow-up in the intensive care unit, remains intubated, on mechanical ventilator, current vent settings are assist-control mode with a rate of 18, tidal vital 400, FiO2 40% and PEEP of 5, this morning's blood gases showed pO2 of 70, pCO2 of 66, and pH of 7.35. This shows a chronic hypercapnic respiratory failure, these satisfactory blood gases, today's chest x -ray has been reviewed with Dr. Guzmán, and showed stable portable chest, no change in bibasilar opacities. No fever or chills, hemodynamically patient is stable, current IV fluids appointment normal saline at a rate of 75 ML per hour , Diprivan and is at 75 mics per kilo per minute, nutritional support in the form of vital high protein at 50 with a goal of 50. Patient's calculated airway resistance was 15, slightly improved. Current antibiotic coverage with Levaquin and Zosyn, and sputum cultures are positive for Haemophilus influenzae ID service is following. Lung sounds are positive for only a few scattered wheezes, improved from previous exams. Labs have been reviewed. WBC is 15.9, hemoglobin is 14.5, sodium is 141, potassium is 5.4, chloride is 104, CO2 is 33 , B1 is 15 creatinine 0.61. History patient had another sedation holiday, became extremely agitated, tachypneic, tachycardic, and was placed back on assist control and was sedation. On 03/10/2018 patient seen in follow-up on medical surgical floor. He is awake and alert, oriented 3, in no acute distress, he is working with physical therapy, sitting up on the edge of the bed. Denies any respiratory distress, currently on 4 L per nasal cannula, with a pulse ox of 97%, afebrile. He is being treated for Haemophilus influenzae tracheobronchitis. Was treated with IV antibiotics, ID service has switched the patient to oral Omnicef. Today's chest x-ray shows possible underlying left effusion, and patchy left basilar opacity could relate to underlying atelectasis, and small right pleural effusion. Elevation of the left hemidiaphragm as previously seen, related to history of left pulmonary resection. Patient is doing quite well. Arrangements are in progress for placement to a fdc near [facility] per patient and family request. Objective - Vital Signs Vital signs: Vital Signs Temp 97.5 F L 03/10/18 07:00 Pulse 88 03/10/18 11:34 Resp 20 03/10/18 08:00 BP 146/85 03/10/18 07:00 Pulse Ox 97 03/10/18 07:00 Intake & Output 03/09/18 03/10/18 03/10/18 18:59 06:59 18:59 Intake Total 1209.934 Output Total 1310 300 300 Balance -100.066 -300 -300 Intake: IV 675 Sodium Chloride 0.9% 1, 675 000 ml @ 75 mls/hr IV . [id number] BILLIE Rx#:[id number] Intake, IV Titration 234.934 Amount Clevidipine Butyrate 25 34.934 mg In Empty Bag 1 bag @ 1 MG/HR 2 mls/hr IV .Q24H BILLIE Rx#:[id number] Magnesium Sulfate-D5w Pmx 200 1 gm In Dextrose/Water 1 100ml.bag @ 100 mls/hr IVPB Q1H BILLIE Rx#: [id number] Oral 300 Output: Urine 1310 300 300 Other: Voiding Method Indwelling Catheter Indwelling Catheter # Voids 0 # Bowel Movements 1 ABP, PAP, CO, CI - Last Documented Arterial Blood Pressure 155/76 - Exam GENERAL EXAM: Awake and alert, 52-year-old white male patient on 4 L per nasal cannula, in no acute distress HEAD: Normocephalic/atraumatic. EYES: Normal reaction of pupils, equal size. Conjunctiva pink, sclera white. NOSE: Clear with pink turbinates. THROAT: No erythema or exudates. NECK: No masses, no JVD, no thyroid enlargement, no adenopathy. CHEST: No chest wall deformity. Symmetrical expansion. LUNGS: Markedly diminished breath sounds bilaterally CVS: Regular rate and rhythm, normal S1 and S2, no gallops, no murmurs, no rubs ABDOMEN: Soft, nontender. No hepatosplenomegaly, normal bowel sounds, no guarding or rigidity. EXTREMITIES: No clubbing, no edema, no cyanosis, 2+ pulses and upper and lower extremities. MUSCULOSKELETAL: Muscle strength and tone normal. SPINE: No scoliosis or deformity SKIN: No rashes CENTRAL NERVOUS SYSTEM: Sedated. Tone is normal in all 4 extremities. - Labs CBC & Chem 7: 03/10/18 10:46 03/10/18 10:46 Labs: Abnormal Lab Results - Last 24 Hours (Table) 03/09/18 03/09/18 03/10/18 Range/Units 17:04 20:48 07:00 MCHC (31.0-37.0) g/dL BUN (9-20) mg/dL Creatinine (0.66-1.25) mg/dL Glucose (74-99) mg/dL POC Glucose (mg/dL) 124 H 191 H 151 H (75-99) mg/dL 03/10/18 03/10/18 03/10/18 Range/Units 10:46 10:46 11:42 MCHC 30.4 L (31.0-37.0) g/dL BUN 34 H (9-20) mg/dL Creatinine 0.52 L (0.66-1.25) mg/dL Glucose 195 H (74-99) mg/dL POC Glucose (mg/dL) 179 H (75-99) mg/dL Assessment and Plan Plan: Assessment: #1. Acute on chronic hypoxemic respiratory failure secondary to acute exacerbation of COPD, and possible Haemophilus influenza tracheobronchitis or Haemophilus influenza pneumonia in the left lower lobe. Required intubation and placement on mechanical ventilator on 02/28/2018. Successfully extubated on and so far tolerating extubation quite well #2. Chronic hypercapnic respiratory failure related to advanced COPD with chronic hypoxemic respiratory failure patient is on home oxygen at 3 L per nasal cannula #3. Former smoker #4. EtOH abuse, narcotic abuse currently on methadone, methamphetamine abuse, [facility]. Several episodes of vomiting prior to admission, may be related to withdrawal symptoms #6. History of left lung cancer back in childhood reportedly related to history of Hodgkin's lymphoma according to the mother, with history of pulmonary resection #7. Lactic acidosis, improving Plan: Today's chest x-ray has been reviewed by Dr. Almaraz, shows small bilateral pleural effusions, and left basilar atelectasis. No acute pulmonary process. Clinically patient is doing quite well, he is working with physical therapy, in no acute distress, no worsening dyspnea. No fever or chills, IV antibiotics have been transitioned to oral Omnicef. We'll decrease the IV steroids to 40 mg every 8 hours, continue with nebulized bronchodilators. Is planning is in process for placement to an ECF near [place]. I performed a history & physical examination of the patient and discussed their management with my nurse practitioner, Fabiana Gan. I reviewed the nurse practitioner's note and agree with the documented findings and plan of care. Lung sounds are positive for diminished breath sounds. The findings and the impression was discussed with the patient. I attest to the documentation by the nurse practitioner. Time with Patient: Less than 30
--- NOTE | 2018-03-10 15:36 | PN ---
PROGRESS NOTE DATE OF SERVICE: 03/10/2018 REASON FOR FOLLOWUP: Haemophilus influenzae pneumonia. INTERVAL HISTORY: The patient is currently afebrile. He is breathing comfortably. The patient denies having any chest pain or shortness of breath. Very minimal cough. No nausea, no vomiting. No abdominal pain, no diarrhea. PHYSICAL EXAMINATION: His vital signs are stable. T-max of 98. General description is a middle-aged male, up in the chair in no distress. RESPIRATORY SYSTEM: Unlabored breathing with decreased breath sounds, no wheeze. HEART: S1, S2. Regular rate and rhythm. ABDOMEN: Soft, no tenderness. LABS: BUN of 34, creatinine 0.5, hemoglobin of 14, white count of 10.0. DIAGNOSTIC IMPRESSION AND PLAN: Patient with multiple haemophilus influenzae pneumonia, seemed to have shown clinical improvement. Will consider a short course of oral Ceftin on discharge with close outpatient followup. Continue supportive care. Family present at bedside. Their questions were answered. MMODL / IJN: [id number] /
[2018-03-10] MEDS: methylPREDNISolone SOD SUCCI 40 MG/ML 1 ML VIAL IV SCH ×2 (15:44→23:14)
[2018-03-10 17:31] LABS: Glucose,Whole Blood 169 mg/dL (75-99)
[2018-03-10 21:39] LABS: Glucose,Whole Blood 195 mg/dL (75-99)
[2018-03-10] MEDS: traZODone HCL 50 MG TAB PO SCH (21:48)
[2018-03-11] MEDS: IPRATROPIUM-ALBUTEROL 3 ML NEB INHALATION SCH ×6 (04:14→23:35)
[2018-03-11 07:29] LABS: Glucose,Whole Blood 135 mg/dL (75-99)
[2018-03-11] MEDS: METHADONE 10 MG TAB PO SCH (08:20)
[2018-03-11] MEDS: PANTOPRAZOLE 40 MG TABLET PO SCH (08:20)
[2018-03-11] MEDS: HEPARIN SODIUM,PORCINE 5,000 UNIT/ML 1 ML VIAL SQ SCH ×2 (08:20→17:14)
[2018-03-11] MEDS: LISINOPRIL 20 MG TAB PO SCH (08:20)
[2018-03-11] MEDS: amLODIPine 5 MG TAB PO SCH ×2 (08:21→21:15)
[2018-03-11] MEDS: CEFDINIR 300 MG CAP PO SCH ×2 (08:21→21:43)
[2018-03-11] MEDS: cloNIDine HCL 0.1 MG TAB PO SCH ×2 (08:21→21:15)
[2018-03-11] MEDS: methylPREDNISolone SOD SUCCI 40 MG/ML 1 ML VIAL IV SCH ×2 (08:22→17:13)
[2018-03-11] MEDS: INSULIN ASPART 100 UNIT/ML 1 ML 10 ML VIAL SQ SCH ×4 (08:22→22:02)
[2018-03-11] MEDS: BUDESONIDE 1 MG/2 ML NEBU INHALATION SCH ×2 (08:29→20:29)
[2018-03-11] MEDS: FORMOTEROL FUMARATE 20 MCG/2 ML NEBU INHALATION SCH ×2 (08:29→20:38)
--- NOTE | 2018-03-11 09:00 | XR ---
EXAMINATION TYPE: XR chest 1V portable DATE OF EXAM: 03/11/2018 COMPARISON: 03/10/2018 HISTORY: ARDS. Shortness of breath. Follow-up exam. TECHNIQUE: Single frontal view of the chest is obtained. FINDINGS: There is redemonstration of left hemidiaphragm elevation and left hemithorax volume loss w ith linear left lung base airspace disease and surgical sutures along the left mediastinal border. Park rgical clips are also seen within the mediastinum with sternotomy wires partially visualized. Left-si ded PICC is unchanged in position. Right lung and left upper lung are well aerated. Blunting of the r ight costophrenic angle again relates to trace pleural effusion. Old healed right lateral mid rib fra cture is noted. IMPRESSION: Chronic changes at the left lung base and left hemithorax volume loss, postsurgical. Per sistent trace right pleural effusion. Overall unchanged exam from the prior.
[2018-03-11 09:40] LABS: Magnesium 1.9 mg/dL (1.6-2.3); Phosphorus 3.4 mg/dL (2.5-4.5)
[2018-03-11 11:47] LABS: Glucose,Whole Blood 252 mg/dL (75-99)
[2018-03-11 12:15] VITALS: BMI 27.3
--- NOTE | 2018-03-11 14:01 | PN ---
PROGRESS NOTE DATE OF SERVICE: 03/10/2018 CHIEF COMPLAINT: Acute respiratory failure, pneumonitis, COPD. HISTORY OF PRESENT ILLNESS: This gentleman is doing well. He is fully awake and alert. He apparently is going to be going to rehab in [place]. PHYSICAL EXAM: Breath sounds are diminished, but there are a few rales and rhonchi and cardiac exam is normal. IMPRESSION: 1. Acute respiratory failure. 2. Chronic obstructive pulmonary disease. 3. Pneumonitis. PLAN: Work on discharging to fci in [place]. MMODL / IJN: [id number] /
--- NOTE | 2018-03-11 14:24 | PN ---
PROGRESS NOTE DATE OF SERVICE: 03/11/2018 REASON FOR FOLLOW UP: Haemophilus influenzae pneumonia. INTERVAL HISTORY: The patient is currently afebrile. He is breathing comfortably. Currently waiting for placement. No chest pain or shortness of breath with minimal cough. No nausea, vomiting. No abdominal pain, no diarrhea. PHYSICAL EXAMINATION: Blood pressure 131/82 with a pulse of 84, temperature 98, he is 98% on 4 L nasal cannula. General description is a middle-aged male, up in the chair in no distress. RESPIRATORY SYSTEM: Unlabored breathing, clear to auscultation anteriorly. HEART: S1, S2. Regular rate and rhythm. ABDOMEN: Soft, no tenderness. LABS: White count normal, at 10.0 as of yesterday. BUN of 34, creatinine 0.52. DIAGNOSTIC IMPRESSION AND PLAN: Patient with Haemophilus influenzae pneumonia. Patient seemed to have shown clinical improvement. He will continue on oral Ceftin for another few days to finish a course of therapy. Continue supportive care. MMODL / IJN: [id number] /
--- NOTE | 2018-03-11 14:42 | P.PN ---
Subjective Progress Note Date: 03/11/18 Principal diagnosis: Acute exacerbation of chronic obstructive pulmonary disease requiring intubation, and mechanical ventilatory support, EtOH withdrawal This is a 52-year-old white male patient with past medical history for advanced COPD, with chronic hypoxic respiratory failure, EtOH abuse, past history of narcotic and methamphetamine abuse, currently on methadone, former smoker, lung cancer with the left lobectomy in childhood, and the details are not available to us at this time, was brought to the emergency department on 02/25/2018 per EMS, from the [facility] with complaints of increasing shortness of breath, vomiting. Recent had multiple episodes of vomiting over the 2 days prior to admission. No fever or chills, no chest pain, no weakness, dizziness, no urinary symptoms, no headaches, no abdominal pain. Admission chest x-ray showed elevated left hemidiaphragm related to previous pulmonary resection, evidence of heart failure, was questioning of the lung markings, slight blunting of the right costophrenic angle. Abdominal x-ray was negative. CBC was within normal limits on admission, chemistry showed sodium of 139, potassium is 5.8, chloride 93, CO2 is 39, BUN was 29 and creatinine was 0.8, LFTs were within normal limits, proBNP was elevated at 3750, troponin was 0.018 , lipase was 20, and amylase was 42, urinalysis was negative. Influenza was not detected. Patient was started on breathing treatments, empiric antibiotics , he was admitted to regular medical surgical floor. On 02/28/2018 epidural response was called to the patient's room with concerns of worsening shortness of breath, blood gas was obtained, and showed pO2 of greater than 400, pCO2 of 66, and pH of 7.40. His was done on FiO2 of 100%. Patient was quite tachypneic , and respiratory distress. His pulse ox was 76% on nasal cannula at 6 L. Patient was placed on BiPAP support, but shortly after with the rapid response team was called back to the room, is a patient was intolerant of BiPAP, he was severely anxious, he was requesting to be intubated, apparently patient had been intubated before. repeat chest was obtained, showed no acute lung disease, no change, no heart failure. Follow-up chest x-ray same day showed similar findings. In view of severe respiratory distress related to acute hypoxemic respiratory failure patient was intubated and placed on mechanical ventilator. Morning was seen the patient in the intensive care unit, he is sedated, he is on mechanical ventilator, current vent settings are assist-control mode of 22 breaths per minute, tidal volume of 450, FiO2 40% and PEEP of 5, morning blood gases were reviewed, and showed pO2 of 84, pCO2 55, and pH is 7.48. This morning's chest x-ray was reviewed with Dr. Calderon, and showed overall stable findings, mild cardiomegaly and small bilateral pleural effusions, left basilar atelectasis. Maintenance IV fluid is 0.9 normal saline at a rate of 75 ML per hour, Diprivan is at 65 mics per kilo per minute. ID service is following, Gram stain of the sputum showed many gram-negative cocci bacilli, and rare gram- positive cocci. Final cultures in progress. Afebrile, hemodynamically stable. Plasma lactic acid was elevated at 3.5, this morning is down to 2.1, patient was given IV fluids. Antibiotic coverage with Levaquin and vancomycin. The patient is seen again today 03/02/2018 in follow-up in the intensive care unit. He remains intubated on mechanical ventilator settings of assist control of 18, tidal volume 400, FiO2 40% and a PEEP of 5. Morning blood gases reveal a pO2 of 104, pCO2 of 61 and a pH of 7.39. His airway resistance is still high at 15.5. He is sedated on to prevent at 70 mcg/kg/m. Cleviprex at 1 mg per hour. 0.9 normal saline at 75 ML's per hour. He has Nam HP at 20 ML's per hour with a goal of 35. Microbiology is negative thus far. White count 6.8. Hemoglobin 13.3. Bicarb 34. Creatinine 0.63. He did have some issues with bradycardia sinus bradycardia in the 40s however currently in the 50s and did not require initiation of dopamine. He remains on antibiotics in form of vancomycin and Zosyn. Chest x-ray continues to show postop changes in the left hemithorax with persistent 5 loss and bandlike area of increased attenuation. Stable compared to previous. On 03/03/2018 patient seen in follow-up in the intensive care unit, he remains intubated, on mechanical ventilator, currently on assist-control mode with a rate of 18, tidal volume of 400, FiO2 40% and PEEP of 5. This morning his blood gases showed pO2 of 85, pCO2 53, and pH of 7.32. Maintenance IV fluids include 0.9 at a rate of 75 ML per hour, to prevent at 70 mics per kilo per minute. No other drips, nutritional support in the form of vital high protein at a rate of 35 with a goal of 35. Today's chest x-ray was reviewed by Dr. Calderon showed persistent mild cardiomegaly with elevated left hemidiaphragm and small left greater than right pleural effusions with associated left basilar atelectasis and/or infiltrate. Patient has been afebrile, hemodynamically stable. Airway pressure was 37, and plateau pressure was 19, calculated airway resistance was 15.5, which is 3 times the normal limit. Lung sounds positive for diffuse wheezes, and there is still copious amount of hernandez-colored thick secretions being suctioned from the endotracheal tube. Urine culture was positive for Haemophilus influenza culture was negative. Antibiotic coverage includes Levaquin and Zosyn. ID service is following, patient is on nebulized bronchodilators, and IV steroids. History patient had a sedation holiday, and became extremely agitated, had to be re-sedated. Early this morning patient was having some issues with bradycardia, currently sinus rhythm with a rate of 61 BPM, dopamine was ordered however patient did not require the drip after all. On 03/04/2018 patient seen in follow-up in the intensive care unit. Patient is currently off, and patient is quite agitated, not following commands, tachypneic , using accessory muscles of breathing, we'll place the patient back on sedation , no spontaneous breathing trials. Lung sounds are less bronchospastic, some scattered rhonchi, patient still having copious secretions suctioned from his ET tube, thick hernandez colored. Repeat sputum culture was positive for Haemophilus influenza A. Antibiotic coverage clues Levaquin and Zosyn. Current vent settings are assist-control mode with a rate of 18, 400, 40% and PEEP of 5, this morning his blood gases showed pO2 of 78, pCO2 of 70, and pH of 7.33. IV fluids 0.9 normal saline at a rate of 75 ML per hour, Cleviprex currently at 8 mg per hour, Diprivan at 75 mics per kilo per minute, nutritional support with vital high protein tube feedings at a rate of 50 with goal of 50. Peak airway pressure is 40, and peak plateau pressure is 18. We'll continue with medical treatment for COPD, patient is not ready for spontaneous breathing trials, his labs have been reviewed, showed WBC of 15.1, hemoglobin of 14.6, sodium is 140, potassium is 5.3, CO2 is 34, B1 is 40 and creatinine 0.65. On 03/05/2018 patient seen in follow-up in the intensive care unit, remains intubated, on mechanical ventilator, current vent settings are assist-control mode with a rate of 18, tidal vital 400, FiO2 40% and PEEP of 5, this morning's blood gases showed pO2 of 70, pCO2 of 66, and pH of 7.35. This shows a chronic hypercapnic respiratory failure, these satisfactory blood gases, today's chest x -ray has been reviewed with Dr. Guzmán, and showed stable portable chest, no change in bibasilar opacities. No fever or chills, hemodynamically patient is stable, current IV fluids appointment normal saline at a rate of 75 ML per hour , Diprivan and is at 75 mics per kilo per minute, nutritional support in the form of vital high protein at 50 with a goal of 50. Patient's calculated airway resistance was 15, slightly improved. Current antibiotic coverage with Levaquin and Zosyn, and sputum cultures are positive for Haemophilus influenzae ID service is following. Lung sounds are positive for only a few scattered wheezes, improved from previous exams. Labs have been reviewed. WBC is 15.9, hemoglobin is 14.5, sodium is 141, potassium is 5.4, chloride is 104, CO2 is 33 , B1 is 15 creatinine 0.61. History patient had another sedation holiday, became extremely agitated, tachypneic, tachycardic, and was placed back on assist control and was sedation. On 03/10/2018 patient seen in follow-up on medical surgical floor. He is awake and alert, oriented 3, in no acute distress, he is working with physical therapy, sitting up on the edge of the bed. Denies any respiratory distress, currently on 4 L per nasal cannula, with a pulse ox of 97%, afebrile. He is being treated for Haemophilus influenzae tracheobronchitis. Was treated with IV antibiotics, ID service has switched the patient to oral Omnicef. Today's chest x-ray shows possible underlying left effusion, and patchy left basilar opacity could relate to underlying atelectasis, and small right pleural effusion. Elevation of the left hemidiaphragm as previously seen, related to history of left pulmonary resection. Patient is doing quite well. Arrangements are in progress for placement to a shelter near [facility] per patient and family request. On 03/11/2018 patient seen in follow-up on medical surgical floor, sitting up in the recliner, in no acute distress, vital signs are stable, currently on 4 L per nasal cannula his pulse ox is 98%. No fever or chills, lung sounds are positive for diminished breath sounds. Follow-up chest x-ray today was reviewed with Dr. Almaraz, showed chronic left lung base and left hemithorax volume loss, postsurgical, and trace right pleural effusion. Patient has been treated with antibiotics for Haemophilus influenza A in the sputum, ID service has recommended a short course of oral Ceftin after discharge. Patient has been working with physical therapy. His Pulmicort and Perforomist came be switched to Symbicort, can't continue on nebulized bronchodilators 4 times a day and as needed. Clinically he is stable, arrangements are in progress for placement in the ECF near [place]. From pulmonary perspective patient is stable for discharge today. Objective - Vital Signs Vital signs: Vital Signs Temp 98.0 F 03/11/18 07:00 Pulse 84 03/11/18 12:28 Resp 18 03/11/18 08:00 BP 131/82 03/11/18 07:00 Pulse Ox 98 03/11/18 07:00 Intake & Output 03/10/18 03/11/18 03/11/18 18:59 06:59 18:59 Intake Total 200 700 Output Total 700 800 Balance -500 -100 Weight 84 kg Intake: Oral 200 700 Output: Urine 700 800 Other: Voiding Method Indwelling Catheter Toilet Urinal Urinal Diaper # Voids 2 ABP, PAP, CO, CI - Last Documented Arterial Blood Pressure 155/76 - Exam GENERAL EXAM: Awake and alert, 52-year-old white male patient on 4 L per nasal cannula, in no acute distress HEAD: Normocephalic/atraumatic. EYES: Normal reaction of pupils, equal size. Conjunctiva pink, sclera white. NOSE: Clear with pink turbinates. THROAT: No erythema or exudates. NECK: No masses, no JVD, no thyroid enlargement, no adenopathy. CHEST: No chest wall deformity. Symmetrical expansion. LUNGS: Markedly diminished breath sounds bilaterally CVS: Regular rate and rhythm, normal S1 and S2, no gallops, no murmurs, no rubs ABDOMEN: Soft, nontender. No hepatosplenomegaly, normal bowel sounds, no guarding or rigidity. EXTREMITIES: No clubbing, no edema, no cyanosis, 2+ pulses and upper and lower extremities. MUSCULOSKELETAL: Muscle strength and tone normal. SPINE: No scoliosis or deformity SKIN: No rashes CENTRAL NERVOUS SYSTEM: Sedated. Tone is normal in all 4 extremities. - Labs CBC & Chem 7: 03/10/18 10:46 03/10/18 10:46 Labs: Abnormal Lab Results - Last 24 Hours (Table) 03/10/18 03/10/18 03/11/18 Range/Units 17:19 21:24 07:12 POC Glucose (mg/dL) 169 H 195 H 135 H (75-99) mg/dL 03/11/18 Range/Units 11:45 POC Glucose (mg/dL) 252 H (75-99) mg/dL Assessment and Plan Plan: Assessment: #1. Acute on chronic hypoxemic respiratory failure secondary to acute exacerbation of COPD, and possible Haemophilus influenza tracheobronchitis or Haemophilus influenza pneumonia in the left lower lobe. Required intubation and placement on mechanical ventilator on 02/28/2018. Successfully extubated on and so far tolerating extubation quite well #2. Chronic hypercapnic respiratory failure related to advanced COPD with chronic hypoxemic respiratory failure patient is on home oxygen at 3 L per nasal cannula #3. Former smoker #4. EtOH abuse, narcotic abuse currently on methadone, methamphetamine abuse, patient is from [place] re[facility] facility #5. Several episodes of vomiting prior to admission, may be related to withdrawal symptoms #6. History of left lung cancer back in childhood reportedly related to history of Hodgkin's lymphoma according to the mother, with history of pulmonary resection #7. Lactic acidosis, improving Plan: Clinically patient is stable, no fever or chills, his IV antibiotics being transitioned to oral course of Ceftin after discharge. He is awake and alert, no worsening dyspnea, chest x-ray shows chronic left hemidiaphragm changes related to previous pulmonary resection, and trace pleural effusion on the right. Vitals are stable, no acute complaints. Ready for discharge to [facility] near [place] today from pulmonary perspective. I performed a history & physical examination of the patient and discussed their management with my nurse practitioner, Fabiana Gan. I reviewed the nurse practitioner's note and agree with the documented findings and plan of care. Lung sounds are positive for diminished breath sounds. The findings and the impression was discussed with the patient. I attest to the documentation by the nurse practitioner. Time with Patient: Less than 30
--- NOTE | 2018-03-11 16:22 | DS ---
DISCHARGE SUMMARY CHIEF COMPLAINT: Acute respiratory failure and chronic obstructive pulmonary disease. HISTORY OF PRESENT ILLNESS AND PHYSICAL EXAM: Details of this man's history and physical can be found in the initial workup. LABORATORY STUDIES: While he was in the hospital, he had laboratory studies, details of which can be found in the laboratory section of his chart. COURSE IN THE HOSPITAL: After admission, he was placed on bedrest and started on updrafts, antibiotics and steroids, but he did not do well, remained very congested and short of breath. He then suddenly deteriorated and was moved to ICU where eventually had to be intubated. He is on the ventilator for several days and was then able to be removed successfully and did very well. He was unable to walk and arrangements are being made for him to transferred to a detention. FINAL DIAGNOSES: 1. Acute respiratory failure. 2. Exacerbation of chronic obstructive pulmonary disease. 3. Pneumonitis. OPERATIONS: None. CONSULTATIONS: Pulmonology. He is improved. MMLENNIE / KAL: [id number] /
[2018-03-11 17:14] LABS: Glucose,Whole Blood 133 mg/dL (75-99)
[2018-03-11] MEDS: traZODone HCL 50 MG TAB PO SCH (21:15)
[2018-03-11 21:56] LABS: Glucose,Whole Blood 178 mg/dL (75-99)
[2018-03-12] MEDS: HEPARIN SODIUM,PORCINE 5,000 UNIT/ML 1 ML VIAL SQ SCH ×4 (00:13→23:57)
[2018-03-12] MEDS: methylPREDNISolone SOD SUCCI 40 MG/ML 1 ML VIAL IV SCH ×3 (00:13→15:38)
[2018-03-12] MEDS: IPRATROPIUM-ALBUTEROL 3 ML NEB INHALATION SCH ×5 (03:42→20:26)
[2018-03-12 07:25] LABS: Glucose,Whole Blood 160 mg/dL (75-99)
[2018-03-12] MEDS: PANTOPRAZOLE 40 MG TABLET PO SCH (07:53)
[2018-03-12] MEDS: LISINOPRIL 20 MG TAB PO SCH (07:53)
[2018-03-12] MEDS: cloNIDine HCL 0.1 MG TAB PO SCH ×2 (07:53→22:25)
[2018-03-12] MEDS: amLODIPine 5 MG TAB PO SCH ×2 (07:53→22:24)
[2018-03-12] MEDS: INSULIN ASPART 100 UNIT/ML 1 ML 10 ML VIAL SQ SCH ×4 (07:54→22:24)
[2018-03-12] MEDS: CEFDINIR 300 MG CAP PO SCH ×2 (07:54→22:24)
[2018-03-12] MEDS: METHADONE 10 MG TAB PO SCH (07:54)
[2018-03-12] MEDS: BUDESONIDE 1 MG/2 ML NEBU INHALATION SCH ×2 (08:57→20:26)
[2018-03-12] MEDS: FORMOTEROL FUMARATE 20 MCG/2 ML NEBU INHALATION SCH ×2 (08:57→20:26)
[2018-03-12 12:26] LABS: Glucose,Whole Blood 380 mg/dL (75-99)
[2018-03-12 17:23] LABS: Glucose,Whole Blood 38 mg/dL (75-99)
[2018-03-12 17:23] LABS: Glucose,Whole Blood 40 mg/dL (75-99)
[2018-03-12 17:41] LABS: Glucose,Whole Blood 45 mg/dL (75-99)
[2018-03-12 17:41] LABS: Glucose,Whole Blood 48 mg/dL (75-99)
[2018-03-12 18:18] LABS: Glucose,Whole Blood 153 mg/dL (75-99)
[2018-03-12 20:42] LABS: Glucose,Whole Blood 189 mg/dL (75-99)
--- NOTE | 2018-03-12 20:50 | PN ---
PROGRESS NOTE DATE OF SERVICE: 03/12/2018 REASON FOR FOLLOWUP: Haemophilus influenzae pneumonia. INTERVAL HISTORY: The patient is afebrile. He is breathing more comfortably. Patient denies having any chest pain or shortness of breath. Very minimal cough. No nausea, vomiting, abdominal pain or diarrhea. PHYSICAL EXAMINATION: Blood pressure 112/58 with a pulse of 98, temperature 98.5. He is 92% on 2 L nasal cannula. General description is a middle-aged male up in the chair in no distress. RESPIRATORY SYSTEM: Unlabored breathing. Clear to auscultation anteriorly. HEART: S1, S2. Regular rate and rhythm. ABDOMEN: Soft. No tenderness. LABS: No new labs have been obtained today. DIAGNOSTIC IMPRESSION AND PLAN: Patient with Haemophilus influenzae pneumonia that has been adequately treated. Antibiotic can be safely discontinued on discharge. Continue with supportive care. MMODL / IJN: [id number] /
[2018-03-12] MEDS: traZODone HCL 50 MG TAB PO SCH (22:25)
[2018-03-12] MEDS: ALPRAZolam 0.25 MG TAB PO PRN (22:31)
[2018-03-13] MEDS: IPRATROPIUM-ALBUTEROL 3 ML NEB INHALATION SCH ×3 (00:46→07:32)
[2018-03-13] MEDS: methylPREDNISolone SOD SUCCI 40 MG/ML 1 ML VIAL IV SCH ×2 (02:25→07:40)
[2018-03-13 06:20] VITALS: BP 133/91; RESP 18; TEMP 97.7
[2018-03-13] MEDS: BUDESONIDE 1 MG/2 ML NEBU INHALATION SCH (07:32)
[2018-03-13 07:33] LABS: Glucose,Whole Blood 191 mg/dL (75-99)
[2018-03-13] MEDS: FORMOTEROL FUMARATE 20 MCG/2 ML NEBU INHALATION SCH (07:33)
[2018-03-13] MEDS: INSULIN ASPART 100 UNIT/ML 1 ML 10 ML VIAL SQ SCH (07:40)
[2018-03-13] MEDS: HEPARIN SODIUM,PORCINE 5,000 UNIT/ML 1 ML VIAL SQ SCH (07:40)
[2018-03-13] MEDS: amLODIPine 5 MG TAB PO SCH (07:40)
[2018-03-13] MEDS: PANTOPRAZOLE 40 MG TABLET PO SCH (07:40)
[2018-03-13] MEDS: LISINOPRIL 20 MG TAB PO SCH (07:40)
[2018-03-13] MEDS: cloNIDine HCL 0.1 MG TAB PO SCH (07:40)
[2018-03-13] MEDS: ALPRAZolam 0.25 MG TAB PO PRN (07:44)
[2018-03-13] MEDS: METHADONE 10 MG TAB PO SCH (07:44)
[2018-03-13] MEDS: CEFDINIR 300 MG CAP PO SCH (07:44)
[2018-03-13 07:51] VITALS: PULSE 80
--- NOTE | 2018-03-13 15:08 | PN ---
PROGRESS NOTE DATE OF SERVICE: 03/12/2018 CHIEF COMPLAINT: COPD. HISTORY OF PRESENT ILLNESS: This gentleman is doing well. Breathing is under good control. We are awaiting a transfer to a home in [place]. I attempted to call a Dr. Kapoor, but there is no answer. PHYSICAL EXAM: Breath sounds are diminished and he still has rhonchi and rales throughout. Cardiac exam is normal. He is up and about and awake and alert. IMPRESSION: 1. Chronic obstructive pulmonary disease. 2. Respiratory failure. 3. History of substance abuse. PLAN: Await transfer to [facility] in [place] after talking to Dr. Kapoor, . MMODL / IJN: [id number] /
--- NOTE | 2018-03-13 20:39 | DS ---
DISCHARGE SUMMARY CHIEF COMPLAINT: Difficulty breathing. HISTORY OF PRESENT ILLNESS AND PHYSICAL EXAM: Details of this man's history and physical can be found in the initial workup. LABORATORY STUDIES: While he was in a hospital he had laboratory studies, details of which can be found in the laboratory section of his chart. COURSE IN HOSPITAL: After admission he was placed on bedrest, started on intravenous fluids and was treated for COPD. He was started on updrafts, antibiotics and steroids. He continued to have significant leukorrhea and become progressively more short of breath. One night he went into respiratory failure and had to be moved to ICU. He was intubated and was on the ventilator for approximately a week. This was able to be removed and he is able to function on his own. However, it was determined he would go to a rehab facility in [place] and arrangements were finally made on the . FINAL DIAGNOSES: 1. Acute respiratory failure. 2. Exacerbation of chronic obstructive pulmonary disease. 3. Bilateral bronchial pneumonia. 4. History of substance abuse and addiction. OPERATIONS: None. CONSULTATIONS: Pulmonology. He is improved. MMODL / IJN: [id number] /
== END 2018-03-13 10:15 | DRG 207 ==
LOC: EC 13:41 → 4SSUR 16:59 → 2SICU 02-28 17:12 → 4MS4W 03-09 21:54
PROVIDERS: ADMIT Family Medicine; ATTEND Family Medicine
PROC: 5A1955Z Respiratory Ventilation, Greater than 96 Consecutive Hours (ICD-10-PCS; principal; 2018-02-28)
PROC: 0BH17EZ Insertion of Endotracheal Airway into Trachea, Via Natural or Artificial Opening (ICD-10-PCS; 2018-02-28)
PROC: 02HV33Z Insertion of Infusion Device into Superior Vena Cava, Percutaneous Approach (ICD-10-PCS; 2018-03-05)
DX: J44.1 Chronic obstructive pulmonary disease with (acute) exacerbation (principal); J14 Pneumonia due to Hemophilus influenzae; J96.21 Acute and chronic respiratory failure with hypoxia; J96.22 Acute and chronic respiratory failure with hypercapnia; J98.11 Atelectasis; E87.2 Acidosis; F10.239 Alcohol dependence with withdrawal, unspecified; F11.20 Opioid dependence, uncomplicated; Z99.11 Dependence on respirator [ventilator] status; J44.0 Chronic obstructive pulmonary disease with (acute) lower respiratory infection; F15.10 Other stimulant abuse, uncomplicated; I11.0 Hypertensive heart disease with heart failure; I50.9 Heart failure, unspecified; J84.10 Pulmonary fibrosis, unspecified; Z79.899 Other long term (current) drug therapy; Z85.118 Personal history of other malignant neoplasm of bronchus and lung; Z85.71 Personal history of Hodgkin lymphoma; Z87.891 Personal history of nicotine dependence; Z99.81 Dependence on supplemental oxygen; Z90.2 Acquired absence of lung [part of]; R11.10 Vomiting, unspecified
CPT/HCPCS: 36415; 36569; 36600; 71045; 71046; 74018; 76937; 80048; 80053; 80202; 81001; 81003; 82150; 82550; 82553; 82805; 83036; 83605; 83690; 83735; 83880; 84100; 84484; 85025; 85027; 85610; 85730; 87040; 87070; 87205; 87502; 93005; 94002; 94003; 94640; 94644; 94760; 94770; 96374; 99285